=== PATIENT | male | born 1945 | race Hispanic/Latino ===

== ENCOUNTER 2017-08-21 05:48 | Inpatient (IN) | payer OTHER, MEDICARE ==
[2014-12-15 10:13] VITALS: PULSE 124
[2017-08-15 15:47] VITALS: BMI 30.6
[2017-08-21] MEDS ORDERED: Lactated Ringer's 1,000 ML IV ONE ×2 (06:35→11:00)
[2017-08-21] MEDS ORDERED: Sodium Chloride 0.9% 20 ML IV ONE (08:12)
[2017-08-21] MEDS ORDERED: Morphine 1 mg/ml preservative-free Inj(Duramorph) ONE (08:12)
[2017-08-21] MEDS ORDERED: EPINEPHrine 1 mg/ml (1:1000) Inj ONE (08:12)
[2017-08-21] MEDS ORDERED: Thrombin Topical 5,000 IU Spray Kit ONE (08:13)
[2017-08-21] MEDS ORDERED: Absorbable Gelatin Sponge Size 100 ONE (08:13)
[2017-08-21] MEDS ORDERED: Bupivacaine 0.5% Inj(30mL) ONE (08:13)
[2017-08-21] MEDS ORDERED: Neostigmine Methylsulfate 2 MG/2 ML ML IV ONE (08:20)
[2017-08-21] MEDS ORDERED: Succinylcholine 200 mg/10 ml Inj IV ONE (08:20)
[2017-08-21] MEDS ORDERED: Midazolam 2 MG/2 ML VIAL ONE (08:20)
[2017-08-21] MEDS ORDERED: Lidocaine 4% (Laryng-O-Jet) Kit MM ONE (08:20)
[2017-08-21] MEDS ORDERED: Propofol 10 mg/ml Inj (20 ML) ONE (08:20)
[2017-08-21] MEDS ORDERED: Rocuronium 10 mg/ml (5 ml) ONE ×2 (08:21→09:45)
[2017-08-21] MEDS ORDERED: ePHEDrine 50 mg/ml Inj ONE (09:26)
[2017-08-21] MEDS ORDERED: Sodium Chloride 0.9% Inj (10mL) IV ONE (10:49)
--- NOTE | 2017-08-21 11:36 | PCM.SURG1 ---
Surgeon's Initial Post Op Note - Surgeon's Notes Surgeon: Neema Adler MD Renderer: FIFI Monterroso Type of Anesthesia: General Endo Pre-Operative Diagnosis: Right Knee Severe osteoarthritis Operative Findings: see op report Post-Operative Diagnosis: same as pre-op dx Operation Performed: R TKR Specimen/Specimens Removed: right knee bone and soft tissue Estimated Blood Loss: EBL {In ML}: 200 Date of Surgery/Procedure: 08/21/17 Time of Surgery/Procedure: 09:30
[2017-08-21] MEDS: HYDROmorphone 0.5 mg/0.5 ml ISec IVP PRN ×4 (11:54→12:55)
--- NOTE | 2017-08-21 13:16 | RAD ---
PROCEDURE: Right Knee Radiographs. HISTORY: s/p RTKR COMPARISON: None. FINDINGS: BONES: Status post right total knee replacement. No acute osseous fracture. Prosthesis in gross alignment. Postoperative changes noted with anterior surgical rhonda and air in suprapatellar bursa. JOINTS: As above JOINT EFFUSION: None. OTHER FINDINGS: None. IMPRESSION: Status post right TKR.
--- NOTE | 2017-08-21 13:36 | RAD ---
PROCEDURE: Pelvis and right hip HISTORY: s/p RTKR (and previous RTHR) COMPARISON: 03/16/2015 TECHNIQUE: Standard protocol for this study/examination. FINDINGS: Satisfactory position alignment of bilateral VERONICA is as visualized without evidence of loosening or hardware failure. Otherwise unremarkable pelvic osseous structures and lower lumbar spine. IMPRESSION: No significant or acute findings to account for/ related to the clinical presentation. No significant interval change compared to the prior examination(s).
--- NOTE | 2017-08-21 14:10 | CP.PCM.HP ---
History of Present Illness - History of Present Illness History of Present Illness: 71 yo male with history of CAD, HLD, HTN and previous AFib had right TKR today after failing conservative management of osteoarthritis of the right knee. Present on Admission - Present on Admission Any Indicators Present on Admission: No History of DVT/PE: No History of Uncontrolled Diabetes: No Urinary Catheter: No Decubitus Ulcer Present: No Review of Systems - Review of Systems All systems: reviewed and no additional remarkable complaints except (aside from those mentioned above, 12 point system review were negative by me) Past Patient History - Infectious Disease Hx of Infectious Diseases: None - Tetanus Immunizations Tetanus Immunization: Unknown - Past Medical History & Family History Past Medical History?: Yes Past Family History: Reviewed and not pertinent - Past Social History Smoking Status: Former Smoker Alcohol: Occasional Drugs: Denies - CARDIAC Hx Cardiac Disorders: Yes Hx Atrial Fibrillation: Yes Hx Hypercholesterolemia: Yes Hx Hypertension: Yes Other/Comment: IRRAGULAR HEARTBEAT - PULMONARY Hx Respiratory Disorders: No - NEUROLOGICAL Hx Neurological Disorder: No - HEENT Hx HEENT Problems: Yes (RETINA) Hx Cataracts: Yes (O.U) Hx Glaucoma: Yes (both) Other/Comment: left DETACHED RETINA, bilateral cataract surgery - RENAL Hx Chronic Kidney Disease: Yes Hx Kidney Stones: Yes (LEFT) - ENDOCRINE/METABOLIC Hx Endocrine Disorders: No - HEMATOLOGICAL/ONCOLOGICAL Hx Blood Disorders: Yes Hx AIDS: No Hx Anemia: Yes Hx Blood Transfusions: Yes Hx Blood Transfusion Reaction: No Hx Human Immunodeficiency Virus (HIV): No - INTEGUMENTARY Hx Dermatological Problems: No Hx Basil Cell: Yes - MUSCULOSKELETAL/RHEUMATOLOGICAL Hx Musculoskeletal Disorders: Yes Hx Arthritis: Yes Hx Back Pain: Yes Hx Falls: No Hx Osteoarthritis: Yes Hx Rheumatoid Arthritis: No Hx Spinal Stenosis: Yes Other/Comment: 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; dissectomy of L4-L5 - GASTROINTESTINAL Hx Gastrointestinal Disorders: No Hx Gall Bladder Disease: Yes (gallstones) - GENITOURINARY/GYNECOLOGICAL Hx Genitourinary Disorders: No Other/Comment: BPH - PSYCHIATRIC Hx Psychophysiologic Disorder: No Hx Emotional Abuse: No Hx Physical Abuse: No Hx Substance Use: No - SURGICAL HISTORY Hx Surgeries: Yes Hx Cataract Extraction: Yes Hx Cardiac Catheterization: Yes Hx Eye Surgery: Yes (LT RETINA DETACHEMENT) Hx Joint Replacement: Yes (BILATERAL HIP REPLACEMENT) Hx Musculoskeletal Surgery: Yes (LUMBAR DISECTOMY 2003) Hx Orthopedic Surgery: Yes (LEFT TOTAL HIP) Other/Comment: SPINAL DISSECTOMY . RETINA DETTACHMENT O.S - ANESTHESIA Hx Anesthesia: Yes Hx Anesthesia Reactions: No Hx Malignant Hyperthermia: No Has any member of the family had a problem w/ anesthesia?: No Meds Allergies/Adverse Reactions: Allergies Allergy/AdvReac Type Severity Reaction Status Date / Time No Known Allergies Allergy Verified 03/11/15 17:21 Physical Exam - Constitutional Appears: No Acute Distress - Head Exam Head Exam: ATRAUMATIC - Eye Exam Eye Exam: absent: Scleral icterus - ENT Exam ENT Exam: Mucous Membranes Moist - Neck Exam Neck exam: Negative for: Meningismus - Respiratory Exam Respiratory Exam: absent: Rhonchi, Wheezes, Respiratory Distress - Cardiovascular Exam Cardiovascular Exam: REGULAR RHYTHM, +S1, +S2 - GI/Abdominal Exam GI & Abdominal Exam: Soft. absent: Tenderness - Rectal Exam Rectal Exam: Deferred - Neurological Exam Neurological exam: Alert, Oriented x3 - Psychiatric Exam Psychiatric exam: Normal Affect - Skin Skin Exam: Dry, Intact Results - Vital Signs Recent Vital Signs: Last Vital Signs Temp 97 F L 08/21/17 13:35 Pulse 79 08/21/17 13:50 Resp 17 08/21/17 13:50 BP 122/79 08/21/17 13:50 Pulse Ox 97 08/21/17 13:50 Assessment & Plan (1) Status post total knee replacement, right Status: Acute Comment: pain manageable with Dilaudid via SANDFILL OPERATOR SURFACE (2) Hypertension Status: Chronic Comment: BP stable. continue Lisinopril and HCTZ (3) HLD (hyperlipidemia) Status: Chronic Priority: Low Comment: continue Atorvastatin (4) Atrial fibrillation Status: Acute Comment: presently in sinus with normal rate. previously on Xarelto for months but was DC because rhythm remained in sinus; denied bleeding incident
[2017-08-21] MEDS ORDERED: ceFAZolin 1 GM in Sodium Chloride 0.9% 100 ML IVPB ONE (17:30)
[2017-08-21] MEDS ORDERED: Oxycodone/Acetaminophen 5/325 mg Tab PO PRN (17:33)
[2017-08-21] MEDS: Lactated Ringer's 1,000 ML IV SCH ×2 (17:35→21:51)
[2017-08-21] MEDS ORDERED: Pneumococcal 23-Valent Vaccine IM ONE (21:00)
[2017-08-21] MEDS: oxyCODONE 10 mg ER Tab (oxyCONTIN) PO SCH (21:01)
--- NOTE | 2017-08-21 21:09 | OP ---
PROCEDURE DATE: 08/21/2017 PREOPERATIVE DIAGNOSIS: Right knee osteoarthritis. POSTOPERATIVE DIAGNOSIS: Right knee osteoarthritis. PROCEDURE: Right total knee replacement. IMPLANTS SIZE: Size 5 femur, size 5 tibial baseplate, size 11 poly, and 35 mm patella button. ATTENDING SURGEON: Neema Adler MD LAYAWAY CLERK: Jose C Mai PA-C TYPE OF ANESTHESIA: General. ESTIMATED BLOOD LOSS: 50 mL COMPLICATIONS: None. HISTORY: The patient with prolonged history of right knee pain progressively getting worse despite extensive conservative management, which included activity modification, injections, anti-inflammatory modification and physical therapy. X-rays had revealed advanced arthritis. Patient was indicated for total knee replacement due to continued pain and limited mobility. I had a detailed discussion with the patient in the office explaining the nature of the surgery, alternatives of surgery, risks and benefits, rehabilitation protocol and surgical markings. Risks of surgery include but not limited to continued pain, lack of motion, infection, vascular injury, DVT/PE, nerve injury including peroneal nerve dysfunction, reflex sympathetic dystrophy, compartment syndrome, unforeseen medical and/or anesthesia complications, limb loss, and even . The patient expressed an understanding of the risks and possible benefits of the procedure, and is also aware of the alternatives to surgery. PROCEDURE: On the day of the surgery, the patient was admitted to pre-operative holding area. A laterality sheet was completed confirming the correct operative site. The correct surgical knee was marked in the holding area and informed consent was signed from the patient. Once again, I reviewed the risks and benefits of the surgery with the patient in detail. These risks include but are not limited to continued pain, lack of motion, infection, vascular injury, DVT / PE, nerve injury including peroneal nerve dysfunction, reflex sympathetic dystrophy, symptomatic hardware, need for further procedure and surgeries, instability, iatrogenic fractures, compartment syndrome, unforeseen medical and/or anesthesia complications, limb loss, and even . The patient expressed an understanding of the risks and possible benefits of the procedure, also aware of the alternatives to surgery and signed the informed consent. The patient was transported to the operating room and placed in the supine position, general anesthesia with spinal was obtained. A padded tourniquet was applied to patient's operative thigh and appropriate prophylactic antibiotics were given. The operative leg was draped and prepped in standard sterile manner. Timeout was completed, confirming patient's right knee to be the correct operative site. Using an Esmarch, the extremity was exsanguinated and tourniquet was inflated to 350 mmHg. The surgical incision markings were made using patella border, tibial tubercle, patella and quadriceps tendon. Using a 10 blade, a midline incision was made. Skin dissection was taken until the prepatellar fascia was identified and the corners of the patellar tendon were marked for proper closure at the end of the procedure. Using a fresh 10 blade, a medial parapatellar arthrotomy was performed. The knee was exposed in the standard manner. The deep MCL was elevated for exposure, medial and lateral menisci were removed, ACL and PCL were also transected. The tibia was subluxed anteriorly. Planned tibial cut was made with power saw, using extra-medullary guide, perpendicular to mechanical axis of the tibia. After the cut was made, the alignment was also checked and was found to be appropriate. Tibial cut surface was measured with trial base plate and it was noted that size 5 tibial baseplate was provide sufficient coverage without overhang. Tibial component was externally rotated and marked. Next, the knee was placed into 90 degrees of flexion. A drill hole was made within the femoral notch anterior to PCL insertion for placement of intramedullary femoral suma. Intramedullary femoral suma was inserted within the femoral canal and planned distal femoral cut was made. After the cut, knee was brought into full extension. Spacer blocks were used to check the extension balancing both in full extension and 30 degrees of flexion. It was found that a 11 mm trial spacer block allowed full extension with symmetric varus and valgus balancing. Next we proceed with Patella resurfacing. Patella width was found to 28 mm. Using the free-hand technique the arthritic patella surface was resected. Patella was sized using the guide and it was noted that 35 mm patella dome button would be appropriate for the patient. Next the size of femoral component was determined using the posterior referencing guide. It was noted that a size 5 femur would be appropriate for this patient without causing any significant notching. A 4 x 1 cutting block was placed and flexion gap balancing was checked. The flexion gap was found to be symmetric to the extension gap. Anterior and posterior condyle, anterior and posterior chamfer cuts were made. Next, appropriate size box cut for femoral component was prepared using the guide. The femoral trial component was impacted onto the distal femur. Appropriate size tibial trial component was also placed on the cut surface of the tibia. Using the drill and punch, keel for tibial implant was prepared. Trial tibial tray was secured onto the tibia using pins. Different size trial polyethylene inserts were secured on to the trial tibial tray to critically assess the following parameters: Full range of motion, extension and flexion gap balancing, mid-flexion stability, anterior and posterior drawer, and patellar tracking. All parameter were found to be satisfactory with 11 mm insert. All the trial components were removed. Implants were opened on the back table. Cement was mixed and we proceed with cement fixation of the implants. Tibial tray, femoral component and patellar dome button were secured with cement. Polyethylene insert was secured onto the tibial tray using locking mechanism. The knee was reduced and brought into full extension. Cement was allowed to harden until final component fixation. Knee was taken through the final range of motion for stability testing, and found to be satisfactory. 60 cc of custom cocktail mixture was injected into posterior capsule, MCL, LCL, quadriceps tendon, and patellar tendon. Wound was copiously irrigated with sterile antibiotic solution using pulse lavage. Arthrotomy was closed using heavy suture and wound was closed in standard manner. Patient was extubated, transferred to stretcher and taken to the recovery room. Post-operative instructions were provided, physical therapy consult was requested along with DVT prophylaxis and appropriate pain medications. During this procedure, I was assisted by Jose C Mai PA-C, who assisted in positioning the patient on the operating room table as well as transferring the patient from the operating room table to the recovery room stretcher. In addition, Jose C Mai PA-C assisted me during the actual operative procedure by positioning, protecting critical neurovascular structures, exposure of the joint, and proper positioning of the implants. The presence of Jose C Mai PA-C as my operative business development assistant was medically necessary to ensure the utmost safety of the patient in the pre, intra-, and post-operative periods. Neema Adler MD
[2017-08-21] MEDS ORDERED: Latanoprost 0.005% Opht SOUTION OU SCH (22:00)
[2017-08-22] MEDS ORDERED: ceFAZolin 1 GM in Sodium Chloride 0.9% 100 ML IVPB ONE (01:30)
[2017-08-22 06:33] LABS: BASO % 0.4 % (0.0-2.0); EOS # 0.2 K/uL (0.0-0.7); EOS % 2.7 % (0.0-4.0); HEMATOCRIT 31.1 % (35.0-51.0); LYMPH # 1.6 K/uL (1.0-4.3); LYMPH % 26.4 % (20.0-40.0); MEAN CELL VOLUME 97.5 fl (80.0-94.0); MEAN CORPUSCULAR HEMOGLOBIN 32.8 pg (27.0-31.0); MEAN CORPUSCULAR HGB CONC 33.6 g/dL (33.0-37.0); MEAN PLATELET VOLUME 7.9 fl (7.2-11.7); MONO # 0.8 K/uL (0.0-0.8); MONO % 12.9 % (0.0-10.0); NEUT # 3.5 K/uL (1.8-7.0); NEUT % 57.6 % (50.0-75.0); NRBC % 0.1 % (0.0-0.0); RED CELL DISTRIBUTION WIDTH 13.4 % (11.5-14.5); WHITE BLOOD COUNT 6.1 K/uL (4.8-10.8)
[2017-08-22 06:44] LABS: BLOOD UREA NITROGEN 21 mg/dl (9-20); CARBON DIOXIDE 28 mmol/L (22-30); CHLORIDE 101 mmol/L (98-107); GFR AFRICAN-AMERICAN > 60; GLUCOSE,RANDOM 123 mg/dL (75-110); POTASSIUM 3.9 MMOL/L (3.6-5.0); SODIUM 137 mmol/l (132-148)
[2017-08-22 07:25] LABS: PARTIAL THROMBOPLASTIN TIME 28.3 Seconds (25.6-37.1)
[2017-08-22 08:14] VITALS: BP 103/68; PULSE 74; RESP 20; TEMP 99.4; O2SAT 97
[2017-08-22] MEDS: oxyCODONE 10 mg ER Tab (oxyCONTIN) PO SCH (08:27)
--- NOTE | 2017-08-22 08:27 | CP.PCM.CON ---
History of Present Illness - History of Present Illness History of Present Illness: This 70-year-old man underwent knee replacement yesterday. He has had a history of atrial fibrillation following a hip replacement in March 2014. The patient had an extended and a stormy po op recovery at that time. The patient is a hypertensive with a history of dyslipidemia and takes a statin as well as an ALFREDO inhibitor. He has never been a smoker has never suffered a myocardial infarction of congestive cardiac failure. His physical activities with severely curtailed because of osteoarthritic pains in both knees. Physical examination shows a middle aged man alert, awake and coherent man and fairly symptom free at this point. Afebrile with a pulse rate of 68 bpm regular and a blood pressure of 114/70 mmHg. He is jugular venous pressure was not elevated and there was no edema on his lower extremities. The pedal pulses were well felt. The surgical site was dry and there was no evidence of induration or redness. The apex was in the fifth space. The first and second heart sounds were normal. There was no murmur or gallop. Abdomen was soft liver and spleen are not palpable. He is hemoglobin this morning was 10.4 g as compared to 14.4 at the beginning of August when preop labs were drawn. His WBC count and platelet counts were normal. His BUN was 21 mg. His electrolytes were normal. Impression: Post op day 1 following portly replacement. History of hypertension and dyslipidemia and chronic intertriginous obesity. The patient is stable from cardiovascular point of view. I have requested CBC for tomorrow to monitor his hemoglobin. I started him on iron replacement. The patient may proceed with post op physical therapy. Past Patient History - Infectious Disease Hx of Infectious Diseases: None - Tetanus Immunizations Tetanus Immunization: Unknown - Past Medical History & Family History Past Medical History?: Yes Past Family History: Reviewed and not pertinent - Past Social History Smoking Status: Former Smoker Alcohol: Occasional Drugs: Denies - CARDIAC Hx Cardiac Disorders: Yes Hx Atrial Fibrillation: Yes Hx Hypercholesterolemia: Yes Hx Hypertension: Yes Other/Comment: IRRAGULAR HEARTBEAT - PULMONARY Hx Respiratory Disorders: No - NEUROLOGICAL Hx Neurological Disorder: No - HEENT Hx HEENT Problems: Yes (RETINA) Hx Cataracts: Yes (O.U) Hx Glaucoma: Yes (both) Other/Comment: left DETACHED RETINA, bilateral cataract surgery - RENAL Hx Chronic Kidney Disease: Yes Hx Kidney Stones: Yes (LEFT) - ENDOCRINE/METABOLIC Hx Endocrine Disorders: No - HEMATOLOGICAL/ONCOLOGICAL Hx Blood Disorders: Yes Hx AIDS: No Hx Anemia: Yes Hx Blood Transfusions: Yes Hx Blood Transfusion Reaction: No Hx Human Immunodeficiency Virus (HIV): No - INTEGUMENTARY Hx Dermatological Problems: No Hx Basil Cell: Yes - MUSCULOSKELETAL/RHEUMATOLOGICAL Hx Musculoskeletal Disorders: Yes Hx Arthritis: Yes Hx Back Pain: Yes Hx Falls: No Hx Osteoarthritis: Yes Hx Rheumatoid Arthritis: No Hx Spinal Stenosis: Yes Other/Comment: 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; dissectomy of L4-L5 - GASTROINTESTINAL Hx Gastrointestinal Disorders: No Hx Gall Bladder Disease: Yes (gallstones) - GENITOURINARY/GYNECOLOGICAL Hx Genitourinary Disorders: No Other/Comment: BPH - PSYCHIATRIC Hx Psychophysiologic Disorder: No Hx Emotional Abuse: No Hx Physical Abuse: No Hx Substance Use: No - SURGICAL HISTORY Hx Surgeries: Yes Hx Cataract Extraction: Yes Hx Cardiac Catheterization: Yes Hx Eye Surgery: Yes (LT RETINA DETACHEMENT) Hx Joint Replacement: Yes (BILATERAL HIP REPLACEMENT) Hx Musculoskeletal Surgery: Yes (LUMBAR DISECTOMY 2003) Hx Orthopedic Surgery: Yes (LEFT TOTAL HIP) Other/Comment: SPINAL DISSECTOMY . RETINA DETTACHMENT O.S - ANESTHESIA Hx Anesthesia: Yes Hx Anesthesia Reactions: No Hx Malignant Hyperthermia: No Has any member of the family had a problem w/ anesthesia?: No Meds Allergies/Adverse Reactions: Allergies Allergy/AdvReac Type Severity Reaction Status Date / Time No Known Allergies Allergy Verified 03/11/15 17:21 - Medications Medications: Current Medications Acetaminophen (Tylenol 325mg Tab) 325 mg PO Q4 PRN PRN Reason: pain1-3 Aspirin (Aspirin) 325 mg PO BID [facility] Atorvastatin Calcium (Lipitor) 20 mg PO HS [facility] Last Admin: 08/21/17 21:02 Dose: 20 mg Celecoxib (Celebrex) 100 mg PO Q12 [facility] Last Admin: 08/21/17 21:02 Dose: 100 mg Docusate Sodium (Colace) 100 mg PO BID [facility] Last Admin: 08/21/17 17:34 Dose: 100 mg Hydromorphone HCl (Dilaudid 0.2 Mg/Ml [employer]) 6 mg IV Q6 [facility] PRN Reason: Protocol Last Admin: 08/22/17 03:54 Dose: Not Given Lactated Ringer's (Lactated Ringer's) 1,000 mls @ 100 mls/hr IV .Q10H [facility] Last Admin: 08/21/17 21:51 Dose: 100 mls/hr Ketorolac Tromethamine (Toradol) 15 mg IM Q8@0400,1200,2000 [facility] Last Admin: 08/22/17 04:14 Dose: 15 mg Latanoprost (Xalatan Opht) 1 drop OU HS [facility] Lisinopril (Zestril) 10 mg PO DAILY [facility] Oxycodone HCl (Oxycontin Extended Release Tab) 10 mg PO Q12 [facility] Stop: 09/04/17 21:01 Last Admin: 08/21/17 21:01 Dose: 10 mg Oxycodone/Acetaminophen (Percocet 5/325 Mg Tab) 1 tab PO Q4 PRN PRN Reason: pain4-6 Stop: 08/24/17 17:34 Results - Vital Signs Recent Vital Signs: Last Vital Signs Temp 99.4 F 08/22/17 08:14 Pulse 74 08/22/17 08:14 Resp 20 08/22/17 08:14 BP 103/68 08/22/17 08:14 Pulse Ox 97 08/22/17 08:14 - Labs Result Diagrams: 08/22/17 05:40 08/22/17 05:40 Labs: Laboratory Results - last 24 hr 08/22/17 08/22/17 08/22/17 05:40 05:40 05:40 WBC 6.1 RBC 3.19 L Hgb 10.4 L D Hct 31.1 L MCV 97.5 H MCH 32.8 H MCHC 33.6 RDW 13.4 Plt Count 152 MPV 7.9 Neut % (Auto) 57.6 Lymph % (Auto) 26.4 [place] % (Auto) 12.9 H Eos % (Auto) 2.7 Baso % (Auto) 0.4 Neut # 3.5 Lymph # 1.6 [place] # 0.8 Eos # 0.2 Baso # 0.0 PT 12.7 INR 1.1 APTT 28.3 Sodium 137 Potassium 3.9 Chloride 101 Carbon Dioxide 28 Anion Gap 12 BUN 21 H Creatinine 0.9 Est GFR ( Amer) > 60 Est GFR (Non-Af Amer) > 60 Random Glucose 123 H Calcium 8.0 L
[2017-08-22] MEDS ORDERED: Docusate Sodium/Ferrous Fumara 1 TAB PO SCH (09:00)
--- NOTE | 2017-08-22 09:11 | CP.PCM.PN ---
Subjective - Date & Time of Evaluation Date of Evaluation: 08/22/17 Time of Evaluation: 08:30 - Subjective Subjective: S/P RTKR POD#1 Pt seen and examined at bedside, comfortable in bed Pt c/o mild right knee and thigh pain Pt denies any SOB, chest pain, N/V/D, numbness/tingling RLE Objective - Vital Signs/Intake and Output Vital Signs (last 24 hours): Temp Pulse Resp BP Pulse Ox 99.4 F 74 20 103/68 97 08/22/17 08:14 08/22/17 08:14 08/22/17 08:14 08/22/17 08:14 08/22/17 08:14 - Medications Medications: Current Medications Acetaminophen (Tylenol 325mg Tab) 325 mg PO Q4 PRN PRN Reason: pain1-3 Aspirin (Aspirin) 325 mg PO BID [facility] Atorvastatin Calcium (Lipitor) 20 mg PO HS [facility] Last Admin: 08/21/17 21:02 Dose: 20 mg Celecoxib (Celebrex) 100 mg PO Q12 [facility] Last Admin: 08/22/17 08:27 Dose: 100 mg Docusate Sodium (Colace) 100 mg PO BID [facility] Last Admin: 08/22/17 08:28 Dose: 100 mg Docusate Sodium/Ferrous Fumarate (Kandi-Sequels 100 Mg -150 Mg) 1 tab PO BID [facility] Hydromorphone HCl (Dilaudid 0.2 Mg/Ml [employer]) 6 mg IV Q6 [facility] PRN Reason: Protocol Last Admin: 08/22/17 03:54 Dose: Not Given Lactated Ringer's (Lactated Ringer's) 1,000 mls @ 100 mls/hr IV .Q10H [facility] Last Admin: 08/21/17 21:51 Dose: 100 mls/hr Ketorolac Tromethamine (Toradol) 15 mg IM Q8@0400,1200,2000 [facility] Last Admin: 08/22/17 04:14 Dose: 15 mg Latanoprost (Xalatan Opht) 1 drop OU HS [facility] Lisinopril (Zestril) 10 mg PO DAILY [facility] Oxycodone HCl (Oxycontin Extended Release Tab) 10 mg PO Q12 [facility] Stop: 09/04/17 21:01 Last Admin: 08/22/17 08:27 Dose: 10 mg Oxycodone/Acetaminophen (Percocet 5/325 Mg Tab) 1 tab PO Q4 PRN PRN Reason: pain4-6 Stop: 08/24/17 17:34 - Labs Labs: 08/22/17 05:40 08/22/17 05:40 PT 12.7 Seconds (9.8-13.1) 08/22/17 05:40 INR 1.1 (0.9-1.2) 08/22/17 05:40 APTT 28.3 Seconds (25.6-37.1) 08/22/17 05:40 - Constitutional Appears: Well, No Acute Distress - Respiratory Exam Respiratory Exam: Clear to Ausculation Bilateral, NORMAL BREATHING PATTERN - Cardiovascular Exam Cardiovascular Exam: REGULAR RHYTHM, RRR - Extremities Exam Additional comments: RLE: Knee dressing C/D/I Calves soft and nontender b/l +right foot drop (present pre-operatively) N/V intact distally distal pulses wnl Assessment and Plan - Assessment and Plan (Free Text) Assessment: 71 yo M s/p RTKR POD#1 Plan: Pain Control DVT ppx PT/OT WBAT RLE Incentive Spirometer f/u labs discussed with Dr. Adler
--- NOTE | 2017-08-22 09:56 | CARD ---
APPROVED REPORT EKG Measurement Heart [id number] <Conclusion> Sinus rhythm with 1st degree AV block Incomplete right bundle branch block Borderline ECG
--- NOTE | 2017-08-22 13:22 | CP.PCM.DIS ---
Provider - Provider Date of Admission: 08/21/17 11:45 Attending physician: Joseph Duenas MD Primary care physician: Jeramie Beck MD Consults: Dr Nayely Lambert Time Spent in preparation of Discharge (in minutes): 25 Diagnosis - Discharge Diagnosis (1) Status post total knee replacement, right Status: Acute Comment: started PT without difficulty. almost pain free. dressing on right knee intact and dry (2) Hypertension Status: Chronic Comment: BP stable. continue Lisinopril. HCTZ held because of low BP earlier (3) HLD (hyperlipidemia) Status: Chronic Priority: Low Comment: continue Atorvastatin (4) Atrial fibrillation Status: Acute Comment: in sinus with normal rate. do not need anticoagulation since he has been in sinus since 2014 Hospital Course - Lab Results Lab Results: Most Recent Lab Values WBC 6.1 K/uL (4.8-10.8) 08/22/17 05:40 RBC 3.19 Mil/uL (4.40-5.90) L 08/22/17 05:40 Hgb 10.4 g/dL (12.0-18.0) L D 08/22/17 05:40 Hct 31.1 % (35.0-51.0) L 08/22/17 05:40 MCV 97.5 fl (80.0-94.0) H 08/22/17 05:40 MCH 32.8 pg (27.0-31.0) H 08/22/17 05:40 MCHC 33.6 g/dL (33.0-37.0) 08/22/17 05:40 RDW 13.4 % (11.5-14.5) 08/22/17 05:40 Plt Count 152 K/uL (130-400) 08/22/17 05:40 MPV 7.9 fl (7.2-11.7) 08/22/17 05:40 Neut % (Auto) 57.6 % (50.0-75.0) 08/22/17 05:40 Lymph % (Auto) 26.4 % (20.0-40.0) 08/22/17 05:40 [place] % (Auto) 12.9 % (0.0-10.0) H 08/22/17 05:40 Eos % (Auto) 2.7 % (0.0-4.0) 08/22/17 05:40 Baso % (Auto) 0.4 % (0.0-2.0) 08/22/17 05:40 Neut # 3.5 K/uL (1.8-7.0) 08/22/17 05:40 Lymph # 1.6 K/uL (1.0-4.3) 08/22/17 05:40 [place] # 0.8 K/uL (0.0-0.8) 08/22/17 05:40 Eos # 0.2 K/uL (0.0-0.7) 08/22/17 05:40 Baso # 0.0 K/uL (0.0-0.2) 08/22/17 05:40 PT 12.7 Seconds (9.8-13.1) 08/22/17 05:40 INR 1.1 (0.9-1.2) 08/22/17 05:40 APTT 28.3 Seconds (25.6-37.1) 08/22/17 05:40 Sodium 137 mmol/l (132-148) 08/22/17 05:40 Potassium 3.9 MMOL/L (3.6-5.0) 08/22/17 05:40 Chloride 101 mmol/L (98-107) 08/22/17 05:40 Carbon Dioxide 28 mmol/L (22-30) 08/22/17 05:40 Anion Gap 12 (10-20) 08/22/17 05:40 BUN 21 mg/dl (9-20) H 08/22/17 05:40 Creatinine 0.9 mg/dL (0.8-1.5) 08/22/17 05:40 Est GFR ( Amer) > 60 08/22/17 05:40 Est GFR (Non-Af Amer) > 60 08/22/17 05:40 Random Glucose 123 mg/dL (75-110) H 08/22/17 05:40 Calcium 8.0 mg/dL (8.4-10.2) L 08/22/17 05:40 - Hospital Course Hospital Course: 71 yo male with history of CAD, HLD, HTN and previous AFib had right TKR after failing conservative management of osteoarthritis of the right knee. Patient did well with surgery and had started PT on post op day 1 with out a problem. He is discharged to acute rehab so he could have registered phlebotomist part time PT in the unit. Discharge Exam - Head Exam Head Exam: ATRAUMATIC - Eye Exam Eye Exam: absent: Scleral icterus - ENT Exam ENT Exam: Mucous Membranes Moist - Respiratory Exam Respiratory Exam: absent: Rhonchi, Wheezes, Respiratory Distress - Cardiovascular Exam Cardiovascular Exam: REGULAR RHYTHM, +S1, +S2 - GI/Abdominal Exam GI & Abdominal Exam: Soft. absent: Tenderness - Rectal Exam Rectal Exam: Deferred - Neurological Exam Neurological exam: Alert, Oriented x3 - Psychiatric Exam Psychiatric exam: Normal Affect - Skin Skin Exam: Dry, Intact Discharge Plan - Follow Up Plan Condition: GOOD Disposition: HOME/ ROUTINE Instructions: Knee Replacement (DC) Referrals: Jeramie Beck MD [Primary Care Provider] -
== END 2017-08-22 14:40 | DRG 470 ==
LOC: H.OPSURG 05:48 → H.MEDSURG1 11:45
PROC: 3E0234Z Introduction of Serum, Toxoid and Vaccine into Muscle, Percutaneous Approach (ICD-10-PCS; 2017-08-21)
PROC: 0SRC0J9 Replacement of Right Knee Joint with Synthetic Substitute, Cemented, Open Approach (ICD-10-PCS; principal; 2017-08-21 09:00)
DX: M17.11 Unilateral primary osteoarthritis, right knee (principal); I48.91 Unspecified atrial fibrillation; I10 Essential (primary) hypertension; E78.5 Hyperlipidemia, unspecified; I25.10 Atherosclerotic heart disease of native coronary artery without angina pectoris; N40.0 Benign prostatic hyperplasia without lower urinary tract symptoms; H40.9 Unspecified glaucoma; Z96.643 Presence of artificial hip joint, bilateral; Z23 Encounter for immunization; Z87.891 Personal history of nicotine dependence; Z87.442 Personal history of urinary calculi

== ENCOUNTER 2017-08-22 12:01 | Inpatient (IN) | payer OTHER, MEDICARE ==
[2014-12-15 10:13] VITALS: PULSE 124
[2017-08-22 12:06] VITALS: BMI 30.6
--- NOTE | 2017-08-22 17:05 | PCM.OPOC ---
Physiatry Overall Plan of Care - Overall Plan of Care Estimated Length of Stay in Weeks: 2 Rehab Impairment: Mobility, Gait, Balance Etiologic Diagnosis: Hip/Knee Surgery Rehab/Medical Prognosis: Fair - Anticipated Interventions Physical Therapy:: Yes Occupational Therapy:: Yes Speech Therapy:: No Recreational Therapy:: Yes - Therapy Goals Bed Mobility: Supervision Ambulation: Supervision Functional Positional Changes:: Supervision - Discharge Plan Discharge Destination: Home
--- NOTE | 2017-08-22 17:07 | CP.PCM.CON ---
History of Present Illness - History of Present Illness History of Present Illness: Dr Giron PMR consultation on Geovanny Palomares, born 1945, who has been admitted to [facility] for acute inpatient rehabilitation following a right TKR by Dr Adler. Had failed conservative care. Also noted DJD left knee and is s/p bilateral THR in the past. + constipation Review of Systems - Constitutional Constitutional: absent: Anorexia, Chills - EENT Eyes: absent: Blurred Vision Ears: absent: Decreased Hearing, Disequilibrium Nose/Mouth/Throat: absent: Nasal Congestion - Cardiovascular Cardiovascular: absent: Chest Pain - Respiratory Respiratory: absent: Cough, Dyspnea - Gastrointestinal Gastrointestinal: Constipation. absent: Abdominal Pain, Belching - Integumentary Integumentary: absent: Bleeding Lesions (right knee incision) - Neurological Neurological: absent: Abnormal Movements, Loss of Vision, Paresthesias Past Patient History - Infectious Disease Hx of Infectious Diseases: None - Tetanus Immunizations Tetanus Immunization: Unknown - Past Medical History & Family History Past Medical History?: Yes - Past Social History Smoking Status: Never Smoked - CARDIAC Hx Cardiac Disorders: Yes Hx Atrial Fibrillation: Yes Hx Hypercholesterolemia: Yes Hx Hypertension: Yes Other/Comment: IRRAGULAR HEARTBEAT - PULMONARY Hx Respiratory Disorders: No - NEUROLOGICAL Hx Neurological Disorder: No - HEENT Hx HEENT Problems: Yes Hx Cataracts: Yes (both) - RENAL Hx Kidney Stones: Yes (LEFT) - ENDOCRINE/METABOLIC Hx Endocrine Disorders: No - HEMATOLOGICAL/ONCOLOGICAL Hx AIDS: No Hx Anemia: Yes Hx Blood Transfusions: Yes (2014) Hx Blood Transfusion Reaction: No Hx Human Immunodeficiency Virus (HIV): No - INTEGUMENTARY Hx Dermatological Problems: Yes - MUSCULOSKELETAL/RHEUMATOLOGICAL Hx Arthritis: Yes (both knees) Hx Back Pain: Yes (spinal discectomy) Hx Degenerative Joint Disease: Yes Hx Falls: No - GASTROINTESTINAL Hx Gastrointestinal Disorders: Yes - GENITOURINARY/GYNECOLOGICAL Hx Genitourinary Disorders: No Other/Comment: BPH - PSYCHIATRIC Hx Substance Use: No - SURGICAL HISTORY Hx Cataract Extraction: Yes (BILATERAL) Hx Eye Surgery: Yes (left eye retina detachment) Hx Joint Replacement: Yes (BILATERAL HIP) Hx Orthopedic Surgery: Yes (s/p right TKR) Other/Comment: EPIDURALS X3, RIGHT THR 03/08/15 - ANESTHESIA Hx Anesthesia: Yes Hx Anesthesia Reactions: No Hx Malignant Hyperthermia: No Has any member of the family had a problem w/ anesthesia?: No Meds Allergies/Adverse Reactions: Allergies Allergy/AdvReac Type Severity Reaction Status Date / Time No Known Allergies Allergy Verified 03/11/15 17:21 - Medications Medications: Current Medications Acetaminophen (Tylenol 325mg Tab) 325 mg PO Q4 PRN PRN Reason: Pain, Mild (1-3) Aspirin (Ecotrin) 325 mg PO Q12 [facility] Atorvastatin Calcium (Lipitor) 20 mg PO HS [facility] Celecoxib (Celebrex) 100 mg PO Q12 [facility] Docusate Sodium (Colace) 100 mg PO BID [facility] Docusate Sodium/Ferrous Fumarate (Kandi-Sequels 100 Mg -150 Mg) 1 tab PO BID [facility] Latanoprost (Xalatan Opht) 1 drop OU HS [facility] Lisinopril (Zestril) 10 mg PO DAILY [facility] Oxycodone HCl (Oxycontin Extended Release Tab) 10 mg PO Q12 [facility] Stop: 08/25/17 21:01 Oxycodone/Acetaminophen (Percocet 5/325 Mg Tab) 1 tab PO Q4 PRN PRN Reason: Pain, Moderate (4-10) Stop: 08/25/17 15:47 Tamsulosin HCl (Flomax) 0.4 mg PO HS [facility] Physical Exam - Constitutional Appears: Well, Non-toxic, No Acute Distress - Head Exam Head Exam: ATRAUMATIC, NORMAL INSPECTION, NORMOCEPHALIC - Eye Exam Eye Exam: EOMI - ENT Exam ENT Exam: Mucous Membranes Moist - Respiratory Exam Respiratory Exam: NORMAL BREATHING PATTERN - Cardiovascular Exam Cardiovascular Exam: REGULAR RHYTHM - GI/Abdominal Exam GI & Abdominal Exam: absent: Distended - Extremities Exam Extremities exam: Positive for: pedal edema. Negative for: calf tenderness - Neurological Exam Neurological exam: Alert, CN II-XII Intact, Oriented x3 - Psychiatric Exam Psychiatric exam: Normal Affect, Normal Mood - Skin Skin Exam: Warm Results - Vital Signs Recent Vital Signs: Last Vital Signs Temp 97.3 F L 08/22/17 16:30 Pulse 86 08/22/17 16:30 Resp 18 08/22/17 16:30 BP 113/62 08/22/17 16:30 Pulse Ox 95 08/22/17 16:30 Assessment & Plan - Assessment and Plan (Free Text) Assessment: Patient s/p right TKR PT/OT to continue to help increase functional independence Team conference for d/c planning Pain: controlled Vascular: no evidence of DVT GI: + constipation will increase bowel regimen Patient is an excellent acute rehabilitation candidate and will have focused pain management, wound care, PT, OT and recreational therapy to help facilitate a safe and appropriate d/c plan impairment code 08.61
[2017-08-22] MEDS: Docusate Sodium/Ferrous Fumara 1 TAB PO SCH (17:36)
[2017-08-22] MEDS: oxyCODONE 10 mg ER Tab (oxyCONTIN) PO SCH (21:15)
[2017-08-22] MEDS: Aspirin 325 mg EC Tablets PO SCH (21:41)
[2017-08-22] MEDS: Latanoprost 0.005% Opht SOUTION OU SCH (21:43)
[2017-08-23] MEDS: Oxycodone/Acetaminophen 5/325 mg Tab PO PRN ×2 (07:00→13:35)
[2017-08-23 07:08] LABS: BASO % 0.6 % (0.0-2.0); EOS # 0.3 K/uL (0.0-0.7); EOS % 4.5 % (0.0-4.0); HEMATOCRIT 31.4 % (35.0-51.0); LYMPH % 30.9 % (20.0-40.0); MEAN CELL VOLUME 97.6 fl (80.0-94.0); MEAN CORPUSCULAR HEMOGLOBIN 32.5 pg (27.0-31.0); MEAN CORPUSCULAR HGB CONC 33.3 g/dL (33.0-37.0); MEAN PLATELET VOLUME 7.9 fl (7.2-11.7); MONO # 0.8 K/uL (0.0-0.8); NEUT # 3.2 K/uL (1.8-7.0); RED CELL DISTRIBUTION WIDTH 12.8 % (11.5-14.5); WHITE BLOOD COUNT 6.4 K/uL (4.8-10.8)
[2017-08-23 07:36] LABS: BLOOD UREA NITROGEN 17 mg/dl (9-20); CALCIUM 8.1 mg/dL (8.4-10.2); CARBON DIOXIDE 28 mmol/L (22-30); CHLORIDE 104 mmol/L (98-107); GFR AFRICAN-AMERICAN > 60; GLUCOSE,RANDOM 122 mg/dL (75-110); POTASSIUM 3.8 MMOL/L (3.6-5.0); SODIUM 142 mmol/l (132-148)
[2017-08-23] MEDS: oxyCODONE 10 mg ER Tab (oxyCONTIN) PO SCH ×2 (08:18→20:50)
[2017-08-23] MEDS: Aspirin 325 mg EC Tablets PO SCH ×2 (08:20→21:05)
[2017-08-23] MEDS: Docusate Sodium/Ferrous Fumara 1 TAB PO SCH ×2 (08:21→17:48)
--- NOTE | 2017-08-23 09:32 | CP.PCM.CON ---
History of Present Illness - History of Present Illness History of Present Illness: This 71-year- old man who has undergone total right knee replacement 2 days back is now hospitalized in the acute care section of the hospital. He has a long history of hypertension and chronic exogenous obesity. He is never a diabetic and has never suffered a myocardial infarction and does not have congestive cardiac failure. The patient had a brief period of atrial fibrillation following hip replacement in 2013. Subsequently he has remained in regular sinus rhythm. On physical examination this is a middle aged man who is lying comfortably in bed fairly free of pain at this point alert awake and:. Afebrile with a pulse rate of 64 bpm regular and a blood pressure of 118/70 mmHg. His jugular venous pressure was not elevated and there was no edema over his lower extremity. His extremities were warm and his nailbeds are pink. There was no central or peripheral cyanosis. His pedal pulses were well felt. [place] was in the fifth space and first and second heart sounds were normal. There was no murmur or no gallop. There were no rales. His abdomen was soft liver and spleen are not palpable. Recent electrocardiogram and labs were noted. Impression: Recent total right knee replacement. History of hypertension and history of transient atrial fibrillation. Status post right hip replacement 3 years back. Patient's lisinopril dose was recently increased to get him ready for surgery. Now that the patient has not been taking any non-steroidal anti-inflammatory drugs I will give him a trial of low-dose of lisinopril which he used to take all along. If he begins to show elevated blood pressure readings he might need to go back to 20 mg of lisinopril daily. Past Patient History - Infectious Disease Hx of Infectious Diseases: None - Tetanus Immunizations Tetanus Immunization: Unknown - Past Medical History & Family History Past Medical History?: Yes - Past Social History Smoking Status: Never Smoked - CARDIAC Hx Cardiac Disorders: Yes Hx Atrial Fibrillation: Yes Hx Hypercholesterolemia: Yes Hx Hypertension: Yes Other/Comment: IRRAGULAR HEARTBEAT - PULMONARY Hx Respiratory Disorders: No - NEUROLOGICAL Hx Neurological Disorder: No - HEENT Hx HEENT Problems: Yes Hx Cataracts: Yes (both) - RENAL Hx Kidney Stones: Yes (LEFT) - ENDOCRINE/METABOLIC Hx Endocrine Disorders: No - HEMATOLOGICAL/ONCOLOGICAL Hx AIDS: No Hx Anemia: Yes Hx Blood Transfusions: Yes (2014) Hx Blood Transfusion Reaction: No Hx Human Immunodeficiency Virus (HIV): No - INTEGUMENTARY Hx Dermatological Problems: Yes - MUSCULOSKELETAL/RHEUMATOLOGICAL Hx Arthritis: Yes (both knees) Hx Back Pain: Yes (spinal discectomy) Hx Degenerative Joint Disease: Yes Hx Falls: No - GASTROINTESTINAL Hx Gastrointestinal Disorders: Yes - GENITOURINARY/GYNECOLOGICAL Hx Genitourinary Disorders: No Other/Comment: BPH - PSYCHIATRIC Hx Substance Use: No - SURGICAL HISTORY Hx Cataract Extraction: Yes (BILATERAL) Hx Eye Surgery: Yes (left eye retina detachment) Hx Joint Replacement: Yes (BILATERAL HIP) Hx Orthopedic Surgery: Yes (s/p right TKR) Other/Comment: EPIDURALS X3, RIGHT THR 03/08/15 - ANESTHESIA Hx Anesthesia: Yes Hx Anesthesia Reactions: No Hx Malignant Hyperthermia: No Has any member of the family had a problem w/ anesthesia?: No Meds Allergies/Adverse Reactions: Allergies Allergy/AdvReac Type Severity Reaction Status Date / Time No Known Allergies Allergy Verified 03/11/15 17:21 - Medications Medications: Current Medications Acetaminophen (Tylenol 325mg Tab) 325 mg PO Q4 PRN PRN Reason: Pain, Mild (1-3) Aspirin (Ecotrin) 325 mg PO Q12 [facility] Last Admin: 08/23/17 08:20 Dose: 325 mg Atorvastatin Calcium (Lipitor) 20 mg PO HS [facility] Last Admin: 08/22/17 21:42 Dose: 20 mg Celecoxib (Celebrex) 100 mg PO Q12 [facility] Last Admin: 08/23/17 08:20 Dose: 100 mg Docusate Sodium (Colace) 100 mg PO BID [facility] Last Admin: 08/23/17 08:21 Dose: 100 mg Docusate Sodium/Ferrous Fumarate (Kandi-Sequels 100 Mg -150 Mg) 1 tab PO BID [facility] Last Admin: 08/23/17 08:21 Dose: 1 tab Lactulose (Enulose) 20 gm PO DAILY PRN PRN Reason: Constipation Latanoprost (Xalatan Opht) 1 drop OU HS [facility] Last Admin: 08/22/17 21:43 Dose: 1 drop Lisinopril (Zestril) 10 mg PO DAILY [facility] Last Admin: 08/23/17 08:20 Dose: 10 mg Oxycodone HCl (Oxycontin Extended Release Tab) 10 mg PO Q12 [facility] Stop: 08/25/17 21:01 Last Admin: 08/23/17 08:18 Dose: 10 mg Oxycodone/Acetaminophen (Percocet 5/325 Mg Tab) 1 tab PO Q4 PRN PRN Reason: Pain, Moderate (4-10) Stop: 08/25/17 15:47 Last Admin: 08/23/17 07:00 Dose: 1 tab Tamsulosin HCl (Flomax) 0.4 mg PO HS [facility] Last Admin: 08/22/17 21:42 Dose: 0.4 mg Results - Vital Signs Recent Vital Signs: Last Vital Signs Temp 97.9 F 08/22/17 20:00 Pulse 98 H 08/23/17 08:20 Resp 20 08/22/17 20:00 BP 121/68 08/23/17 08:20 Pulse Ox 96 08/22/17 20:00 - Labs Result Diagrams: 08/23/17 06:30 08/23/17 06:30 Labs: Laboratory Results - last 24 hr 08/23/17 08/23/17 06:30 06:30 WBC 6.4 RBC 3.22 L Hgb 10.4 L Hct 31.4 L MCV 97.6 H MCH 32.5 H MCHC 33.3 RDW 12.8 Plt Count 153 MPV 7.9 Neut % (Auto) 51.0 Lymph % (Auto) 30.9 [place] % (Auto) 13.0 H Eos % (Auto) 4.5 H Baso % (Auto) 0.6 Neut # 3.2 Lymph # 2.0 [place] # 0.8 Eos # 0.3 Baso # 0.0 Sodium 142 Potassium 3.8 Chloride 104 Carbon Dioxide 28 Anion Gap 13 BUN 17 Creatinine 0.9 Est GFR ( Amer) > 60 Est GFR (Non-Af Amer) > 60 Random Glucose 122 H Calcium 8.1 L
--- NOTE | 2017-08-23 13:45 | CP.PCM.HP ---
History of Present Illness - History of Present Illness History of Present Illness: 71 yo male with history of CAD, HLD, HTN and previous AFib had right TKR after failing conservative management of osteoarthritis of the right knee. Patient did well with surgery and had started PT on post op day 1 without a problem. He was discharged from the medical floor and admitted to acute rehab so he could have multimedia educational specialist PT in the unit. Present on Admission - Present on Admission Any Indicators Present on Admission: No History of DVT/PE: No History of Uncontrolled Diabetes: No Urinary Catheter: No Decubitus Ulcer Present: No Review of Systems - Review of Systems All systems: reviewed and no additional remarkable complaints except (aside from those mentioned above, 12 point system review were negative by me) Past Patient History - Infectious Disease Hx of Infectious Diseases: None - Tetanus Immunizations Tetanus Immunization: Unknown - Past Medical History & Family History Past Medical History?: Yes - Past Social History Smoking Status: Former Smoker Alcohol: Occasional Drugs: Denies Home Situation {Lives}: With Family - CARDIAC Hx Cardiac Disorders: Yes Hx Atrial Fibrillation: Yes Hx Cardia Arrhythmia: Yes Hx Hypercholesterolemia: Yes Hx Hypertension: Yes - PULMONARY Hx Respiratory Disorders: No - NEUROLOGICAL Hx Neurological Disorder: No - HEENT Hx HEENT Problems: Yes Hx Cataracts: Yes (both) Hx Glaucoma: Yes (both) Other/Comment: detached retina - RENAL Hx Kidney Stones: Yes (LEFT) - ENDOCRINE/METABOLIC Hx Endocrine Disorders: No - HEMATOLOGICAL/ONCOLOGICAL Hx AIDS: No Hx Anemia: Yes Hx Blood Transfusions: Yes (2015) Hx Blood Transfusion Reaction: No Hx Human Immunodeficiency Virus (HIV): No - INTEGUMENTARY Hx Dermatological Problems: Yes Hx Basil Cell: Yes - MUSCULOSKELETAL/RHEUMATOLOGICAL Hx Arthritis: Yes (both knees) Hx Back Pain: Yes (spinal discectomy) Hx Degenerative Joint Disease: Yes Hx Falls: No Hx Osteoarthritis: Yes Hx Spinal Stenosis: Yes - GASTROINTESTINAL Hx Gastrointestinal Disorders: Yes - GENITOURINARY/GYNECOLOGICAL Other/Comment: BPH - PSYCHIATRIC Hx Substance Use: No - SURGICAL HISTORY Hx Cataract Extraction: Yes (BILATERAL) Hx Cardiac Catheterization: Yes Hx Eye Surgery: Yes (left eye retina detachment) Hx Joint Replacement: Yes (BILATERAL HIP) Hx Orthopedic Surgery: Yes (s/p right TKR) Other/Comment: EPIDURALS X3, BILATERAL THR, 2015 - ANESTHESIA Hx Anesthesia: Yes Hx Anesthesia Reactions: No Hx Malignant Hyperthermia: No Has any member of the family had a problem w/ anesthesia?: No Meds Allergies/Adverse Reactions: Allergies Allergy/AdvReac Type Severity Reaction Status Date / Time No Known Allergies Allergy Verified 03/11/15 17:21 Physical Exam - Constitutional Appears: No Acute Distress - Head Exam Head Exam: ATRAUMATIC - Eye Exam Eye Exam: absent: Scleral icterus - ENT Exam ENT Exam: Mucous Membranes Moist - Neck Exam Neck exam: Negative for: Meningismus - Respiratory Exam Respiratory Exam: absent: Rhonchi, Wheezes, Respiratory Distress - Cardiovascular Exam Cardiovascular Exam: REGULAR RHYTHM, +S1, +S2 - GI/Abdominal Exam GI & Abdominal Exam: Soft. absent: Tenderness - Rectal Exam Rectal Exam: Deferred - Extremities Exam Extremities exam: Negative for: full ROM (RIGHT KNEE) - Neurological Exam Neurological exam: Alert, Oriented x3 - Psychiatric Exam Psychiatric exam: Normal Affect - Skin Skin Exam: Dry, Intact Results - Vital Signs Recent Vital Signs: Last Vital Signs Temp 98.1 F 08/23/17 09:00 Pulse 86 08/23/17 10:03 Resp 97 H 08/23/17 10:03 BP 121/68 08/23/17 09:00 Pulse Ox 94 L 08/23/17 09:00 - Labs Result Diagrams: 08/23/17 06:30 08/23/17 06:30 Labs: Laboratory Results - last 24 hr 08/23/17 08/23/17 06:30 06:30 WBC 6.4 RBC 3.22 L Hgb 10.4 L Hct 31.4 L MCV 97.6 H MCH 32.5 H MCHC 33.3 RDW 12.8 Plt Count 153 MPV 7.9 Neut % (Auto) 51.0 Lymph % (Auto) 30.9 [place] % (Auto) 13.0 H Eos % (Auto) 4.5 H Baso % (Auto) 0.6 Neut # 3.2 Lymph # 2.0 [place] # 0.8 Eos # 0.3 Baso # 0.0 Sodium 142 Potassium 3.8 Chloride 104 Carbon Dioxide 28 Anion Gap 13 BUN 17 Creatinine 0.9 Est GFR ( Amer) > 60 Est GFR (Non-Af Amer) > 60 Random Glucose 122 H Calcium 8.1 L Assessment & Plan - Assessment and Plan (Free Text) Assessment: 71 yo male with history of CAD, HLD, HTN and previous AFib had right TKR on 08/28 after failing conservative management of osteoarthritis of the right knee. Patient did well with surgery and had started PT on post op day 1 without any problem. He was discharged and admitted to acute rehab so he could have multimedia educational specialist PT in the unit. (1) Status post total knee replacement, right denied any pain continue PT/OT (2) Hypertension BP stable. continue Lisinopril 10mg PO daily (3) HLD (hyperlipidemia) continue Atorvastatin (4) Atrial fibrillation presently in sinus with normal rate. no recurrence since 2014
--- NOTE | 2017-08-23 17:53 | CP.PCM.PN ---
Subjective - Date & Time of Evaluation Date of Evaluation: 08/23/17 Time of Evaluation: 17:52 - Subjective Subjective: Patient seen in room with present, doing well pain is well controlled has >90 degrees ROM still constipated and I instructed him to ask for a fleets if no BM by tomorrow Objective - Vital Signs/Intake and Output Vital Signs (last 24 hours): Temp Pulse Resp BP Pulse Ox 98.1 F 86 97 H 121/68 94 L 08/23/17 09:00 08/23/17 10:03 08/23/17 10:03 08/23/17 09:00 08/23/17 09:00 - Medications Medications: Current Medications Acetaminophen (Tylenol 325mg Tab) 325 mg PO Q4 PRN PRN Reason: Pain, Mild (1-3) Aspirin (Ecotrin) 325 mg PO Q12 [facility] Last Admin: 08/23/17 08:20 Dose: 325 mg Atorvastatin Calcium (Lipitor) 20 mg PO HS [facility] Last Admin: 08/22/17 21:42 Dose: 20 mg Celecoxib (Celebrex) 100 mg PO Q12 [facility] Last Admin: 08/23/17 08:20 Dose: 100 mg Docusate Sodium (Colace) 100 mg PO BID [facility] Last Admin: 08/23/17 17:48 Dose: 100 mg Docusate Sodium/Ferrous Fumarate (Kandi-Sequels 100 Mg -150 Mg) 1 tab PO BID [facility] Last Admin: 08/23/17 17:48 Dose: 1 tab Hydrochlorothiazide (Microzide) 12.5 mg PO DAILY [facility] Last Admin: 08/23/17 11:00 Dose: 12.5 mg Lactulose (Enulose) 20 gm PO DAILY PRN PRN Reason: Constipation Last Admin: 08/23/17 15:52 Dose: 20 gm Latanoprost (Xalatan Opht) 1 drop OU HS [facility] Last Admin: 08/22/17 21:43 Dose: 1 drop Lisinopril (Zestril) 10 mg PO DAILY [facility] Last Admin: 08/23/17 08:20 Dose: 10 mg Oxycodone HCl (Oxycontin Extended Release Tab) 10 mg PO Q12 [facility] Stop: 08/25/17 21:01 Last Admin: 08/23/17 08:18 Dose: 10 mg Oxycodone/Acetaminophen (Percocet 5/325 Mg Tab) 1 tab PO Q4 PRN PRN Reason: Pain, Moderate (4-10) Stop: 08/25/17 15:47 Last Admin: 08/23/17 13:35 Dose: 1 tab Tamsulosin HCl (Flomax) 0.4 mg PO HS [facility] Last Admin: 08/22/17 21:42 Dose: 0.4 mg - Labs Labs: 08/23/17 06:30 08/23/17 06:30
[2017-08-23] MEDS: Latanoprost 0.005% Opht SOUTION OU SCH (21:07)
--- NOTE | 2017-08-24 08:32 | CP.PCM.PN ---
Subjective - Date & Time of Evaluation Date of Evaluation: 08/24/17 Time of Evaluation: 08:30 - Subjective Subjective: Had a good restful night, in good spirits Color good Pulse 68 BPM , BP 130/70 mm Hg No signs of CHF No DVT Yesterday's Hb 14.3 Gms (Unchanged from post op day 1) On Lisinopril 10 mg/HCTZ 12.5 mg daily Objective - Vital Signs/Intake and Output Vital Signs (last 24 hours): Temp Pulse Resp BP Pulse Ox 97.7 F 79 19 103/64 99 08/23/17 17:00 08/23/17 17:00 08/23/17 17:00 08/23/17 17:00 08/23/17 17:00 - Medications Medications: Current Medications Acetaminophen (Tylenol 325mg Tab) 325 mg PO Q4 PRN PRN Reason: Pain, Mild (1-3) Aspirin (Ecotrin) 325 mg PO Q12 [facility] Last Admin: 08/23/17 21:05 Dose: 325 mg Atorvastatin Calcium (Lipitor) 20 mg PO [facility] Last Admin: 08/23/17 21:05 Dose: 20 mg Celecoxib (Celebrex) 100 mg PO Q12 [facility] Last Admin: 08/23/17 21:05 Dose: 100 mg Docusate Sodium (Colace) 100 mg PO BID [facility] Last Admin: 08/23/17 17:48 Dose: 100 mg Docusate Sodium/Ferrous Fumarate (Kandi-Sequels 100 Mg -150 Mg) 1 tab PO BID [facility] Last Admin: 08/23/17 17:48 Dose: 1 tab Hydrochlorothiazide (Microzide) 12.5 mg PO DAILY [facility] Last Admin: 08/23/17 11:00 Dose: 12.5 mg Lactulose (Enulose) 20 gm PO DAILY PRN PRN Reason: Constipation Last Admin: 08/23/17 15:52 Dose: 20 gm Latanoprost (Xalatan Opht) 1 drop OU HS [facility] Last Admin: 08/23/17 21:07 Dose: 1 drop Lisinopril (Zestril) 10 mg PO DAILY [facility] Last Admin: 08/23/17 08:20 Dose: 10 mg Oxycodone HCl (Oxycontin Extended Release Tab) 10 mg PO Q12 [facility] Stop: 08/25/17 21:01 Last Admin: 08/23/17 20:50 Dose: 10 mg Oxycodone/Acetaminophen (Percocet 5/325 Mg Tab) 1 tab PO Q4 PRN PRN Reason: Pain, Moderate (4-10) Stop: 08/25/17 15:47 Last Admin: 08/23/17 13:35 Dose: 1 tab Tamsulosin HCl (Flomax) 0.4 mg PO HS [facility] Last Admin: 08/23/17 21:05 Dose: 0.4 mg - Labs Labs: 08/23/17 06:30 08/23/17 06:30
[2017-08-24] MEDS: Docusate Sodium/Ferrous Fumara 1 TAB PO SCH ×2 (08:51→17:49)
[2017-08-24] MEDS: Aspirin 325 mg EC Tablets PO SCH (08:52)
[2017-08-24] MEDS: oxyCODONE 10 mg ER Tab (oxyCONTIN) PO SCH ×2 (08:59→21:35)
--- NOTE | 2017-08-24 10:46 | CP.PCM.PN ---
Subjective - Date & Time of Evaluation Date of Evaluation: 08/24/17 Time of Evaluation: 10:44 - Subjective Subjective: PT SEEN EXAMINED FOR S/P R TKR DOING WELL NO OVERNIGHT EVENTS NO CHEST PAIN NO SOB Objective - Vital Signs/Intake and Output Vital Signs (last 24 hours): Temp Pulse Resp BP Pulse Ox 98.5 F 76 22 118/72 98 08/24/17 08:29 08/24/17 08:53 08/24/17 08:29 08/24/17 08:53 08/24/17 08:29 - Medications Medications: Current Medications Acetaminophen (Tylenol 325mg Tab) 325 mg PO Q4 PRN PRN Reason: Pain, Mild (1-3) Aspirin (Ecotrin) 325 mg PO Q12 [facility] Last Admin: 08/24/17 08:52 Dose: 325 mg Atorvastatin Calcium (Lipitor) 20 mg PO HS [facility] Last Admin: 08/23/17 21:05 Dose: 20 mg Celecoxib (Celebrex) 100 mg PO Q12 [facility] Last Admin: 08/24/17 08:52 Dose: 100 mg Docusate Sodium (Colace) 100 mg PO BID [facility] Last Admin: 08/24/17 08:51 Dose: 100 mg Docusate Sodium/Ferrous Fumarate (Kandi-Sequels 100 Mg -150 Mg) 1 tab PO BID [facility] Last Admin: 08/24/17 08:51 Dose: 1 tab Hydrochlorothiazide (Microzide) 12.5 mg PO DAILY [facility] Last Admin: 08/24/17 08:52 Dose: 12.5 mg Lactulose (Enulose) 20 gm PO DAILY PRN PRN Reason: Constipation Last Admin: 08/23/17 15:52 Dose: 20 gm Latanoprost (Xalatan Opht) 1 drop OU HS [facility] Last Admin: 08/23/17 21:07 Dose: 1 drop Lisinopril (Zestril) 10 mg PO DAILY [facility] Last Admin: 08/24/17 08:53 Dose: 10 mg Oxycodone HCl (Oxycontin Extended Release Tab) 10 mg PO Q12 [facility] Stop: 08/25/17 21:01 Last Admin: 08/24/17 08:59 Dose: 10 mg Oxycodone/Acetaminophen (Percocet 5/325 Mg Tab) 1 tab PO Q4 PRN PRN Reason: Pain, Moderate (4-10) Stop: 08/25/17 15:47 Last Admin: 08/23/17 13:35 Dose: 1 tab Tamsulosin HCl (Flomax) 0.4 mg PO HS [facility] Last Admin: 08/23/17 21:05 Dose: 0.4 mg - Labs Labs: 08/23/17 06:30 08/23/17 06:30 - Constitutional Appears: Non-toxic, No Acute Distress - Head Exam Head Exam: ATRAUMATIC, NORMOCEPHALIC - Eye Exam Eye Exam: EOMI, Normal appearance, PERRL - ENT Exam ENT Exam: Mucous Membranes Moist, Normal Oropharynx - Neck Exam Neck Exam: Full ROM, Normal Inspection - Respiratory Exam Respiratory Exam: Clear to Ausculation Bilateral, NORMAL BREATHING PATTERN - Cardiovascular Exam Cardiovascular Exam: RRR, +S1, +S2 - GI/Abdominal Exam GI & Abdominal Exam: Soft, Normal Bowel Sounds - Extremities Exam Extremities Exam: Normal Capillary Refill, Normal Inspection - Back Exam Back Exam: NORMAL INSPECTION. absent: rash noted - Psychiatric Exam Psychiatric exam: Normal Mood - Skin Skin Exam: Dry, Normal Color, Warm Assessment and Plan - Assessment and Plan (Free Text) Plan: 71 yo male with history of CAD, HLD, HTN and previous AFib had right TKR on 08/28 after failing conservative management of osteoarthritis of the right knee. Patient did well with surgery and had started PT on post op day 1 without any problem. He was discharged and admitted to acute rehab so he could have night time nanny PT in the unit. (1) Status post total knee replacement, right denied any pain continue PT/OT (2) Hypertension BP stable. continue Lisinopril 10mg PO daily (3) HLD (hyperlipidemia) continue Atorvastatin (4) Atrial fibrillation presently in sinus with normal rate. no recurrence since 2014
--- NOTE | 2017-08-24 11:05 | CP.PCM.PN ---
Subjective - Date & Time of Evaluation Date of Evaluation: 08/24/17 Time of Evaluation: 08:45 - Subjective Subjective: S/P RTKR POD#3 Pt seen and examined at bedside, comfortable in bed Pt c/o mild right knee pain, well controlled with pain meds Pt denies any current SOB, chest pain, N/V/D Objective - Vital Signs/Intake and Output Vital Signs (last 24 hours): Temp Pulse Resp BP Pulse Ox 98.5 F 76 22 118/72 98 08/24/17 08:29 08/24/17 08:53 08/24/17 08:29 08/24/17 08:53 08/24/17 08:29 - Medications Medications: Current Medications Acetaminophen (Tylenol 325mg Tab) 325 mg PO Q4 PRN PRN Reason: Pain, Mild (1-3) Aspirin (Aspirin) 325 mg PO ONCE ONE Stop: 08/24/17 21:01 Atorvastatin Calcium (Lipitor) 20 mg PO HS [facility] Last Admin: 08/23/17 21:05 Dose: 20 mg Celecoxib (Celebrex) 100 mg PO Q12 [facility] Last Admin: 08/24/17 08:52 Dose: 100 mg Docusate Sodium (Colace) 100 mg PO BID [facility] Last Admin: 08/24/17 08:51 Dose: 100 mg Docusate Sodium/Ferrous Fumarate (Kandi-Sequels 100 Mg -150 Mg) 1 tab PO BID [facility] Last Admin: 08/24/17 08:51 Dose: 1 tab Enoxaparin Sodium (Lovenox) 40 mg SC DAILY [facility] PRN Reason: Protocol Hydrochlorothiazide (Microzide) 12.5 mg PO DAILY [facility] Last Admin: 08/24/17 08:52 Dose: 12.5 mg Lactulose (Enulose) 20 gm PO DAILY PRN PRN Reason: Constipation Last Admin: 08/23/17 15:52 Dose: 20 gm Latanoprost (Xalatan Opht) 1 drop OU HS [facility] Last Admin: 08/23/17 21:07 Dose: 1 drop Lisinopril (Zestril) 10 mg PO DAILY [facility] Last Admin: 08/24/17 08:53 Dose: 10 mg Oxycodone HCl (Oxycontin Extended Release Tab) 10 mg PO Q12 [facility] Stop: 08/25/17 21:01 Last Admin: 08/24/17 08:59 Dose: 10 mg Oxycodone/Acetaminophen (Percocet 5/325 Mg Tab) 1 tab PO Q4 PRN PRN Reason: Pain, Moderate (4-10) Stop: 08/25/17 15:47 Last Admin: 08/23/17 13:35 Dose: 1 tab Tamsulosin HCl (Flomax) 0.4 mg PO HS [facility] Last Admin: 08/23/17 21:05 Dose: 0.4 mg - Labs Labs: 08/23/17 06:30 08/23/17 06:30 - Constitutional Appears: Well, No Acute Distress - Respiratory Exam Respiratory Exam: Clear to Ausculation Bilateral, NORMAL BREATHING PATTERN - Cardiovascular Exam Cardiovascular Exam: REGULAR RHYTHM, RRR - Extremities Exam Additional comments: RLE: Knee dressing C/D/I Calves soft and nontender b/l N/V intact distally +foot drop - present pre-operatively distal pulses wnl Assessment and Plan - Assessment and Plan (Free Text) Assessment: 71 yo M s/p RTKR POD#3 Plan: Pain control DVT ppx- start lovenox tmrw am PT/OT Continue current management Discussed with Dr. Adler
[2017-08-24] MEDS: Oxycodone/Acetaminophen 5/325 mg Tab PO PRN (15:55)
[2017-08-24] MEDS: Latanoprost 0.005% Opht SOUTION OU SCH (22:00)
[2017-08-25] MEDS: Docusate Sodium/Ferrous Fumara 1 TAB PO SCH ×2 (08:18→16:32)
[2017-08-25] MEDS: Enoxaparin 40 mg Syringe SC SCH (08:19)
[2017-08-25] MEDS: oxyCODONE 10 mg ER Tab (oxyCONTIN) PO SCH ×2 (08:22→21:06)
--- NOTE | 2017-08-25 10:30 | CP.PCM.PN ---
Subjective - Date & Time of Evaluation Date of Evaluation: 08/25/17 Time of Evaluation: 10:10 - Subjective Subjective: Has done morning excercises Had a restful night BP 120/70 mm Hg JVP flat, no rales, no gallop No calf tenderness On Lovenox for DVT prophylaxis Objective - Vital Signs/Intake and Output Vital Signs (last 24 hours): Temp Pulse Resp BP Pulse Ox 98.1 F 76 20 125/67 96 08/25/17 07:47 08/25/17 08:19 08/25/17 07:47 08/25/17 08:19 08/25/17 07:47 - Medications Medications: Current Medications Acetaminophen (Tylenol 325mg Tab) 325 mg PO Q4 PRN PRN Reason: Pain, Mild (1-3) Atorvastatin Calcium (Lipitor) 20 mg PO HS [facility] Last Admin: 08/24/17 21:34 Dose: 20 mg Celecoxib (Celebrex) 100 mg PO Q12 [facility] Last Admin: 08/25/17 08:18 Dose: 100 mg Docusate Sodium (Colace) 100 mg PO BID [facility] Last Admin: 08/25/17 08:18 Dose: 100 mg Docusate Sodium/Ferrous Fumarate (Kandi-Sequels 100 Mg -150 Mg) 1 tab PO BID [facility] Last Admin: 08/25/17 08:18 Dose: 1 tab Enoxaparin Sodium (Lovenox) 40 mg SC DAILY [facility] PRN Reason: Protocol Last Admin: 08/25/17 08:19 Dose: 40 mg Hydrochlorothiazide (Microzide) 12.5 mg PO DAILY [facility] Last Admin: 08/25/17 08:19 Dose: 12.5 mg Lactulose (Enulose) 20 gm PO DAILY PRN PRN Reason: Constipation Last Admin: 08/23/17 15:52 Dose: 20 gm Latanoprost (Xalatan Opht) 1 drop OU HS [facility] Last Admin: 08/24/17 22:00 Dose: 1 drop Lisinopril (Zestril) 10 mg PO DAILY [facility] Last Admin: 08/25/17 08:19 Dose: 10 mg Oxycodone HCl (Oxycontin Extended Release Tab) 10 mg PO Q12 [facility] Stop: 08/25/17 21:01 Last Admin: 08/25/17 08:22 Dose: 10 mg Oxycodone/Acetaminophen (Percocet 5/325 Mg Tab) 1 tab PO Q4 PRN PRN Reason: Pain, Moderate (4-10) Stop: 08/25/17 15:47 Last Admin: 08/24/17 15:55 Dose: 1 tab Tamsulosin HCl (Flomax) 0.4 mg PO HS [facility] Last Admin: 08/24/17 21:35 Dose: 0.4 mg - Labs Labs: 08/23/17 06:30 08/23/17 06:30
[2017-08-25] MEDS: Latanoprost 0.005% Opht SOUTION OU SCH (21:10)
[2017-08-26] MEDS: Docusate Sodium/Ferrous Fumara 1 TAB PO SCH ×2 (08:29→16:47)
[2017-08-26] MEDS: Enoxaparin 40 mg Syringe SC SCH (08:29)
[2017-08-26] MEDS: Oxycodone/Acetaminophen 5/325 mg Tab PO PRN ×2 (08:35→12:50)
[2017-08-26 09:30] LABS: HEMATOCRIT 28.1 % (35.0-51.0); MEAN CELL VOLUME 96.7 fl (80.0-94.0); MEAN CORPUSCULAR HEMOGLOBIN 33.2 pg (27.0-31.0); MEAN CORPUSCULAR HGB CONC 34.3 g/dL (33.0-37.0); RED CELL DISTRIBUTION WIDTH 12.9 % (11.5-14.5)
[2017-08-26 09:59] LABS: BLOOD UREA NITROGEN 15 mg/dl (9-20); CALCIUM 8.5 mg/dL (8.4-10.2); CARBON DIOXIDE 30 mmol/L (22-30); CHLORIDE 103 mmol/L (98-107); GFR AFRICAN-AMERICAN > 60; GLUCOSE,RANDOM 139 mg/dL (75-110); POTASSIUM 3.9 MMOL/L (3.6-5.0); SODIUM 143 mmol/l (132-148)
[2017-08-26] MEDS: Pantoprazole 40 mg EC Tab PO SCH (16:48)
[2017-08-26] MEDS: oxyCODONE 10 mg ER Tab (oxyCONTIN) PO SCH (21:05)
[2017-08-26] MEDS: Latanoprost 0.005% Opht SOUTION OU SCH (21:07)
[2017-08-27] MEDS: oxyCODONE 10 mg ER Tab (oxyCONTIN) PO SCH ×2 (09:21→22:05)
[2017-08-27] MEDS: Enoxaparin 40 mg Syringe SC SCH (09:23)
[2017-08-27] MEDS: Docusate Sodium/Ferrous Fumara 1 TAB PO SCH ×2 (09:25→17:13)
[2017-08-27] MEDS: Pantoprazole 40 mg EC Tab PO SCH (09:25)
--- NOTE | 2017-08-27 15:05 | CP.PCM.PN ---
Subjective - Date & Time of Evaluation Date of Evaluation: 08/27/17 Time of Evaluation: 11:00 - Subjective Subjective: Pt seen and examined. Claimed he was feeling better and do not need the pain medication most of the time Objective - Vital Signs/Intake and Output Vital Signs (last 24 hours): Temp Pulse Resp BP Pulse Ox 98.2 F 75 20 139/78 98 08/27/17 08:19 08/27/17 09:23 08/27/17 08:19 08/27/17 09:23 08/27/17 08:19 - Medications Medications: Current Medications Acetaminophen (Tylenol 325mg Tab) 325 mg PO Q4 PRN PRN Reason: Pain, Mild (1-3) Atorvastatin Calcium (Lipitor) 20 mg PO HS [facility] Last Admin: 08/26/17 21:06 Dose: 20 mg Celecoxib (Celebrex) 100 mg PO Q12 [facility] Last Admin: 08/27/17 09:25 Dose: 100 mg Docusate Sodium (Colace) 100 mg PO BID [facility] Last Admin: 08/27/17 09:25 Dose: 100 mg Docusate Sodium/Ferrous Fumarate (Kandi-Sequels 100 Mg -150 Mg) 1 tab PO BID [facility] Last Admin: 08/27/17 09:25 Dose: 1 tab Enoxaparin Sodium (Lovenox) 40 mg SC DAILY [facility] PRN Reason: Protocol Last Admin: 08/27/17 09:23 Dose: 40 mg Hydrochlorothiazide (Microzide) 12.5 mg PO DAILY [facility] Last Admin: 08/27/17 09:26 Dose: 12.5 mg Hydromorphone HCl (Dilaudid) 2 mg PO Q4 PRN PRN Reason: Pain, severe (8-10) Lactulose (Enulose) 20 gm PO DAILY PRN PRN Reason: Constipation Last Admin: 08/23/17 15:52 Dose: 20 gm Latanoprost (Xalatan Opht) 1 drop OU HS [facility] Last Admin: 08/26/17 21:07 Dose: 1 drop Lisinopril (Zestril) 10 mg PO DAILY [facility] Last Admin: 08/27/17 09:23 Dose: 10 mg Oxycodone HCl (Oxycontin Extended Release Tab) 10 mg PO Q12 [facility] Stop: 08/29/17 21:01 Last Admin: 08/27/17 09:21 Dose: 10 mg Oxycodone/Acetaminophen (Percocet 5/325 Mg Tab) 1 tab PO Q4 PRN PRN Reason: Pain, moderate (4-7) Stop: 08/28/17 19:45 Last Admin: 08/26/17 12:50 Dose: 1 tab Pantoprazole Sodium (Protonix Ec Tab) 40 mg PO DAILY [facility] Last Admin: 08/27/17 09:25 Dose: 40 mg Tamsulosin HCl (Flomax) 0.4 mg PO HS [facility] Last Admin: 08/26/17 21:06 Dose: 0.4 mg - Labs Labs: 08/26/17 09:00 08/26/17 09:00 - Constitutional Appears: No Acute Distress - Head Exam Head Exam: ATRAUMATIC - Eye Exam Eye Exam: absent: Scleral icterus - ENT Exam ENT Exam: Mucous Membranes Moist - Neck Exam Neck Exam: absent: Meningismus - Respiratory Exam Respiratory Exam: absent: Rhonchi, Wheezes, Respiratory Distress - Cardiovascular Exam Cardiovascular Exam: REGULAR RHYTHM, +S1, +S2 - GI/Abdominal Exam GI & Abdominal Exam: Soft. absent: Tenderness - Rectal Exam Rectal Exam: Deferred - Neurological Exam Neurological Exam: Alert, Oriented x3 - Psychiatric Exam Psychiatric exam: Normal Affect - Skin Skin Exam: Dry, Intact Assessment and Plan - Assessment and Plan (Free Text) Assessment: 71 yo male with history of CAD, HLD, HTN and previous AFib had right TKR on 08/28 after failing conservative management of osteoarthritis of the right knee. Patient did well with surgery and had started PT on post op day 1 without any problem. 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 (1) Status post total knee replacement, right pain well controlled continue PT/OT (2) Hypertension BP stable. continue Lisinopril 10mg PO daily (3) HLD (hyperlipidemia) continue Atorvastatin (4) Atrial fibrillation presently in sinus with normal rate. no recurrence since 2014 (5) DVT Prophylaxis Lovenox 40mg SC daily
[2017-08-27] MEDS: Latanoprost 0.005% Opht SOUTION OU SCH (22:07)
[2017-08-28] MEDS: oxyCODONE 10 mg ER Tab (oxyCONTIN) PO SCH ×2 (09:10→21:01)
[2017-08-28] MEDS: Pantoprazole 40 mg EC Tab PO SCH (09:13)
[2017-08-28] MEDS: Docusate Sodium/Ferrous Fumara 1 TAB PO SCH ×2 (09:14→17:26)
[2017-08-28] MEDS: Enoxaparin 40 mg Syringe SC SCH (09:15)
[2017-08-28] MEDS: Oxycodone/Acetaminophen 5/325 mg Tab PO PRN (12:46)
--- NOTE | 2017-08-28 13:11 | PSY.TMCNF ---
Nursing - Vital Signs Vital Signs (Last 8 hours): Vital Signs 08/28/17 08/28/17 08/28/17 08:03 09:10 09:13 Temperature 97.9 F 97.9 F Pulse Rate 61 61 61 Respiratory 20 20 Rate Blood Pressure 147/75 147/75 147/75 O2 Sat by Pulse 98 Oximetry Pain: 5 - Precautions: Precautions: Fall Prevention - Medications/Other Issues Comment: - CPM discontinued due to c/o sciatica pain with CPM use. - May use immobilizer if pt will sleep on his side per ortho MD - Consults Comment: Dr. Giron, Dr. Cee Beck - Skin Incision Site: right knee i/l Dressing Status: Clean, Dry, Intact Incision: Healing Well, Danyelle Intact, Edematous, No Drainage Noted Incision Line Treatment: ELIEZER - Toileting Toileting: Modified Independent - Bladder Management Bladder Pattern: Normal Voiding Method: Toilet, Urinal Bladder Management: Modified Independent Frequency of Accidents: 0 - Bowel Management Bowel Pattern: Normal Bowel Management: Modified Independent Frequency of Accidents: 0 - Transfers Transfers: Supervision - ADL's ADL's: Supervision - Pain Management Comments: On Oxycontin q12h / Percocet PRN breakthrough pain - Patient/Family Teaching Comments: Care post TKR and safety precautions - Goals/Time Frame Comments: Per multidisciplinary care plans and goals - Provider Provider: Sanjana HARDINN RN CRRN Physical Therapy - Bed Mobility Bed Mobility: Verbal Cues, Contact Guard Comment: incr'd assisted needed for bed mob secondary to pain and ms soreness. (Previous notes pt required CS for bed mob) - Transfers Sit to Stand: Supervision, Verbal Cues - Ambulation Level of Assistance: Supervision, Verbal Cues, Contact Guard Distance (ft.): 175 Assistive Devices: Rolling Walker - Stair Negotiation Stairs: Level of Assistance: Verbal Cues, Contact Guard Number of Stairs: 11 Stairs: Assistive Devices: Left Handrail, Right Handrail - Standing Balance Static Stand: Supervision Dynamic Stand: Contact Guard Assist - Pain Management Techniques: Medication, Ice, Position Change, Distraction, Inactivity - Insight/Carryover Insight/Carryover: Good - Patient/Family Education Comment: compensatory strategies, AE/DME, fall prevention, role of OT/rehab - Assessment/Plan Assessment: PT is a 71 year old male with recent R TKR, pt is cognitively intact and motivated to return home at highest level of independence. Pt currently requiring S with transfers and MIN A with ADLs, recommend continued OT services to maximize independence with ADLs and functional mobility. - Goals Timeframe: 10 days Goals: MOD I UE dressing. MOD I LE dressing. MOD I toileting. MOD I toilet txfer. MOD I bathing. S tub txfer - Provider Therapist: Carri Pinto PT License Number: [id number] Occupational Therapy - Arousal/Attention/Orientation Patient Orientation: Person, Place, Time, Appropriate to Age, Appropriate to Situation - ADL/IADL Self Feeding: Independent Grooming: Independent Dressing-Upper Extremity: Set-up Help Dressing-Lower Extremity: Verbal Cues, Set-up Help, Minimal Assistance Comment: Pt uses adaptive devices for lower body dressing - Sitting Balance Static Sitting: Independent without upper extremity support Dynamic Sitting: Reaches across midline, Reaches out of base of support, Reaches within base of support Comment: unsupported at edge of bed - Transfers Wheelchair to Bed Transfers: Supervision, Verbal Cues, Set-up Help Toilet Transfers: Supervision, Verbal Cues, Set-up Help Comment: commode adjusted and placed over toilet with splash guard - Upper Extremity Status Right Upper Extremity Comment: ROM WFL MMT 5/5 Left Upper Extremity Comment: ROM WFL MMT 5/5 - Pain Alleviating Techniques: Medication, Ice, Position Change, Distraction, Inactivity - Insight/Carryover Insight/Carryover: Good - Patient/Family Education Comment: compensatory strategies, AE/DME, fall prevention, role of OT/rehab - Assessment/Plan Assessment: PT is a 71 year old male with recent R TKR, pt is cognitively intact and motivated to return home at highest level of independence. Pt currently requiring S with transfers and MIN A with ADLs, recommend continued OT services to maximize independence with ADLs and functional mobility. - Goals Timeframe: 10 days Goals: MOD I UE dressing. MOD I LE dressing. MOD I toileting. MOD I toilet txfer. MOD I bathing. S tub txfer - Provider Therapist: Amina Neal License Number: [id number] Speech Therapy - Plan Assessment: PT is a 71 year old male with recent R TKR, pt is cognitively intact and motivated to return home at highest level of independence. Pt currently requiring S with transfers and MIN A with ADLs, recommend continued OT services to maximize independence with ADLs and functional mobility. Recreational Therapy - Participation Participation: Participates in Individual and/or Group Sessions, Monitors His/ Her Own Leisure Time - Attendance Attendance: 3-5 times per week - Activities Leisure Activities: Cards and Games - Socialization Level of Socialization: Initiates/interacts freely with care givers and peer - Diversional Time Diversional Time: has tablet in room, socializing - Assessment Assessment/Plan: PT is a 71 year old male with recent R TKR, pt is cognitively intact and motivated to return home at highest level of independence. Pt currently requiring S with transfers and MIN A with ADLs, recommend continued OT services to maximize independence with ADLs and functional mobility. - Provider Therapist: Monae Blancas, INHALATION THERAPIST #[id number] Nutrition - Current Diet Current Diet/ Supplement/ Feedings: Diet order: Heart healthy: 2 gram Na diet - Appetite Percent Meal Consumed: 75-100% - Comments Comments: Care post TKR and safety precautions - Assessment/Goals/Time Frame Assessment/Goals/Time Frame: - CPM discontinued due to c/o sciatica pain with CPM use. - May use immobilizer if pt will sleep on his side per ortho MD - Provider Provider: Brianna Kathleen RD Case Management - Discharge Plan Discharge Plan: Home with significant other/family Rehabilitation Plan - Treatment Plan Treatment Plan: Physical Therapy, Occupational Therapy, Dietary, Pain Management , Wound Care, Patient/Family Education - Discharge Plan Estimated Date of Discharge: 08/31/17 Discharge to: Home
--- NOTE | 2017-08-28 13:35 | CP.PCM.PN ---
Subjective - Date & Time of Evaluation Date of Evaluation: 08/28/17 Time of Evaluation: 13:34 - Subjective Subjective: Patient seen in room doing well notes some heaviness in the right thigh rhonda cdi continue current care set for d/c home 08/31/17 continue current care Objective - Vital Signs/Intake and Output Vital Signs (last 24 hours): Temp Pulse Resp BP Pulse Ox 97.9 F 61 20 147/75 98 08/28/17 09:10 08/28/17 09:13 08/28/17 09:10 08/28/17 09:13 08/28/17 08:03 - Medications Medications: Current Medications Acetaminophen (Tylenol 325mg Tab) 325 mg PO Q4 PRN PRN Reason: Pain, Mild (1-3) Atorvastatin Calcium (Lipitor) 20 mg PO HS [facility] Last Admin: 08/27/17 22:07 Dose: 20 mg Celecoxib (Celebrex) 100 mg PO Q12 [facility] Last Admin: 08/28/17 09:15 Dose: 100 mg Docusate Sodium (Colace) 100 mg PO BID [facility] Last Admin: 08/28/17 09:14 Dose: 100 mg Docusate Sodium/Ferrous Fumarate (Kandi-Sequels 100 Mg -150 Mg) 1 tab PO BID [facility] Last Admin: 08/28/17 09:14 Dose: 1 tab Hydrochlorothiazide (Microzide) 12.5 mg PO DAILY [facility] Last Admin: 08/28/17 09:14 Dose: 12.5 mg Hydromorphone HCl (Dilaudid) 2 mg PO Q4 PRN PRN Reason: Pain, severe (8-10) Lactulose (Enulose) 20 gm PO DAILY PRN PRN Reason: Constipation Last Admin: 08/23/17 15:52 Dose: 20 gm Latanoprost (Xalatan Opht) 1 drop OU HS [facility] Last Admin: 08/27/17 22:07 Dose: 1 drop Lisinopril (Zestril) 10 mg PO DAILY [facility] Last Admin: 08/28/17 09:13 Dose: 10 mg Oxycodone HCl (Oxycontin Extended Release Tab) 10 mg PO Q12 [facility] Stop: 08/29/17 21:01 Last Admin: 08/28/17 09:10 Dose: 10 mg Oxycodone/Acetaminophen (Percocet 5/325 Mg Tab) 1 tab PO Q4 PRN PRN Reason: Pain, moderate (4-7) Stop: 08/28/17 19:45 Last Admin: 08/28/17 12:46 Dose: 1 tab Pantoprazole Sodium (Protonix Ec Tab) 40 mg PO DAILY [facility] Last Admin: 08/28/17 09:13 Dose: 40 mg Tamsulosin HCl (Flomax) 0.4 mg PO HS [facility] Last Admin: 08/27/17 22:07 Dose: 0.4 mg - Labs Labs: 08/26/17 09:00 08/26/17 09:00
[2017-08-28] MEDS: Latanoprost 0.005% Opht SOUTION OU SCH (21:11)
[2017-08-29 05:59] LABS: HEMATOCRIT 28.2 % (35.0-51.0); MEAN CELL VOLUME 97.9 fl (80.0-94.0); MEAN CORPUSCULAR HEMOGLOBIN 32.8 pg (27.0-31.0); MEAN CORPUSCULAR HGB CONC 33.5 g/dL (33.0-37.0); RED CELL DISTRIBUTION WIDTH 13.2 % (11.5-14.5); WHITE BLOOD COUNT 5.2 K/uL (4.8-10.8)
[2017-08-29 06:31] LABS: BLOOD UREA NITROGEN 21 mg/dl (9-20); CALCIUM 8.8 mg/dL (8.4-10.2); CARBON DIOXIDE 33 mmol/L (22-30); CHLORIDE 104 mmol/L (98-107); GFR AFRICAN-AMERICAN > 60; GLUCOSE,RANDOM 115 mg/dL (75-110); POTASSIUM 4.3 MMOL/L (3.6-5.0); SODIUM 143 mmol/l (132-148)
[2017-08-29] MEDS: Oxycodone/Acetaminophen 5/325 mg Tab PO PRN ×2 (07:34→12:56)
[2017-08-29] MEDS: oxyCODONE 10 mg ER Tab (oxyCONTIN) PO SCH ×2 (08:43→21:24)
[2017-08-29] MEDS: Docusate Sodium/Ferrous Fumara 1 TAB PO SCH ×2 (08:47→17:24)
[2017-08-29] MEDS: Enoxaparin 40 mg Syringe SC SCH (08:47)
[2017-08-29] MEDS: Pantoprazole 40 mg EC Tab PO SCH (08:48)
--- NOTE | 2017-08-29 17:04 | CP.PCM.PN ---
Subjective - Date & Time of Evaluation Date of Evaluation: 08/29/17 Time of Evaluation: 14:00 - Subjective Subjective: Pt seen and examined. Pain bearable except during therapy. Objective - Vital Signs/Intake and Output Vital Signs (last 24 hours): Temp Pulse Resp BP Pulse Ox 98.4 F 99 H 20 148/73 100 08/29/17 08:27 08/29/17 08:46 08/29/17 08:27 08/29/17 08:46 08/29/17 08:27 - Medications Medications: Current Medications Acetaminophen (Tylenol 325mg Tab) 325 mg PO Q4 PRN PRN Reason: Pain, Mild (1-3) Atorvastatin Calcium (Lipitor) 20 mg PO HS [facility] Last Admin: 08/28/17 21:07 Dose: 20 mg Celecoxib (Celebrex) 100 mg PO Q12 [facility] Last Admin: 08/29/17 08:45 Dose: 100 mg Docusate Sodium (Colace) 100 mg PO BID [facility] Last Admin: 08/29/17 08:47 Dose: 100 mg Docusate Sodium/Ferrous Fumarate (Kandi-Sequels 100 Mg -150 Mg) 1 tab PO BID [facility] Last Admin: 08/29/17 08:47 Dose: 1 tab Enoxaparin Sodium (Lovenox) 40 mg SC DAILY [facility] PRN Reason: Protocol Last Admin: 08/29/17 08:47 Dose: 40 mg Hydrochlorothiazide (Microzide) 12.5 mg PO DAILY [facility] Last Admin: 08/29/17 08:48 Dose: 12.5 mg Hydromorphone HCl (Dilaudid) 2 mg PO Q4 PRN PRN Reason: Pain, severe (8-10) Lactulose (Enulose) 20 gm PO DAILY PRN PRN Reason: Constipation Last Admin: 08/23/17 15:52 Dose: 20 gm Latanoprost (Xalatan Opht) 1 drop OU HS [facility] Last Admin: 08/28/17 21:11 Dose: 1 drop Lisinopril (Zestril) 10 mg PO DAILY [facility] Last Admin: 08/29/17 08:46 Dose: 10 mg Oxycodone HCl (Oxycontin Extended Release Tab) 10 mg PO Q12 [facility] Stop: 09/01/17 21:01 Last Admin: 08/29/17 08:43 Dose: 10 mg Oxycodone/Acetaminophen (Percocet 5/325 Mg Tab) 1 tab PO Q4 PRN PRN Reason: Pain, moderate (4-7) Stop: 08/31/17 19:45 Last Admin: 08/29/17 12:56 Dose: 1 tab Pantoprazole Sodium (Protonix Ec Tab) 40 mg PO DAILY [facility] Last Admin: 08/29/17 08:48 Dose: 40 mg Tamsulosin HCl (Flomax) 0.4 mg PO HS [facility] Last Admin: 08/28/17 21:07 Dose: 0.4 mg - Labs Labs: 08/29/17 05:45 08/29/17 05:45 - Constitutional Appears: No Acute Distress - Head Exam Head Exam: ATRAUMATIC - Eye Exam Eye Exam: absent: Scleral icterus - ENT Exam ENT Exam: Mucous Membranes Moist - Neck Exam Neck Exam: absent: Meningismus - Respiratory Exam Respiratory Exam: absent: Rhonchi, Wheezes, Respiratory Distress - Cardiovascular Exam Cardiovascular Exam: REGULAR RHYTHM, +S1, +S2 - GI/Abdominal Exam GI & Abdominal Exam: Soft. absent: Tenderness - Rectal Exam Rectal Exam: Deferred - Extremities Exam Extremities Exam: Joint Swelling (right knee slight swollen but no sign of infection, rhonda intact). absent: Full ROM (right knee) - Neurological Exam Neurological Exam: Alert, Oriented x3 - Psychiatric Exam Psychiatric exam: Normal Affect - Skin Skin Exam: Dry, Intact Assessment and Plan - Assessment and Plan (Free Text) Assessment: 71 yo male with history of CAD, HLD, HTN and previous AFib had right TKR on 08/28 after failing conservative management of osteoarthritis of the right knee. Patient did well with surgery and had started PT on post op day 1 without any problem. 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 (1) Status post total knee replacement, right pain well controlled doing well with PT/OT (2) Hypertension BP stable. continue Lisinopril 10mg PO daily (3) HLD (hyperlipidemia) continue Atorvastatin (4) Atrial fibrillation presently in sinus with normal rate. no recurrence since 2014 (5) DVT Prophylaxis Lovenox 40mg SC daily
--- NOTE | 2017-08-29 17:11 | CP.PCM.PN ---
Subjective - Date & Time of Evaluation Date of Evaluation: 08/29/17 Time of Evaluation: 17:10 - Subjective Subjective: Patient seen in room with present rhonda CDI discussed with Dr Adler and wants to leave rhonda in the standard 14 days so he will need to follow up as an outpatient pain is controlled he is 105 degrees ROM continue current care Objective - Vital Signs/Intake and Output Vital Signs (last 24 hours): Temp Pulse Resp BP Pulse Ox 98.4 F 99 H 20 148/73 100 08/29/17 08:27 08/29/17 08:46 08/29/17 08:27 08/29/17 08:46 08/29/17 08:27 - Medications Medications: Current Medications Acetaminophen (Tylenol 325mg Tab) 325 mg PO Q4 PRN PRN Reason: Pain, Mild (1-3) Atorvastatin Calcium (Lipitor) 20 mg PO HS [facility] Last Admin: 08/28/17 21:07 Dose: 20 mg Celecoxib (Celebrex) 100 mg PO Q12 [facility] Last Admin: 08/29/17 08:45 Dose: 100 mg Docusate Sodium (Colace) 100 mg PO BID [facility] Last Admin: 08/29/17 08:47 Dose: 100 mg Docusate Sodium/Ferrous Fumarate (Kandi-Sequels 100 Mg -150 Mg) 1 tab PO BID [facility] Last Admin: 08/29/17 08:47 Dose: 1 tab Enoxaparin Sodium (Lovenox) 40 mg SC DAILY [facility] PRN Reason: Protocol Last Admin: 08/29/17 08:47 Dose: 40 mg Hydrochlorothiazide (Microzide) 12.5 mg PO DAILY [facility] Last Admin: 08/29/17 08:48 Dose: 12.5 mg Hydromorphone HCl (Dilaudid) 2 mg PO Q4 PRN PRN Reason: Pain, severe (8-10) Lactulose (Enulose) 20 gm PO DAILY PRN PRN Reason: Constipation Last Admin: 08/23/17 15:52 Dose: 20 gm Latanoprost (Xalatan Opht) 1 drop OU HS [facility] Last Admin: 08/28/17 21:11 Dose: 1 drop Lisinopril (Zestril) 10 mg PO DAILY [facility] Last Admin: 08/29/17 08:46 Dose: 10 mg Oxycodone HCl (Oxycontin Extended Release Tab) 10 mg PO Q12 [facility] Stop: 09/01/17 21:01 Last Admin: 08/29/17 08:43 Dose: 10 mg Oxycodone/Acetaminophen (Percocet 5/325 Mg Tab) 1 tab PO Q4 PRN PRN Reason: Pain, moderate (4-7) Stop: 08/31/17 19:45 Last Admin: 08/29/17 12:56 Dose: 1 tab Pantoprazole Sodium (Protonix Ec Tab) 40 mg PO DAILY [facility] Last Admin: 08/29/17 08:48 Dose: 40 mg Tamsulosin HCl (Flomax) 0.4 mg PO HS [facility] Last Admin: 08/28/17 21:07 Dose: 0.4 mg - Labs Labs: 08/29/17 05:45 08/29/17 05:45
[2017-08-29] MEDS: Latanoprost 0.005% Opht SOUTION OU SCH (21:27)
[2017-08-30] MEDS: Oxycodone/Acetaminophen 5/325 mg Tab PO PRN (07:31)
[2017-08-30] MEDS: Pantoprazole 40 mg EC Tab PO SCH (08:28)
[2017-08-30] MEDS: oxyCODONE 10 mg ER Tab (oxyCONTIN) PO SCH ×2 (08:28→20:44)
[2017-08-30] MEDS: Docusate Sodium/Ferrous Fumara 1 TAB PO SCH ×2 (08:31→16:41)
[2017-08-30] MEDS: Enoxaparin 40 mg Syringe SC SCH (08:32)
--- NOTE | 2017-08-30 18:18 | CP.PCM.PN ---
Subjective - Date & Time of Evaluation Date of Evaluation: 08/30/17 Time of Evaluation: 18:17 - Subjective Subjective: patient seen in room continues to do well and benefit from acute inpatient rehab ROM around 105 I have written for scripts pending d/c tomorrow he is very grateful for his time here incision cdi Objective - Vital Signs/Intake and Output Vital Signs (last 24 hours): Temp Pulse Resp BP Pulse Ox 98.1 F 91 H 18 132/74 97 08/30/17 08:43 08/30/17 17:00 08/30/17 17:00 08/30/17 17:00 08/30/17 17:00 - Medications Medications: Current Medications Acetaminophen (Tylenol 325mg Tab) 325 mg PO Q4 PRN PRN Reason: Pain, Mild (1-3) Atorvastatin Calcium (Lipitor) 20 mg PO HS [facility] Last Admin: 08/29/17 21:26 Dose: 20 mg Celecoxib (Celebrex) 100 mg PO Q12 [facility] Last Admin: 08/30/17 08:32 Dose: 100 mg Docusate Sodium (Colace) 100 mg PO BID [facility] Last Admin: 08/30/17 16:41 Dose: 100 mg Docusate Sodium/Ferrous Fumarate (Kandi-Sequels 100 Mg -150 Mg) 1 tab PO BID [facility] Last Admin: 08/30/17 16:41 Dose: 1 tab Enoxaparin Sodium (Lovenox) 40 mg SC DAILY [facility] PRN Reason: Protocol Last Admin: 08/30/17 08:32 Dose: 40 mg Hydrochlorothiazide (Microzide) 12.5 mg PO DAILY [facility] Last Admin: 08/30/17 08:31 Dose: 12.5 mg Hydromorphone HCl (Dilaudid) 2 mg PO Q4 PRN PRN Reason: Pain, severe (8-10) Lactulose (Enulose) 20 gm PO DAILY PRN PRN Reason: Constipation Last Admin: 08/23/17 15:52 Dose: 20 gm Latanoprost (Xalatan Opht) 1 drop OU HS [facility] Last Admin: 08/29/17 21:27 Dose: 1 drop Lisinopril (Zestril) 10 mg PO DAILY [facility] Last Admin: 08/30/17 08:33 Dose: 10 mg Oxycodone HCl (Oxycontin Extended Release Tab) 10 mg PO Q12 [facility] Stop: 09/01/17 21:01 Last Admin: 08/30/17 08:28 Dose: 10 mg Oxycodone/Acetaminophen (Percocet 5/325 Mg Tab) 1 tab PO Q4 PRN PRN Reason: Pain, moderate (4-7) Stop: 08/31/17 19:45 Last Admin: 08/30/17 07:31 Dose: 1 tab Pantoprazole Sodium (Protonix Ec Tab) 40 mg PO DAILY [facility] Last Admin: 08/30/17 08:28 Dose: 40 mg Tamsulosin HCl (Flomax) 0.4 mg PO HS [facility] Last Admin: 08/29/17 21:26 Dose: 0.4 mg - Labs Labs: 08/29/17 05:45 08/29/17 05:45
[2017-08-30] MEDS: Latanoprost 0.005% Opht SOUTION OU SCH (21:18)
[2017-08-31] MEDS: Enoxaparin 40 mg Syringe SC SCH (08:40)
[2017-08-31] MEDS: oxyCODONE 10 mg ER Tab (oxyCONTIN) PO SCH (08:40)
[2017-08-31] MEDS: Pantoprazole 40 mg EC Tab PO SCH (08:43)
[2017-08-31 08:52] VITALS: BP 116/55; PULSE 77
--- NOTE | 2017-08-31 10:13 | CP.PCM.DIS ---
Provider - Provider Date of Admission: 08/22/17 15:17 Attending physician: Joseph Duenas MD Primary care physician: Jeramie Beck MD Time Spent in preparation of Discharge (in minutes): 30 Hospital Course - Lab Results Lab Results: Most Recent Lab Values WBC 5.2 K/uL (4.8-10.8) 08/29/17 05:45 RBC 2.88 Mil/uL (4.40-5.90) L 08/29/17 05:45 Hgb 9.4 g/dL (12.0-18.0) L 08/29/17 05:45 Hct 28.2 % (35.0-51.0) L 08/29/17 05:45 MCV 97.9 fl (80.0-94.0) H 08/29/17 05:45 MCH 32.8 pg (27.0-31.0) H 08/29/17 05:45 MCHC 33.5 g/dL (33.0-37.0) 08/29/17 05:45 RDW 13.2 % (11.5-14.5) 08/29/17 05:45 Plt Count 279 K/uL (130-400) 08/29/17 05:45 MPV 7.9 fl (7.2-11.7) 08/23/17 06:30 Neut % (Auto) 51.0 % (50.0-75.0) 08/23/17 06:30 Lymph % (Auto) 30.9 % (20.0-40.0) 08/23/17 06:30 Wells % (Auto) 13.0 % (0.0-10.0) H 08/23/17 06:30 Eos % (Auto) 4.5 % (0.0-4.0) H 08/23/17 06:30 Baso % (Auto) 0.6 % (0.0-2.0) 08/23/17 06:30 Neut # 3.2 K/uL (1.8-7.0) 08/23/17 06:30 Lymph # 2.0 K/uL (1.0-4.3) 08/23/17 06:30 Wells # 0.8 K/uL (0.0-0.8) 08/23/17 06:30 Eos # 0.3 K/uL (0.0-0.7) 08/23/17 06:30 Baso # 0.0 K/uL (0.0-0.2) 08/23/17 06:30 Sodium 143 mmol/l (132-148) 08/29/17 05:45 Potassium 4.3 MMOL/L (3.6-5.0) 08/29/17 05:45 Chloride 104 mmol/L (98-107) 08/29/17 05:45 Carbon Dioxide 33 mmol/L (22-30) H 08/29/17 05:45 Anion Gap 10 (10-20) 08/29/17 05:45 BUN 21 mg/dl (9-20) H 08/29/17 05:45 Creatinine 0.9 mg/dL (0.8-1.5) 08/29/17 05:45 Est GFR ( Amer) > 60 08/29/17 05:45 Est GFR (Non-Af Amer) > 60 08/29/17 05:45 Random Glucose 115 mg/dL (75-110) H 08/29/17 05:45 Calcium 8.8 mg/dL (8.4-10.2) 08/29/17 05:45 - Hospital Course Hospital Course: 71 yo male with history of CAD, HLD, HTN and previous AFib had right TKR on 08/28 after failing conservative management of osteoarthritis of the right knee. Patient did well with surgery and had started PT on post op day 1 without any problem. 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 stable to be discharged home [facility] follow up with pcp and dr. camilo. (1) Status post total knee replacement, right pain well controlled doing well with PT/OT (2) Hypertension BP stable. continue Lisinopril 10mg PO daily (3) HLD (hyperlipidemia) continue Atorvastatin (4) Atrial fibrillation presently in sinus with normal rate. no recurrence since 2015 (5) DVT Prophylaxis Lovenox 40mg SC daily Discharge Exam - Head Exam Head Exam: ATRAUMATIC, NORMOCEPHALIC - Eye Exam Eye Exam: EOMI, Normal appearance, PERRL - ENT Exam ENT Exam: Mucous Membranes Moist, Normal Oropharynx - Neck Exam Neck exam: Full Rom, Normal Inspection - Respiratory Exam Respiratory Exam: Clear to PA & Lateral, NORMAL BREATHING PATTERN - Cardiovascular Exam Cardiovascular Exam: RRR, +S1, +S2 - GI/Abdominal Exam GI & Abdominal Exam: Normal Bowel Sounds, Soft. absent: Organomegaly, Pulsatile Mass, Tenderness - Extremities Exam Extremities exam: normal capillary refill, pedal pulses present - Back Exam Back exam: absent: CVA tenderness (L), CVA tenderness (R) - Neurological Exam Neurological exam: Alert, Oriented x3 - Psychiatric Exam Psychiatric exam: Normal Affect, Normal Mood - Skin Skin Exam: Dry, Warm Discharge Plan - Discharge Medications Prescriptions: Aspirin [Aspirin EC] 325 mg PO Q12 #60 tablet. Atorvastatin [Lipitor] 20 mg PO HS #30 tab Bimatoprost [Lumigan] 5 ml BOTHEYES HS #60 drops Celecoxib [celeBREX] 100 mg PO Q12 #60 cap Ferrous Fumarate [Kandi-Sequel] 150 mg PO BID #60 tab hydroCHLOROthiazide [Microzide] 12.5 mg PO DAILY #30 cap Latanoprost 0.005% Opht [Xalatan Opht] 1 drop OU HS #1 bottle Lisinopril [Zestril] 10 mg PO DAILY #30 tab Tamsulosin [Flomax] 0.4 mg PO HS #30 cap - Follow Up Plan Condition: GOOD Disposition: HOME/ ROUTINE Referrals: Jeramie Beck MD [Primary Care Provider] -
[2017-08-31 12:41] VITALS: RESP 18; TEMP 97.9; O2SAT 97
[2017-08-31] MEDS: Docusate Sodium/Ferrous Fumara 1 TAB PO SCH (14:13)
--- NOTE | 2017-08-31 14:57 | CP.PCM.PN ---
Subjective - Date & Time of Evaluation Date of Evaluation: 08/31/17 Time of Evaluation: 14:56 - Subjective Subjective: Patient seen in room doing well right leg a little more swollen otherwise set and ready for d/c home today will follow up in my office Objective - Vital Signs/Intake and Output Vital Signs (last 24 hours): Temp Pulse Resp BP Pulse Ox 97.9 F 77 18 116/55 L 97 08/31/17 09:00 08/31/17 09:00 08/31/17 09:00 08/31/17 09:00 08/31/17 09:00 - Medications Medications: Current Medications Acetaminophen (Tylenol 325mg Tab) 325 mg PO Q4 PRN PRN Reason: Pain, Mild (1-3) Atorvastatin Calcium (Lipitor) 20 mg PO HS [facility] Last Admin: 08/30/17 21:17 Dose: 20 mg Celecoxib (Celebrex) 100 mg PO Q12 [facility] Last Admin: 08/31/17 08:41 Dose: 100 mg Docusate Sodium (Colace) 100 mg PO BID [facility] Last Admin: 08/31/17 08:41 Dose: 100 mg Docusate Sodium/Ferrous Fumarate (Kandi-Sequels 100 Mg -150 Mg) 1 tab PO BID [facility] Last Admin: 08/31/17 14:13 Dose: 1 tab Enoxaparin Sodium (Lovenox) 40 mg SC DAILY [facility] PRN Reason: Protocol Last Admin: 08/31/17 08:40 Dose: 40 mg Hydrochlorothiazide (Microzide) 12.5 mg PO DAILY [facility] Last Admin: 08/31/17 08:51 Dose: 12.5 mg Hydromorphone HCl (Dilaudid) 2 mg PO Q4 PRN PRN Reason: Pain, severe (8-10) Lactulose (Enulose) 20 gm PO DAILY PRN PRN Reason: Constipation Last Admin: 08/23/17 15:52 Dose: 20 gm Latanoprost (Xalatan Opht) 1 drop OU HS [facility] Last Admin: 08/30/17 21:18 Dose: 1 drop Lisinopril (Zestril) 10 mg PO DAILY [facility] Last Admin: 08/31/17 08:51 Dose: 10 mg Oxycodone HCl (Oxycontin Extended Release Tab) 10 mg PO Q12 [facility] Stop: 09/01/17 21:01 Last Admin: 08/31/17 08:40 Dose: 10 mg Oxycodone/Acetaminophen (Percocet 5/325 Mg Tab) 1 tab PO Q4 PRN PRN Reason: Pain, moderate (4-7) Stop: 08/31/17 19:45 Last Admin: 08/30/17 07:31 Dose: 1 tab Pantoprazole Sodium (Protonix Ec Tab) 40 mg PO DAILY [facility] Last Admin: 08/31/17 08:43 Dose: 40 mg Tamsulosin HCl (Flomax) 0.4 mg PO HS [facility] Last Admin: 08/30/17 21:17 Dose: 0.4 mg - Labs Labs: 08/29/17 05:45 08/29/17 05:45
== END 2017-08-31 16:05 | disposition home or self-care (01) | DRG 561 ==
PROC: F08Z1FZ Dressing Techniques Treatment using Assistive, Adaptive, Supportive or Protective Equipment (ICD-10-PCS; principal; 2017-08-22)
PROC: F07Z9FZ Gait Training/Functional Ambulation Treatment using Assistive, Adaptive, Supportive or Protective Equipment (ICD-10-PCS; 2017-08-22)
PROC: F07L6ZZ Therapeutic Exercise Treatment of Musculoskeletal System - Lower Back / Lower Extremity (ICD-10-PCS; 2017-08-22)
DX: Z47.1 Aftercare following joint replacement surgery (principal); I10 Essential (primary) hypertension; I25.10 Atherosclerotic heart disease of native coronary artery without angina pectoris; Z96.643 Presence of artificial hip joint, bilateral; Z96.651 Presence of right artificial knee joint; E78.5 Hyperlipidemia, unspecified; K59.00 Constipation, unspecified; E66.9 Obesity, unspecified; Z68.30 Body mass index [BMI] 30.0-30.9, adult

== ENCOUNTER 2018-08-27 06:02 | Inpatient (IN) | payer OTHER, MEDICARE ==
[2014-12-15 10:13] VITALS: PULSE 124
[2018-08-21 13:32] VITALS: BMI 29.8
[2018-08-27] MEDS ORDERED: Lactated Ringer's 1,000 ML IV ONE (07:00)
[2018-08-27 07:10] LABS: BASO % 0.8 % (0.0-2.0); EOS # 0.1 K/uL (0.0-0.7); HEMOGLOBIN 13.6 g/dL (12.0-18.0); LYMPH # 1.5 K/uL (1.0-4.3); LYMPH % 34.4 % (20.0-40.0); MEAN CELL VOLUME 96.6 fl (80.0-94.0); MEAN CORPUSCULAR HEMOGLOBIN 32.6 pg (27.0-31.0); MEAN CORPUSCULAR HGB CONC 33.7 g/dL (33.0-37.0); MEAN PLATELET VOLUME 8.2 fl (7.2-11.7); MONO # 0.5 K/uL (0.0-0.8); NEUT # 2.3 K/uL (1.8-7.0); NEUT % 51.8 % (50.0-75.0); NRBC % 0.1 % (0.0-0.0); RBC 4.17 Mil/uL (4.40-5.90); RED CELL DISTRIBUTION WIDTH 13.4 % (11.5-14.5); WHITE BLOOD COUNT 4.5 K/uL (4.8-10.8)
[2018-08-27] MEDS ORDERED: Lidocaine 4% (Laryng-O-Jet) Kit MM ONE (07:15)
[2018-08-27] MEDS ORDERED: Propofol 10 mg/ml Inj (20 ML) ONE (07:15)
[2018-08-27] MEDS ORDERED: Rocuronium 10 mg/ml (5 ml) ONE ×2 (07:15→08:28)
[2018-08-27] MEDS ORDERED: Midazolam 2 MG/2 ML VIAL ONE (07:15)
[2018-08-27] MEDS ORDERED: Succinylcholine 200 mg/10 ml Inj IV ONE (07:15)
[2018-08-27] MEDS ORDERED: Neostigmine 1:1000 (1 mg/ml) Inj ONE (07:16)
[2018-08-27] MEDS ORDERED: Lidocaine 1% 5ml Abboject ONE (07:16)
[2018-08-27] MEDS ORDERED: Phenylephrine 10 mg/ml Inj ONE (07:18)
[2018-08-27] MEDS ORDERED: Absorbable Gelatin Sponge Size 12-7 ONE (07:23)
[2018-08-27] MEDS ORDERED: Sodium Chloride 0.9% 20 ML IV ONE (07:23)
[2018-08-27] MEDS ORDERED: Thrombin Topical 5,000 Int Units Spray Kit ONE (07:23)
[2018-08-27] MEDS ORDERED: ePHEDrine 50 mg/ml Inj ONE (08:19)
[2018-08-27] MEDS: Bupivacaine HCl 0.5% PF (30 ml) Inj ONE ×2 (09:00→09:20)
[2018-08-27] MEDS: EPINEPHrine 1 mg/ml (1:1000) Inj ONE ×2 (09:00→09:20)
[2018-08-27] MEDS: Morphine 1 mg/ml preservative-free Inj(Duramorph) ONE ×2 (09:00→09:20)
[2018-08-27] MEDS ORDERED: Sodium Chloride 0.9% 1,000 ML IV ONE (09:08)
[2018-08-27] MEDS ORDERED: Bupivacaine HCl 0.5% PF (30 ml) Inj ONE (09:22)
[2018-08-27] MEDS ORDERED: Lactated Ringer's 1,000 ML IV SCH (10:30)
--- NOTE | 2018-08-27 11:50 | PCM.SURG1 ---
Surgeon's Initial Post Op Note - Surgeon's Notes Surgeon: Neema Adler MD Hydrogen Treater: Jose C Mai PA-C; Caitlin Choe Type of Anesthesia: General Endo Pre-Operative Diagnosis: Left knee osteoarthritis Operative Findings: see op report Post-Operative Diagnosis: same as pre-op dx Operation Performed: L TKR Specimen/Specimens Removed: left knee bone and soft tissue Estimated Blood Loss: EBL {In ML}: 50 Date of Surgery/Procedure: 08/27/18 Time of Surgery/Procedure: 08:00
[2018-08-27] MEDS ORDERED: Oxycodone/Acetaminophen 5/325 mg Tab PO PRN (12:28)
--- NOTE | 2018-08-27 12:36 | CP.PCM.HP ---
History of Present Illness - History of Present Illness History of Present Illness: 72 yo male with pmhx of chronic Afib, HTN, BPH and HDL seen and evaluated in the PACU POD 0 s/p left total knee replacement. He has a hx of osteoarthritis of the left knee and had tried conservative therapy in the past which failed. Patient is mildly awake and alert, he tolerated well the procedure, states minimal pain. Due to anesthesia effects it is difficult to assess patient status and history. Chart and history reviewed. Patient denies N/V/F/C/SOB/CP. PMHx: Afib, HLD, HTN, BPH PSHx: Hip replacement x2, cataract, glaucoma and back surgery FH: Father due to pancreas and liver ca. Meds: see jacek SH: never smoker, denies drinking and illicit drug use All: NKDA Present on Admission - Present on Admission Any Indicators Present on Admission: No Review of Systems - Review of Systems All systems: reviewed and no additional remarkable complaints except (HPI) Past Patient History - Infectious Disease Hx of Infectious Diseases: None - Tetanus Immunizations Tetanus Immunization: Unknown - Past Medical History & Family History Past Medical History?: Yes - Past Social History Smoking Status: Former Smoker - CARDIAC Hx Cardiac Disorders: Yes (afib, htn) Hx Cardia Arrhythmia: Yes Hx Hypercholesterolemia: Yes Hx Hypertension: Yes Other/Comment: IRRAGULAR HEARTBEAT - PULMONARY Hx Respiratory Disorders: No - NEUROLOGICAL Hx Neurological Disorder: No - HEENT Hx HEENT Problems: Yes Hx Cataracts: Yes (both) Hx Glaucoma: Yes (both) Other/Comment: detached retina - RENAL Hx Chronic Kidney Disease: Yes Hx Kidney Stones: Yes (LEFT) - ENDOCRINE/METABOLIC Hx Endocrine Disorders: No - HEMATOLOGICAL/ONCOLOGICAL Hx Blood Disorders: Yes Hx AIDS: No Hx Anemia: Yes Hx Blood Transfusions: Yes (2014) Hx Blood Transfusion Reaction: No Hx Human Immunodeficiency Virus (HIV): No - INTEGUMENTARY Hx Dermatological Problems: Yes Hx Basil Cell: Yes - MUSCULOSKELETAL/RHEUMATOLOGICAL Hx Musculoskeletal Disorders: Yes Hx Arthritis: Yes (both knees) Hx Back Pain: Yes (spinal discectomy) Hx Degenerative Joint Disease: Yes Hx Falls: No Hx Osteoarthritis: Yes Hx Rheumatoid Arthritis: No Hx Spinal Stenosis: Yes Other/Comment: 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; dissectomy of L4-L5 - GASTROINTESTINAL Hx Gastrointestinal Disorders: Yes Hx Gall Bladder Disease: Yes (gallstones) - GENITOURINARY/GYNECOLOGICAL Hx Genitourinary Disorders: No Other/Comment: BPH - PSYCHIATRIC Hx Psychophysiologic Disorder: No Hx Emotional Abuse: No Hx Physical Abuse: No Hx Substance Use: No - SURGICAL HISTORY Hx Surgeries: Yes Hx Cataract Extraction: Yes (BILATERAL) Hx Cardiac Catheterization: Yes Hx Eye Surgery: Yes (left eye retina detachment) Hx Joint Replacement: Yes (BILATERAL HIP) Hx Musculoskeletal Surgery: Yes (LUMBAR DISECTOMY 2003) Hx Orthopedic Surgery: Yes (s/p right TKR) Other/Comment: EPIDURALS X3, BILATERAL THR, 2015 - ANESTHESIA Hx Anesthesia: Yes Hx Anesthesia Reactions: No Hx Malignant Hyperthermia: No Has any member of the family had a problem w/ anesthesia?: No Meds Allergies/Adverse Reactions: Allergies Allergy/AdvReac Type Severity Reaction Status Date / Time No Known Allergies Allergy Verified 08/27/18 06:33 Physical Exam - Constitutional Appears: No Acute Distress - Head Exam Head Exam: NORMAL INSPECTION - Eye Exam Eye Exam: EOMI, PERRL - Respiratory Exam Respiratory Exam: Clear to Auscultation Bilateral - Cardiovascular Exam Cardiovascular Exam: Irregular Rhythm. absent: Tachycardia - GI/Abdominal Exam GI & Abdominal Exam: Soft. absent: Distended, Tenderness - Extremities Exam Extremities exam: Negative for: calf tenderness, pedal edema Additional comments: L knee immovilizer in place - Neurological Exam Neurological exam: Oriented x3 - Skin Skin Exam: Dry, Warm Results - Vital Signs Recent Vital Signs: Last Vital Signs Temp 97.1 F L 08/27/18 10:30 Pulse 68 08/27/18 11:30 Resp 18 08/27/18 11:30 BP 115/70 08/27/18 11:30 Pulse Ox 99 08/27/18 11:30 - Labs Result Diagrams: 08/27/18 07:00 Labs: Laboratory Results - last 24 hr 08/27/18 08/27/18 07:00 08:28 WBC 4.5 L RBC 4.17 L Hgb 13.6 Hct 40.3 MCV 96.6 H MCH 32.6 H MCHC 33.7 RDW 13.4 Plt Count 208 MPV 8.2 Neut % (Auto) 51.8 Lymph % (Auto) 34.4 Blanco % (Auto) 10.0 Eos % (Auto) 3.0 Baso % (Auto) 0.8 Neut # (Auto) 2.3 Lymph # (Auto) 1.5 [place] # (Auto) 0.5 Eos # (Auto) 0.1 Baso # (Auto) 0.0 Blood Type A NEGATIVE Antibody Screen Negative BBK History Checked Patient has bt Assessment & Plan - Assessment and Plan (Free Text) Assessment: 72 yo male patient with pmhx of osteoarthritis, Afib, BPH, HLD, and HTN admitted POD 0 s/p left total knee replacement Plan: - Ortho on board, surgical management - pain management - continue with home meds - f/u labs in am - CBC w/ diff f/u - DVT prophylaxis with lovenox start tomorrow - PT/OT consult, f/u recommendations Case discussed with Dr Gambino.
--- NOTE | 2018-08-27 13:47 | RAD ---
Date of service: 08/27/2018 PROCEDURE: Postop left knee HISTORY: s/p right total knee replacement COMPARISON: None. TECHNIQUE: AP and lateral portable views. FINDINGS: Expected postoperative findings related to left TKA. Postoperative air in the soft tissues detected. IMPRESSION: Satisfactory postoperative status.
[2018-08-27] MEDS ORDERED: ceFAZolin 1 GM in Sodium Chloride 0.9% 100 ML IVPB ONE (14:00)
[2018-08-27] MEDS ORDERED: ceFAZolin IV 1 gm in Dextrose 1 GM/50 ML BAG IVPB ONE (20:00)
--- NOTE | 2018-08-27 20:11 | OP ---
PROCEDURE DATE: 08/27/2018 PREOPERATIVE DIAGNOSIS: Left knee osteoarthritis. POSTOPERATIVE DIAGNOSIS: Left knee osteoarthritis. PROCEDURES: Left total knee replacement. ATTENDING PHYSICIAN: Neema Adler MD. COLLEGE SPECIALIST: Jose C Mai PA-C. IMPLANTS SIZE: [employer] size 5 tibia, size 5 femur, 11 mm polyethylene insert, 32 mm patella button. ANESTHESIA TYPE: General. ESTIMATED BLOOD LOSS: 100 mL. COMPLICATIONS: None. HISTORY: The patient with prolonged history of left knee pain progressively getting worse despite extensive conservative management, which included activity modification, injections, anti-inflammatory modification and physical therapy. X-rays had revealed advanced arthritis. Patient was indicated for total knee replacement due to continued pain and limited mobility. I had a detailed discussion with the patient in the office explaining the nature of the surgery, alternatives of surgery, risks and benefits, rehabilitation protocol and surgical markings. Risks of surgery include but not limited to continued pain, lack of motion, infection, vascular injury, DVT / PE, nerve injury including peroneal nerve dysfunction, reflex sympathetic dystrophy, compartment syndrome, unforeseen medical and/or anesthesia complications, limb loss, and even . The patient expressed an understanding of the risks and possible benefits of the procedure, and is also aware of the alternatives to surgery. Paragraph 1: On the day of the surgery, the patient was admitted to pre-operative holding area. A laterality sheet was completed confirming the correct operative site. The correct surgical knee was marked in the holding area and informed consent was signed from the patient. Once again, I reviewed the risks and benefits of the surgery with the patient in detail. These risks include but are not limited to continued pain, lack of motion, infection, vascular injury, DVT / PE, nerve injury including peroneal nerve dysfunction, reflex sympathetic dystrophy, symptomatic hardware, need for further procedure and surgeries, instability, iatrogenic fractures, compartment syndrome, unforeseen medical and/or anesthesia complications, limb loss, and even . The patient expressed an understanding of the risks and possible benefits of the procedure, also aware of the alternatives to surgery and signed the informed consent. Paragraph 2: The patient was transported to the operating room and placed in the supine position, general anesthesia was obtained. Exam under anesthesia revealed left knee osteoarthritis. Paragraph 3: A padded tourniquet was applied to patient's operative thigh and appropriate prophylactic antibiotics were given. The operative leg was draped and prepped in standard sterile manner. Timeout was completed, confirming patient's left knee to be the correct operative site. Using an Esmarch, the extremity was exsanguinated and tourniquet was inflated to 350 mmHg. The surgical incision markings were made using patella border, tibial tubercle, patella and quadriceps tendon. Using a 10 blade, a midline incision was made. Skin dissection was taken until the prepatellar fascia was identified and the corners of the patellar tendon were marked for proper closure at the end of the procedure. Using a fresh 10 blade, a medial parapatellar arthrotomy was performed. The knee was exposed in the standard manner. The deep MCL was elevated for exposure, medial and lateral menisci were removed, ACL and PCL were also transected. The tibia was subluxed anteriorly. Paragraph 4: Planned tibial cut was made with power saw, using extra-medullary guide, perpendicular to mechanical axis of the tibia. After the cut was made, the alignment was also checked and was found to be appropriate. Tibial cut surface was measured with trial base plate and it was noted that size 5 tibial baseplate was provide sufficient coverage without overhang. Tibial component was externally rotated and marked. Paragraph 5: Next, the knee was placed into 90 degrees of flexion. A drill hole was made within the femoral notch anterior to PCL insertion for placement of intramedullary femoral suma. Intramedullary femoral suma was inserted within the femoral canal and planned distal femoral cut was made. After the cut, knee was brought into full extension. Spacer blocks were used to check the extension balancing both in full extension and 30 degrees of flexion. It was found that 11 mm trial spacer block allowed full extension with symmetric varus and valgus balancing. Paragraph 6: Next we proceed with Patella resurfacing. Patella width was found to 28 mm moapa patellar width. Using the free-hand technique the arthritic patella surface was resected. Patella was sized using the guide and it was noted that 32 mm patella button size. Patella dome button would be appropriate for the patient. Paragraph 7: Next the size of femoral component was determined using the posterior referencing guide. It was noted that a size 5 femoral implant femur would be appropriate for this patient without causing any significant notching. A 4 x 1 cutting block was placed and flexion gap balancing was checked. The flexion gap was found to be symmetric to the extension gap. Anterior and posterior condyle, anterior and posterior chamfer cuts were made. Next, appropriate size box cut for femoral component was prepared using the guide. Paragraph 8: The femoral trial component was impacted onto the distal femur. Appropriate size tibial trial component was also placed on the cut surface of the tibia. Using the drill and punch, keel for tibial implant was prepared. Trial tibial tray was secured onto the tibia using pins. Different size trial polyethylene inserts were secured on to the trial tibial tray to critically assess the following parametes: Full range of motion, extension and flexion gap balancing, mid-flexion stability, anterior and posterior drawer, and patellar tracking. All parameter were found to be satisfactory with 11 mm polyethylene insert. Paragraph 9: All the trial components were removed. Implants were opened on the back table. Cement was mixed and we proceed with cement fixation of the implants. Tibial tray, femoral component and patellar dome button were secured with cement. Polyethylene insert was secured onto the tibial tray using locking mechanism. The knee was reduced and brought into full extension. Cement was allowed to harden until final component fixation. Knee was taken through the final range of motion for stability testing, and found to be satisfactory. Paragraph 10: 60 mL of custom cocktail mixture was injected into posterior capsule, MCL, LCL, quadriceps tendon, and patellar tendon. Wound was copiously irrigated with sterile antibiotic solution using pulse lavage. Arthrotomy was closed using heavy suture and wound was closed in standard manner. Patient was extubated, transferred to stretcher and taken to the recovery room. Post-operative instructions were provided, physical therapy consult was requested along with DVT prophylaxis and appropriate pain medications. During this procedure, I was assisted by Jose C Mai PA-C, who assisted in positioning the patient on the operating room table as well as transferring the patient from the operating room table to the recovery room stretcher. In addition, Jose C Mai PA-C assisted me during the actual operative procedure by positioning, protecting critical neurovascular structures, exposure of the joint, and proper positioning of the implants. The presence of Terrance Monterroso my operative news assistant was medically necessary to ensure the utmost safety of the patient in the pre, intra-, and post-operative periods. Neema Adler MD
[2018-08-27] MEDS ORDERED: oxyCODONE 10 mg ER Tab (oxyCONTIN) PO SCH (21:00)
[2018-08-27] MEDS: oxyCODONE 10 mg ER Tab (oxyCONTIN) PO SCH (21:13)
[2018-08-27] MEDS: Latanoprost 0.005% Opht SOUTION OU SCH (21:17)
[2018-08-28 06:51] LABS: BASO % 0.5 % (0.0-2.0); EOS # 0.2 K/uL (0.0-0.7); EOS % 3.1 % (0.0-4.0); HEMOGLOBIN 10.3 g/dL (12.0-18.0); LYMPH # 1.6 K/uL (1.0-4.3); LYMPH % 25.7 % (20.0-40.0); MEAN CELL VOLUME 95.7 fl (80.0-94.0); MEAN CORPUSCULAR HEMOGLOBIN 33.4 pg (27.0-31.0); MEAN CORPUSCULAR HGB CONC 34.9 g/dL (33.0-37.0); MEAN PLATELET VOLUME 7.8 fl (7.2-11.7); MONO # 0.8 K/uL (0.0-0.8); MONO % 12.9 % (0.0-10.0); NEUT # 3.5 K/uL (1.8-7.0); NEUT % 57.8 % (50.0-75.0); RBC 3.09 Mil/uL (4.40-5.90); RED CELL DISTRIBUTION WIDTH 13.3 % (11.5-14.5)
[2018-08-28 07:34] LABS: BLOOD UREA NITROGEN 16 mg/dl (9-20); CALCIUM 7.8 mg/dL (8.4-10.2); GFR NON-AFRICAN AMERICAN > 60
[2018-08-28] MEDS: oxyCODONE 10 mg ER Tab (oxyCONTIN) PO SCH ×2 (08:39→21:46)
--- NOTE | 2018-08-28 08:46 | CP.PCM.PN ---
Subjective - Date & Time of Evaluation Date of Evaluation: 08/28/18 Time of Evaluation: 08:15 - Subjective Subjective: 72 yo M s/p LTKR POD#1 Pt seen and examined at bedside, comfortable Pt c/o mild left knee pain, well controlled w/pain meds Pt denies SOB, chest pain, N/V/D/, numbness/tingling LLE Objective - Vital Signs/Intake and Output Vital Signs (last 24 hours): Temp Pulse Resp BP Pulse Ox 99.1 F 67 20 109/69 97 08/28/18 08:27 08/28/18 08:27 08/28/18 08:27 08/28/18 08:27 08/28/18 08:27 - Medications Medications: Current Medications Acetaminophen (Tylenol 325mg Tab) 325 mg PO Q4 PRN PRN Reason: pain1-3 Aspirin (Ecotrin) 325 mg PO Q12 [facility] Atorvastatin Calcium (Lipitor) 20 mg PO HS [facility] Last Admin: 08/27/18 21:14 Dose: 20 mg Celecoxib (Celebrex) 100 mg PO Q12 [facility] Last Admin: 08/27/18 21:14 Dose: 100 mg Docusate Sodium (Colace) 100 mg PO TID [facility] Last Admin: 08/27/18 16:41 Dose: 100 mg Enoxaparin Sodium (Lovenox) 40 mg SC DAILY [facility]; Protocol Hydrochlorothiazide (Microzide) 12.5 mg PO DAILY [facility] Hydromorphone HCl (Dilaudid 0.2 Mg/Ml Corporate Human Resources Manager) 6 mg IV PRN PRN; Protocol PRN Reason: Pain, moderate (4-7) Last Admin: 08/27/18 12:45 Dose: 6 mg Lactated Ringer's (Lactated Ringer's) 1,000 mls @ 100 mls/hr IV .Q10H [facility] Last Admin: 08/27/18 18:20 Dose: 100 mls/hr Latanoprost (Xalatan Opht) 1 drop OU HS [facility] Last Admin: 08/27/18 21:17 Dose: 1 drop Lidocaine (Lidoderm) 1 ea TD DAILY [facility] Lisinopril (Zestril) 10 mg PO DAILY [facility] Oxycodone HCl (Oxycontin Extended Release Tab) 10 mg PO Q12 [facility] Stop: 09/10/18 21:01 Last Admin: 08/28/18 08:39 Dose: 10 mg Oxycodone HCl (Oxycodone Immediate Release Tab) 5 mg PO Q4 PRN PRN Reason: pain4-6 Tamsulosin HCl (Flomax) 0.4 mg PO HS [facility] Last Admin: 08/27/18 21:16 Dose: 0.4 mg Tramadol HCl (Ultram) 50 mg PO Q4 PRN PRN Reason: pain7-10 Last Admin: 08/28/18 08:39 Dose: 50 mg - Labs Labs: 08/28/18 06:30 08/28/18 06:30 - Constitutional Appears: Well, Non-toxic, No Acute Distress - Respiratory Exam Respiratory Exam: Clear to Ausculation Bilateral, NORMAL BREATHING PATTERN - Cardiovascular Exam Cardiovascular Exam: REGULAR RHYTHM, RRR - Extremities Exam Additional comments: LLE: Knee dressing C/D/I Calves soft and nontender b/l N/V intact distally Normal ROM left ankle Distal pulses wnl No foot drop Assessment and Plan - Assessment and Plan (Free Text) Assessment: 72 yo M s/p LTKR POD#1 Plan: Pain Control DVT ppx PT/OT- WBAT LLE SCD b/l LE Incentive Spirometer F/U daily labs Discussed with Dr. Adler
[2018-08-28] MEDS ORDERED: Enoxaparin 40 mg Syringe SC SCH (09:00)
[2018-08-28] MEDS: Aspirin 325 mg EC Tablets PO SCH ×2 (09:03→23:19)
[2018-08-28] MEDS: Lidocaine 5% Patch TD SCH (09:07)
--- NOTE | 2018-08-28 09:35 | CP.PCM.CON ---
History of Present Illness - History of Present Illness History of Present Illness: This 72-year-old man has been under my care for more than 4 years for hypertension and dyslipidemia. He has had a history of DVT following hip surgery and briefly developed atrial fibrillation and had taken oral anticoagulation. Subsequently he has undergone replacement of right knee and yesterday underwent replacement of left knee. He denies any palpitations or chest pains or symptoms of congestive cardiac failure. Physical examination shows an elderly gentleman who is alert awake colon weren't afebrile and breathes comfortably at 14 breaths per minute and can carry on a conversation while lying slightly propped up in bed. He reports a mild degree of postsurgical pain but reported that he was able to sleep well last night. His heart rate was 70 bpm regular and his blood pressure was 112/70 mmHg. His jugular venous pressure was not elevated there was no pedal edema. Pedal pulses were well felt. Surgical wound was clean. The apex was not palpable. The first and second heart sounds were normal. There was no murmur or gallop. There were no rales. Abdomen was soft liver and spleen are not palpable. His labs were noted. His hemoglobin has dropped from 13.62 10.3 g. Her CBC count and platelet counts were normal. BUN/creatinine and electrolytes are normal. Impression: Status post left total knee replacement postoperative day one. History of hypertension and dyslipidemia. History of DVT following a right hip surgery. History of atrial fibrillation. The patient appears stable from cardiovascular point of view. I have recommended a follow-up electrocardiogram. Past Patient History - Infectious Disease Hx of Infectious Diseases: None - Tetanus Immunizations Tetanus Immunization: Unknown - Past Medical History & Family History Past Medical History?: Yes - Past Social History Smoking Status: Former Smoker - CARDIAC Hx Cardiac Disorders: Yes (afib, htn) Hx Cardia Arrhythmia: Yes Hx Hypercholesterolemia: Yes Hx Hypertension: Yes Other/Comment: IRRAGULAR HEARTBEAT - PULMONARY Hx Respiratory Disorders: No - NEUROLOGICAL Hx Neurological Disorder: No - HEENT Hx HEENT Problems: Yes Hx Cataracts: Yes (both) Hx Glaucoma: Yes (both) Other/Comment: detached retina - RENAL Hx Chronic Kidney Disease: Yes Hx Kidney Stones: Yes (LEFT) - ENDOCRINE/METABOLIC Hx Endocrine Disorders: No - HEMATOLOGICAL/ONCOLOGICAL Hx Blood Disorders: Yes Hx AIDS: No Hx Anemia: Yes Hx Blood Transfusions: Yes (2015) Hx Blood Transfusion Reaction: No Hx Human Immunodeficiency Virus (HIV): No - INTEGUMENTARY Hx Dermatological Problems: Yes Hx Basil Cell: Yes - MUSCULOSKELETAL/RHEUMATOLOGICAL Hx Musculoskeletal Disorders: Yes Hx Arthritis: Yes (both knees) Hx Back Pain: Yes (spinal discectomy) Hx Degenerative Joint Disease: Yes Hx Falls: No Hx Osteoarthritis: Yes Hx Rheumatoid Arthritis: No Hx Spinal Stenosis: Yes Other/Comment: 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; dissectomy of L4-L5 - GASTROINTESTINAL Hx Gastrointestinal Disorders: Yes Hx Gall Bladder Disease: Yes (gallstones) - GENITOURINARY/GYNECOLOGICAL Hx Genitourinary Disorders: No Other/Comment: BPH - PSYCHIATRIC Hx Psychophysiologic Disorder: No Hx Emotional Abuse: No Hx Physical Abuse: No Hx Substance Use: No - SURGICAL HISTORY Hx Surgeries: Yes Hx Cataract Extraction: Yes (BILATERAL) Hx Cardiac Catheterization: Yes Hx Eye Surgery: Yes (left eye retina detachment) Hx Joint Replacement: Yes (BILATERAL HIP) Hx Musculoskeletal Surgery: Yes (LUMBAR DISECTOMY 2003) Hx Orthopedic Surgery: Yes (s/p right TKR) Other/Comment: EPIDURALS X3, BILATERAL THR, 2014 - ANESTHESIA Hx Anesthesia: Yes Hx Anesthesia Reactions: No Hx Malignant Hyperthermia: No Has any member of the family had a problem w/ anesthesia?: No Meds Allergies/Adverse Reactions: Allergies Allergy/AdvReac Type Severity Reaction Status Date / Time No Known Allergies Allergy Verified 08/27/18 06:33 - Medications Medications: Current Medications Acetaminophen (Tylenol 325mg Tab) 325 mg PO Q4 PRN PRN Reason: pain1-3 Aspirin (Ecotrin) 325 mg PO Q12 [facility] Last Admin: 08/28/18 09:03 Dose: 325 mg Atorvastatin Calcium (Lipitor) 20 mg PO HS [facility] Last Admin: 08/27/18 21:14 Dose: 20 mg Celecoxib (Celebrex) 100 mg PO Q12 [facility] Last Admin: 08/28/18 09:03 Dose: 100 mg Docusate Sodium (Colace) 100 mg PO TID [facility] Last Admin: 08/28/18 09:02 Dose: 100 mg Enoxaparin Sodium (Lovenox) 40 mg SC DAILY [facility]; Protocol Hydrochlorothiazide (Microzide) 12.5 mg PO DAILY [facility] Last Admin: 08/28/18 09:03 Dose: 12.5 mg Hydromorphone HCl (Dilaudid 0.2 Mg/Ml Form Tamping Machine Operator) 6 mg IV PRN PRN; Protocol PRN Reason: Pain, moderate (4-7) Last Admin: 08/27/18 12:45 Dose: 6 mg Lactated Ringer's (Lactated Ringer's) 1,000 mls @ 100 mls/hr IV .Q10H [facility] Last Admin: 08/27/18 18:20 Dose: 100 mls/hr Latanoprost (Xalatan Opht) 1 drop OU HS [facility] Last Admin: 08/27/18 21:17 Dose: 1 drop Lidocaine (Lidoderm) 1 ea TD DAILY [facility] Last Admin: 08/28/18 09:07 Dose: 1 ea Lisinopril (Zestril) 10 mg PO DAILY [facility] Last Admin: 08/28/18 09:02 Dose: 10 mg Oxycodone HCl (Oxycontin Extended Release Tab) 10 mg PO Q12 [facility] Stop: 09/10/18 21:01 Last Admin: 08/28/18 08:39 Dose: 10 mg Oxycodone HCl (Oxycodone Immediate Release Tab) 5 mg PO Q4 PRN PRN Reason: pain4-6 Tamsulosin HCl (Flomax) 0.4 mg PO HS [facility] Last Admin: 08/27/18 21:16 Dose: 0.4 mg Tramadol HCl (Ultram) 50 mg PO Q4 PRN PRN Reason: pain7-10 Last Admin: 08/28/18 08:39 Dose: 50 mg Results - Vital Signs Recent Vital Signs: Last Vital Signs Temp 99.1 F 08/28/18 08:27 Pulse 70 08/28/18 09:02 Resp 20 08/28/18 08:27 BP 124/64 08/28/18 09:02 Pulse Ox 97 08/28/18 08:27 - Labs Result Diagrams: 08/28/18 06:30 08/28/18 06:30 Labs: Laboratory Results - last 24 hr 08/27/18 08/28/18 08/28/18 08:28 06:30 06:30 WBC 6.0 RBC 3.09 L Hgb 10.3 L D Hct 29.6 L MCV 95.7 H MCH 33.4 H MCHC 34.9 RDW 13.3 Plt Count 153 MPV 7.8 Neut % (Auto) 57.8 Lymph % (Auto) 25.7 [place] % (Auto) 12.9 H Eos % (Auto) 3.1 Baso % (Auto) 0.5 Neut # (Auto) 3.5 Lymph # (Auto) 1.6 [place] # (Auto) 0.8 Eos # (Auto) 0.2 Baso # (Auto) 0.0 Sodium 137 Potassium 4.0 Chloride 103 Carbon Dioxide 32 H Anion Gap 6 L BUN 16 Creatinine 0.8 Est GFR ( Amer) > 60 Est GFR (Non-Af Amer) > 60 Random Glucose 129 H Calcium 7.8 L Blood Type A NEGATIVE Antibody Screen Negative
--- NOTE | 2018-08-28 11:30 | CARD ---
APPROVED REPORT Date of service: 08/28/2018 EKG Measurement Heart [id number] NM [id number] <Conclusion> Sinus rhythm with 1st degree AV block Incomplete right bundle branch block Borderline ECG
--- NOTE | 2018-08-28 16:07 | CP.PCM.PN ---
Subjective - Date & Time of Evaluation Date of Evaluation: 08/28/18 Time of Evaluation: 11:00 - Subjective Subjective: patient seen and examined at bedside. patient states feeling well. postoperative pain is well controlled. tolerating po well. no acute events overnight. Objective - Vital Signs/Intake and Output Vital Signs (last 24 hours): Temp Pulse Resp BP Pulse Ox 99.1 F 87 20 124/64 97 08/28/18 08:27 08/28/18 14:24 08/28/18 08:27 08/28/18 09:02 08/28/18 08:27 - Medications Medications: Current Medications Acetaminophen (Tylenol 325mg Tab) 325 mg PO Q4 PRN PRN Reason: pain1-3 Aspirin (Ecotrin) 325 mg PO Q12 [facility] Last Admin: 08/28/18 09:03 Dose: 325 mg Atorvastatin Calcium (Lipitor) 20 mg PO HS [facility] Last Admin: 08/27/18 21:14 Dose: 20 mg Celecoxib (Celebrex) 100 mg PO Q12 [facility] Last Admin: 08/28/18 09:03 Dose: 100 mg Docusate Sodium (Colace) 100 mg PO TID [facility] Last Admin: 08/28/18 09:02 Dose: 100 mg Hydrochlorothiazide (Microzide) 12.5 mg PO DAILY [facility] Last Admin: 08/28/18 09:03 Dose: 12.5 mg Hydromorphone HCl (Dilaudid 0.2 Mg/Ml Spanish Speaking Babysitter) 6 mg IV PRN PRN; Protocol PRN Reason: Pain, moderate (4-7) Last Admin: 08/27/18 12:45 Dose: 6 mg Lactated Ringer's (Lactated Ringer's) 1,000 mls @ 100 mls/hr IV .Q10H [facility] Last Admin: 08/27/18 18:20 Dose: 100 mls/hr Latanoprost (Xalatan Opht) 1 drop OU HS [facility] Last Admin: 08/27/18 21:17 Dose: 1 drop Lidocaine (Lidoderm) 1 ea TD DAILY [facility] Last Admin: 08/28/18 09:07 Dose: 1 ea Lisinopril (Zestril) 10 mg PO DAILY [facility] Last Admin: 08/28/18 09:02 Dose: 10 mg Oxycodone HCl (Oxycontin Extended Release Tab) 10 mg PO Q12 [facility] Stop: 09/10/18 21:01 Last Admin: 08/28/18 08:39 Dose: 10 mg Oxycodone HCl (Oxycodone Immediate Release Tab) 5 mg PO Q4 PRN PRN Reason: pain4-6 Tamsulosin HCl (Flomax) 0.4 mg PO HS [facility] Last Admin: 08/27/18 21:16 Dose: 0.4 mg Tramadol HCl (Ultram) 50 mg PO Q4 PRN PRN Reason: pain7-10 Last Admin: 08/28/18 08:39 Dose: 50 mg - Labs Labs: 08/28/18 06:30 08/28/18 06:30 - Constitutional Appears: Well, Non-toxic, No Acute Distress - Head Exam Head Exam: NORMAL INSPECTION - Eye Exam Eye Exam: Normal appearance - Respiratory Exam Respiratory Exam: NORMAL BREATHING PATTERN - Cardiovascular Exam Cardiovascular Exam: +S1, +S2 - Extremities Exam Additional comments: left knee in dressing - Neurological Exam Neurological Exam: Alert, Awake - Psychiatric Exam Psychiatric exam: Normal Affect, Normal Mood - Skin Skin Exam: Normal Color, Warm Assessment and Plan - Assessment and Plan (Free Text) Assessment: 72 yo male patient with pmhx of osteoarthritis, Afib, BPH, HLD, and HTN admitted POD 1 s/p left total knee replacement Plan: - Ortho on board, surgical management - pain management - continue with home meds - f/u labs in am - DVT prophylaxis with ASA 325mg BID - PT/OT consult, f/u recommendations
[2018-08-28 16:27] VITALS: RESP 18
[2018-08-28] MEDS: oxyCODONE 5 mg Immediate Release Tab PO PRN (16:31)
[2018-08-28] MEDS: Latanoprost 0.005% Opht SOUTION OU SCH (21:54)
[2018-08-29 06:31] LABS: BASO % 0.6 % (0.0-2.0); EOS # 0.3 K/uL (0.0-0.7); EOS % 4.8 % (0.0-4.0); HEMOGLOBIN 9.5 g/dL (12.0-18.0); LYMPH # 1.6 K/uL (1.0-4.3); LYMPH % 27.8 % (20.0-40.0); MEAN CELL VOLUME 97.3 fl (80.0-94.0); MEAN CORPUSCULAR HEMOGLOBIN 33.1 pg (27.0-31.0); MEAN PLATELET VOLUME 7.3 fl (7.2-11.7); MONO # 0.8 K/uL (0.0-0.8); NEUT # 2.9 K/uL (1.8-7.0); NEUT % 52.8 % (50.0-75.0); RBC 2.88 Mil/uL (4.40-5.90); RED CELL DISTRIBUTION WIDTH 13.2 % (11.5-14.5); WHITE BLOOD COUNT 5.6 K/uL (4.8-10.8)
[2018-08-29 06:41] LABS: BLOOD UREA NITROGEN 14 mg/dl (9-20); GFR NON-AFRICAN AMERICAN > 60
[2018-08-29] MEDS: oxyCODONE 10 mg ER Tab (oxyCONTIN) PO SCH (09:11)
[2018-08-29] MEDS: Aspirin 325 mg EC Tablets PO SCH (09:14)
[2018-08-29] MEDS: Lidocaine 5% Patch TD SCH (09:16)
[2018-08-29] MEDS ORDERED: Pantoprazole 40 mg EC Tab PO SCH (10:15)
--- NOTE | 2018-08-29 13:05 | CP.PCM.PN ---
Subjective - Date & Time of Evaluation Date of Evaluation: 08/29/18 Time of Evaluation: 10:00 - Subjective Subjective: Patient seen and examined OOB to chair comfortable. Pain is well controlled. No acute events overnight. Barbara PT well. Denies CP/SOB/REYNOLDS/fever. Objective - Vital Signs/Intake and Output Vital Signs (last 24 hours): Temp Pulse Resp BP Pulse Ox 99.7 F H 106 H 18 123/75 94 L 08/29/18 08:13 08/29/18 09:44 08/29/18 08:13 08/29/18 09:44 08/29/18 08:13 - Medications Medications: Current Medications Acetaminophen (Tylenol 325mg Tab) 325 mg PO Q4 PRN PRN Reason: pain1-3 Aspirin (Ecotrin) 325 mg PO Q12 [facility] Last Admin: 08/29/18 09:14 Dose: 325 mg Atorvastatin Calcium (Lipitor) 20 mg PO HS [facility] Last Admin: 08/28/18 21:47 Dose: 20 mg Celecoxib (Celebrex) 100 mg PO Q12 [facility] Last Admin: 08/29/18 09:15 Dose: 100 mg Docusate Sodium (Colace) 100 mg PO TID [facility] Last Admin: 08/29/18 09:14 Dose: 100 mg Hydrochlorothiazide (Microzide) 12.5 mg PO DAILY [facility] Last Admin: 08/29/18 09:15 Dose: 12.5 mg Lactated Ringer's (Lactated Ringer's) 1,000 mls @ 100 mls/hr IV .Q10H [facility] Last Admin: 08/27/18 18:20 Dose: 100 mls/hr Latanoprost (Xalatan Opht) 1 drop OU HS [facility] Last Admin: 08/28/18 21:54 Dose: 1 drop Lidocaine (Lidoderm) 1 ea TD DAILY [facility] Last Admin: 08/29/18 09:16 Dose: 1 ea Lisinopril (Zestril) 10 mg PO DAILY [facility] Last Admin: 08/29/18 09:44 Dose: 10 mg Oxycodone HCl (Oxycontin Extended Release Tab) 10 mg PO Q12 [facility] Stop: 09/10/18 21:01 Last Admin: 08/29/18 09:11 Dose: 10 mg Oxycodone HCl (Oxycodone Immediate Release Tab) 5 mg PO Q4 PRN PRN Reason: pain4-6 Last Admin: 08/28/18 16:31 Dose: 5 mg Pantoprazole Sodium (Protonix Ec Tab) 40 mg PO DAILY [facility] Tamsulosin HCl (Flomax) 0.4 mg PO HS [facility] Last Admin: 08/28/18 21:47 Dose: 0.4 mg Tramadol HCl (Ultram) 50 mg PO Q4 PRN PRN Reason: pain7-10 Last Admin: 08/29/18 09:12 Dose: 50 mg - Labs Labs: 08/29/18 06:20 08/29/18 06:20 - Extremities Exam Additional comments: L knee: Dressings CDI, Dressings removed revealing wound CDI with rhonda, no drainage mild swelling and tenderness 2nd to surgery sensation intact SP/DP/TN motor intact EHL/FHL/TA/G pedal pulses intact comps soft NT b/l Assessment and Plan (1) Osteoarthritis of left knee Assessment & Plan: POD #2 s/p L TKA doing well -PT/OT WBAT -DVT ppx -Dressings changed -orthopedically stable for discharge -f/u in office within 7-10 days -above d/w Dr. Adler in agreement Status: Acute
--- NOTE | 2018-08-29 16:08 | CP.PCM.PN ---
Subjective - Date & Time of Evaluation Date of Evaluation: 08/29/18 Time of Evaluation: 11:00 - Subjective Subjective: patient seen and examined at bedside. patient states feeling well. postoperative pain is well controlled. tolerating po well. no acute events overnight. Objective - Vital Signs/Intake and Output Vital Signs (last 24 hours): Temp Pulse Resp BP Pulse Ox 99.7 F H 106 H 18 123/75 94 L 08/29/18 08:13 08/29/18 09:44 08/29/18 08:13 08/29/18 09:44 08/29/18 08:13 - Medications Medications: Current Medications Acetaminophen (Tylenol 325mg Tab) 325 mg PO Q4 PRN PRN Reason: pain1-3 Aspirin (Ecotrin) 325 mg PO Q12 [facility] Last Admin: 08/29/18 09:14 Dose: 325 mg Atorvastatin Calcium (Lipitor) 20 mg PO HS [facility] Last Admin: 08/28/18 21:47 Dose: 20 mg Celecoxib (Celebrex) 100 mg PO Q12 [facility] Last Admin: 08/29/18 09:15 Dose: 100 mg Docusate Sodium (Colace) 100 mg PO TID [facility] Last Admin: 08/29/18 14:17 Dose: 100 mg Hydrochlorothiazide (Microzide) 12.5 mg PO DAILY [facility] Last Admin: 08/29/18 09:15 Dose: 12.5 mg Lactated Ringer's (Lactated Ringer's) 1,000 mls @ 100 mls/hr IV .Q10H [facility] Last Admin: 08/27/18 18:20 Dose: 100 mls/hr Latanoprost (Xalatan Opht) 1 drop OU HS [facility] Last Admin: 08/28/18 21:54 Dose: 1 drop Lidocaine (Lidoderm) 1 ea TD DAILY [facility] Last Admin: 08/29/18 09:16 Dose: 1 ea Lisinopril (Zestril) 10 mg PO DAILY [facility] Last Admin: 08/29/18 09:44 Dose: 10 mg Oxycodone HCl (Oxycontin Extended Release Tab) 10 mg PO Q12 [facility] Stop: 09/10/18 21:01 Last Admin: 08/29/18 09:11 Dose: 10 mg Oxycodone HCl (Oxycodone Immediate Release Tab) 5 mg PO Q4 PRN PRN Reason: pain4-6 Last Admin: 08/28/18 16:31 Dose: 5 mg Pantoprazole Sodium (Protonix Ec Tab) 40 mg PO DAILY [facility] Last Admin: 08/29/18 14:22 Dose: 40 mg Tamsulosin HCl (Flomax) 0.4 mg PO HS [facility] Last Admin: 08/28/18 21:47 Dose: 0.4 mg Tramadol HCl (Ultram) 50 mg PO Q4 PRN PRN Reason: pain7-10 Last Admin: 08/29/18 14:17 Dose: 50 mg - Labs Labs: 08/29/18 06:20 08/29/18 06:20 - Additional Findings Additional findings: - Constitutional Appears: Well, Non-toxic, No Acute Distress - Head Exam Head Exam: NORMAL INSPECTION - Eye Exam Eye Exam: Normal appearance - Respiratory Exam Respiratory Exam: NORMAL BREATHING PATTERN - Cardiovascular Exam Cardiovascular Exam: +S1, +S2 - Extremities Exam Additional comments: left knee in dressing - Neurological Exam Neurological Exam: Alert, Awake - Psychiatric Exam Psychiatric exam: Normal Affect, Normal Mood - Skin Skin Exam: Normal Color, Warm Assessment and Plan - Assessment and Plan (Free Text) Assessment: 72 yo male patient with pmhx of osteoarthritis, Afib, BPH, HLD, and HTN admitted POD 2 s/p left total knee replacement Plan: - Ortho on board, surgical management - pain management - continue with home meds - f/u labs in am - DVT prophylaxis with ASA 325mg BID - PT/OT consult, f/u recommendations
[2018-08-29 16:09] VITALS: BP 107/69; PULSE 76; TEMP 97.9; O2SAT 97
[2018-08-29] MEDS: oxyCODONE 5 mg Immediate Release Tab PO PRN (18:34)
== END 2018-08-29 18:45 | DRG 470 ==
LOC: H.OPSURG 06:02 → H.MEDSURG1 11:50
PROVIDERS: ADMIT Family Medicine; ATTEND Family Medicine
PROC: 0SRD0J9 Replacement of Left Knee Joint with Synthetic Substitute, Cemented, Open Approach (ICD-10-PCS; principal; 2018-08-27 12:25)
DX: M17.12 Unilateral primary osteoarthritis, left knee (principal); I48.2 Chronic atrial fibrillation; I10 Essential (primary) hypertension; E78.5 Hyperlipidemia, unspecified; E78.00 Pure hypercholesterolemia, unspecified; N40.0 Benign prostatic hyperplasia without lower urinary tract symptoms; Z96.651 Presence of right artificial knee joint; Z86.718 Personal history of other venous thrombosis and embolism; Z87.442 Personal history of urinary calculi; Z87.891 Personal history of nicotine dependence

== ENCOUNTER 2018-08-29 18:42 | Inpatient (IN) | payer OTHER ==
[2014-12-15 10:13] VITALS: PULSE 124
[2018-08-29 19:25] VITALS: BMI 31.8
[2018-08-29 21:22] VITALS: RESP 20
[2018-08-29] MEDS: oxyCODONE 10 mg ER Tab (oxyCONTIN) PO SCH (21:42)
[2018-08-29] MEDS: Aspirin 325 mg EC Tablets PO SCH (21:44)
[2018-08-29] MEDS ORDERED: Latanoprost 0.005% Opht SOUTION OU SCH (22:00)
[2018-08-29] MEDS ORDERED: BIMATOPROST BOTHEYES SCH (22:00)
[2018-08-29] MEDS: Oxycodone/Acetaminophen 5/325 mg Tab PO PRN (23:58)
[2018-08-30] MEDS: Oxycodone/Acetaminophen 5/325 mg Tab PO PRN (06:25)
[2018-08-30 08:24] VITALS: BP 118/66; TEMP 97.6; O2SAT 99
[2018-08-30] MEDS: Aspirin 325 mg EC Tablets PO SCH (08:26)
[2018-08-30] MEDS: oxyCODONE 10 mg ER Tab (oxyCONTIN) PO SCH (08:27)
[2018-08-30] MEDS ORDERED: Lidocaine 5% Patch TD SCH (09:00)
[2018-08-30] MEDS ORDERED: Ferrous fumarate/Vit C 65-25 MG TABLET.ER PO SCH (09:00)
[2018-08-30] MEDS ORDERED: Pantoprazole 40 mg EC Tab PO SCH (09:00)
[2018-08-30 09:24] VITALS: PULSE 79
--- NOTE | 2018-08-30 10:45 | CP.PCM.CON ---
History of Present Illness - History of Present Illness History of Present Illness: The patient has just returned from his morning session of physical therapy and appears quite comfortable. An electrocardiogram done now shows atrial fibrillation at a heart rate of 134 bpm. His blood pressure was 110/70 mmHg with no evidence off volume overload. I have discussed his case with Dr. Reno as well as patient's and patient. I have recommended that he be treated on a telemetry floor to manage his heart rate and to start him on oral anticoagulation. Past Patient History - Infectious Disease Hx of Infectious Diseases: None - Tetanus Immunizations Tetanus Immunization: Unknown - Past Medical History & Family History Past Medical History?: Yes - Past Social History Smoking Status: Never Smoked - CARDIAC Hx Cardiac Disorders: Yes (afib, htn) Hx Cardia Arrhythmia: Yes Hx Hypercholesterolemia: Yes Hx Hypertension: Yes Other/Comment: IRRAGULAR HEARTBEAT - PULMONARY Hx Respiratory Disorders: No - NEUROLOGICAL Hx Neurological Disorder: No - HEENT Hx HEENT Problems: Yes Hx Cataracts: Yes (both) Hx Glaucoma: Yes (both) Other/Comment: detached retina - RENAL Hx Chronic Kidney Disease: Yes Hx Kidney Stones: Yes (LEFT) - ENDOCRINE/METABOLIC Hx Endocrine Disorders: No - HEMATOLOGICAL/ONCOLOGICAL Hx Blood Disorders: Yes Hx AIDS: No Hx Anemia: Yes Hx Blood Transfusions: Yes (2014) Hx Blood Transfusion Reaction: No Hx Human Immunodeficiency Virus (HIV): No - INTEGUMENTARY Hx Dermatological Problems: Yes Hx Basil Cell: Yes - MUSCULOSKELETAL/RHEUMATOLOGICAL Hx Musculoskeletal Disorders: Yes Hx Arthritis: Yes (both knees) Hx Back Pain: Yes (spinal discectomy) Hx Degenerative Joint Disease: Yes Hx Falls: No Hx Osteoarthritis: Yes Hx Rheumatoid Arthritis: No Hx Spinal Stenosis: Yes Other/Comment: 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; dissectomy of L4-L5 - GASTROINTESTINAL Hx Gastrointestinal Disorders: Yes Hx Gall Bladder Disease: Yes (gallstones) - GENITOURINARY/GYNECOLOGICAL Hx Genitourinary Disorders: No Other/Comment: BPH - PSYCHIATRIC Hx Psychophysiologic Disorder: No Hx Emotional Abuse: No Hx Physical Abuse: No Hx Substance Use: No - SURGICAL HISTORY Hx Surgeries: Yes Hx Cataract Extraction: Yes (BILATERAL) Hx Cardiac Catheterization: Yes Hx Eye Surgery: Yes (left eye retina detachment) Hx Joint Replacement: Yes (BILATERAL HIP) Hx Musculoskeletal Surgery: Yes (LUMBAR DISECTOMY 2003) Hx Orthopedic Surgery: Yes (s/p right TKR) Other/Comment: EPIDURALS X3, BILATERAL THR, 2015 - ANESTHESIA Hx Anesthesia: Yes Hx Anesthesia Reactions: No Hx Malignant Hyperthermia: No Meds Allergies/Adverse Reactions: Allergies Allergy/AdvReac Type Severity Reaction Status Date / Time No Known Allergies Allergy Verified 08/29/18 19:16 - Medications Medications: Current Medications Aspirin (Ecotrin) 325 mg PO Q12 [facility] Last Admin: 08/30/18 08:26 Dose: 325 mg Atorvastatin Calcium (Lipitor) 20 mg PO HS [facility] Last Admin: 08/29/18 21:43 Dose: 20 mg Celecoxib (Celebrex) 100 mg PO Q12 [facility] Last Admin: 08/30/18 08:26 Dose: 100 mg Docusate Sodium (Colace) 100 mg PO TID [facility] Last Admin: 08/30/18 08:26 Dose: 100 mg Hydrochlorothiazide (Microzide) 12.5 mg PO DAILY [facility] Last Admin: 08/30/18 08:27 Dose: 12.5 mg Latanoprost (Xalatan Opht) 1 drop OU HS [facility] Last Admin: 08/29/18 21:43 Dose: 1 drop Lidocaine (Lidoderm) 1 ea TD DAILY [facility] Last Admin: 08/30/18 08:26 Dose: 1 ea Lisinopril (Zestril) 10 mg PO DAILY [facility] Last Admin: 08/30/18 08:27 Dose: 10 mg Oxycodone HCl (Oxycontin Extended Release Tab) 10 mg PO Q12 [facility] Stop: 09/01/18 21:01 Last Admin: 08/30/18 08:27 Dose: 10 mg Oxycodone/Acetaminophen (Percocet 5/325 Mg Tab) 1 tab PO Q4 PRN PRN Reason: Pain, Moderate (4-10) Stop: 09/01/18 19:28 Last Admin: 08/30/18 06:25 Dose: 1 tab Pantoprazole Sodium (Protonix Ec Tab) 40 mg PO DAILY [facility] Last Admin: 08/30/18 08:27 Dose: 40 mg Tamsulosin HCl (Flomax) 0.4 mg PO HS [facility] Last Admin: 08/29/18 21:44 Dose: 0.4 mg Results - Vital Signs Recent Vital Signs: Last Vital Signs Temp 97.6 F 08/30/18 08:23 Pulse 79 08/30/18 08:56 Resp 20 08/30/18 08:23 BP 118/66 08/30/18 08:27 Pulse Ox 99 08/30/18 08:23
--- NOTE | 2018-08-30 11:45 | CP.PCM.HP ---
History of Present Illness - History of Present Illness History of Present Illness: 72 yo male patient with pmhx of osteoarthritis, Afib, BPH, HLD, and HTN admitted POD 3 s/p left total knee replacement was found to be in atrial fibrillation this morning immediately following his physical therapy session. The patient reports a previous episode of atrial fibrillation 3 years back following surgery for hip replacement. Currently no on anticoagulation. He denies current or recent chest pain, SOB, dizziness or weakness. The patient has spontaneously converted to sinus rhythm and is hemodynamically stable. Will admit to Tele. Dr Beck on board. PMHx: Afib, HLD, HTN, BPH PSHx: Hip replacement x2, cataract, glaucoma and back surgery FH: Father due to pancreas and liver ca. Meds: see jacek SH: never smoker, denies drinking and illicit drug use All: NKDA Present on Admission - Present on Admission Any Indicators Present on Admission: No Past Patient History - Infectious Disease Hx of Infectious Diseases: None - Tetanus Immunizations Tetanus Immunization: Unknown - Past Medical History & Family History Past Medical History?: Yes - Past Social History Smoking Status: Never Smoked - CARDIAC Hx Cardiac Disorders: Yes (afib, htn) Hx Cardia Arrhythmia: Yes Hx Hypercholesterolemia: Yes Hx Hypertension: Yes Other/Comment: IRRAGULAR HEARTBEAT - PULMONARY Hx Respiratory Disorders: No - NEUROLOGICAL Hx Neurological Disorder: No - HEENT Hx HEENT Problems: Yes Hx Cataracts: Yes (both) Hx Glaucoma: Yes (both) Other/Comment: detached retina - RENAL Hx Chronic Kidney Disease: Yes Hx Kidney Stones: Yes (LEFT) - ENDOCRINE/METABOLIC Hx Endocrine Disorders: No - HEMATOLOGICAL/ONCOLOGICAL Hx Blood Disorders: Yes Hx AIDS: No Hx Anemia: Yes Hx Blood Transfusions: Yes (2014) Hx Blood Transfusion Reaction: No Hx Human Immunodeficiency Virus (HIV): No - INTEGUMENTARY Hx Dermatological Problems: Yes Hx Basil Cell: Yes - MUSCULOSKELETAL/RHEUMATOLOGICAL Hx Musculoskeletal Disorders: Yes Hx Arthritis: Yes (both knees) Hx Back Pain: Yes (spinal discectomy) Hx Degenerative Joint Disease: Yes Hx Falls: No Hx Osteoarthritis: Yes Hx Rheumatoid Arthritis: No Hx Spinal Stenosis: Yes Other/Comment: 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; dissectomy of L4-L5 - GASTROINTESTINAL Hx Gastrointestinal Disorders: Yes Hx Gall Bladder Disease: Yes (gallstones) - GENITOURINARY/GYNECOLOGICAL Hx Genitourinary Disorders: No Other/Comment: BPH - PSYCHIATRIC Hx Psychophysiologic Disorder: No Hx Emotional Abuse: No Hx Physical Abuse: No Hx Substance Use: No - SURGICAL HISTORY Hx Surgeries: Yes Hx Cataract Extraction: Yes (BILATERAL) Hx Cardiac Catheterization: Yes Hx Eye Surgery: Yes (left eye retina detachment) Hx Joint Replacement: Yes (BILATERAL HIP) Hx Musculoskeletal Surgery: Yes (LUMBAR DISECTOMY 2003) Hx Orthopedic Surgery: Yes (s/p right TKR) Other/Comment: EPIDURALS X3, BILATERAL THR, 2015 - ANESTHESIA Hx Anesthesia: Yes Hx Anesthesia Reactions: No Hx Malignant Hyperthermia: No Meds Allergies/Adverse Reactions: Allergies Allergy/AdvReac Type Severity Reaction Status Date / Time No Known Allergies Allergy Verified 08/29/18 19:16 Physical Exam - Constitutional Appears: No Acute Distress - Head Exam Head Exam: NORMAL INSPECTION - Respiratory Exam Respiratory Exam: Clear to Auscultation Bilateral - Cardiovascular Exam Cardiovascular Exam: Irregular Rhythm. absent: Tachycardia - GI/Abdominal Exam GI & Abdominal Exam: Normal Bowel Sounds, Soft. absent: Distended, Tenderness - Extremities Exam Extremities exam: Negative for: calf tenderness, pedal edema - Neurological Exam Neurological exam: Alert, CN II-XII Intact, Oriented x3 - Skin Skin Exam: Dry, Warm Results - Vital Signs Recent Vital Signs: Last Vital Signs Temp 97.6 F 08/30/18 08:23 Pulse 79 08/30/18 08:56 Resp 20 08/30/18 08:23 BP 118/66 08/30/18 08:27 Pulse Ox 99 08/30/18 08:23 Assessment & Plan - Assessment and Plan (Free Text) Assessment: 72 yo male patient with pmhx of osteoarthritis, Afib, BPH, HLD, and HTN POD 3 s/p left total knee replacement with Afib with RVR Plan: - denies CP or SOB - spontaneous conversion to normal rhythm, VSS - Cardiology Dr Beck on board, input appreciated - started on xarelto - surgical management per Ortho - pain management - continue with home meds - f/u labs in am - DVT prophylaxis with ASA 325mg BID - PT/OT consult, f/u recommendations - rest of plan as ordered Case seen and examined with Dr Reno
--- NOTE | 2018-08-30 17:01 | CARD ---
APPROVED REPORT Date of service: 08/30/2018 EKG Measurement Heart [id number] <Conclusion> Atrial fibrillation with rapid ventricular response with premature ventricular complexes Incomplete right bundle branch block ST & T wave abnormality, consider anterior ischemia Abnormal ECG
== END 2018-08-30 10:30 | disposition short-term general hospital (02) | DRG 561 ==
LOC: H.TCU 19:25
PROVIDERS: ADMIT Family Medicine; ATTEND Family Medicine
PROC: F08Z1FZ Dressing Techniques Treatment using Assistive, Adaptive, Supportive or Protective Equipment (ICD-10-PCS; principal; 2018-08-29)
DX: Z47.1 Aftercare following joint replacement surgery (principal); Z96.652 Presence of left artificial knee joint; Z96.642 Presence of left artificial hip joint; I48.91 Unspecified atrial fibrillation; N40.0 Benign prostatic hyperplasia without lower urinary tract symptoms; E78.5 Hyperlipidemia, unspecified; E78.00 Pure hypercholesterolemia, unspecified; I12.9 Hypertensive chronic kidney disease with stage 1 through stage 4 chronic kidney disease, or unspecified chronic kidney disease; N18.9 Chronic kidney disease, unspecified; H40.9 Unspecified glaucoma; H26.9 Unspecified cataract

== ENCOUNTER 2018-08-30 10:34 | Inpatient (IN) | payer OTHER, MEDICARE ==
[2018-08-30 10:35] VITALS: PULSE 124
[2018-08-30 10:47] VITALS: BMI 31.8
--- NOTE | 2018-08-30 11:19 | ED PDOC ---
HPI: General Adult Time Seen by Provider: 08/30/18 10:43 Chief Complaint (Nursing): Palpitations Chief Complaint (Provider): rapid afib found on EKG History Per: Patient History/Exam Limitations: no limitations Onset/Duration Of Symptoms: Unknown Current Symptoms Are (Timing): Intermittent Episodes Severity: Moderate Recently: Hospitalized Additional Complaint(s): 72yo male arrives from TCU unit for rapid Afib found on routine EKG ordered by his keno dealer Dr Beck. Patient post op L knee replacement several days ago. He denies current or recent chest pain, SOB, dizziness or weakness. States had Afib post op >1 year ago after another orthopedic procedure was on anticoagulants but now off for awhile. Per Dr Beck had cardiac cath at [facility], negative, on last episode Afib. Past Medical History Reviewed: Historical Data, Nursing Documentation, Vital Signs Vital Signs: Last Vital Signs Temp 97.9 F 08/30/18 10:47 Pulse 88 08/30/18 10:47 Resp 19 08/30/18 10:47 BP 149/88 08/30/18 10:47 Pulse Ox 98 08/30/18 10:47 - Medical History PMH: Anemia, Arthritis (both knees), Atrial Fibrillation, CAD, Cardia Arrhythmia, Gall Bladder Disease (gallstones), HTN, Hypercholesterolemia, Kidney Stones (LEFT), Chronic Kidney Disease Denies: HIV, Rheumatoid Arthritis - Surgical History Surgical History: Endoscopy Other surgeries: several orthopedic procedures - Living Arrangements Living Arrangements: With Family - Social History Current smoker - smoking cessation education provided: No - Home Medications Home Medications: Ambulatory Orders Medication Instructions Recorded oxyCODONE [oxyCONTIN Extended 10 mg PO Q12 08/22/17 Release Tab] oxyCODONE/Acetaminophen [Percocet 1 tab PO Q4 PRN 08/22/17 5/325 mg Tab] Aspirin [Aspirin EC] 325 mg PO Q12 #60 tablet. 08/31/17 Atorvastatin [Lipitor] 20 mg PO HS #30 tab 08/31/17 Celecoxib [celeBREX] 100 mg PO Q12 #60 cap 08/31/17 Latanoprost 0.005% Opht [Xalatan 1 drop OU HS #1 bottle 08/31/17 Opht] Lidocaine 5% [Lidoderm] 1 ea TD DAILY #30 patch 08/31/17 Lisinopril [Zestril] 10 mg PO DAILY #30 tab 08/31/17 Tamsulosin [Flomax] 0.4 mg PO HS #30 cap 08/31/17 hydroCHLOROthiazide [Microzide] 12.5 mg PO DAILY #30 cap 08/31/17 Docusate [Colace] 100 mg PO TID cap 08/29/18 Pantoprazole [Protonix EC Tab] 40 mg PO DAILY ect 08/29/18 - Allergies Allergies/Adverse Reactions: Allergies Allergy/AdvReac Type Severity Reaction Status Date / Time No Known Allergies Allergy Verified 08/29/18 19:16 Review of Systems Constitutional: Negative for: Fever Cardiovascular: Negative for: Chest Pain, Palpitations Respiratory: Negative for: Cough, Shortness of Breath Gastrointestinal: Negative for: Abdominal Pain Genitourinary Male: Negative for: Dysuria Musculoskeletal: Positive for: Leg Pain. Negative for: Neck Pain, Arm Pain, Foot Pain Skin: Negative for: Rash, Lesions, Jaundice Neurological: Negative for: Weakness, Headache, Dizziness Psych: Negative for: Suicidal ideation Physical Exam - Reviewed Nursing Documentation Reviewed: Yes Vital Signs Reviewed: Yes - Physical Exam Appears: Positive for: Well, Non-toxic, No Acute Distress Head Exam: Positive for: ATRAUMATIC, NORMAL INSPECTION, NORMOCEPHALIC Skin: Positive for: Normal Color, Warm, DRY Eye Exam: Positive for: EOMI, Normal appearance, PERRL ENT: Positive for: Normal ENT Inspection Neck: Positive for: Normal, Painless ROM Cardiovascular/Chest: Positive for: Regular Rate, Rhythm Respiratory: Positive for: CNT, Normal Breath Sounds Gastrointestinal/Abdominal: Positive for: Normal Exam, Soft Back: Positive for: Normal Inspection Extremity: Positive for: Tenderness, Other (L knee in ALFREDO wrap) Neurologic/Psych: Positive for: Alert, Oriented - ECG ECG: Positive for: Interpreted By Me ECG Rhythm: Positive for: Sinus Rhythm, Nonspecific Changes Rate: 84 O2 Sat by Pulse Oximetry: 98 Pulse Ox Interpretation: Normal Medical Decision Making Medical Decision Making: EKG from TCU reviewed Afib with RVR Spontaneously converted to sinus in ED Dr Beck saw patient requested admit tele he will place further orders, concern for sick sinus syndrome. Admit dr Reno Disposition - Disposition
[2018-08-30 11:21] LABS: BASO % 0.5 % (0.0-2.0); EOS # 0.2 K/uL (0.0-0.7); EOS % 3.4 % (0.0-4.0); HEMOGLOBIN 10.2 g/dL (12.0-18.0); LYMPH # 1.1 K/uL (1.0-4.3); LYMPH % 21.8 % (20.0-40.0); MEAN PLATELET VOLUME 7.6 fl (7.2-11.7); MONO # 0.7 K/uL (0.0-0.8); NEUT # 3.2 K/uL (1.8-7.0); NEUT % 61.3 % (50.0-75.0); RBC 3.09 Mil/uL (4.40-5.90); RED CELL DISTRIBUTION WIDTH 13.3 % (11.5-14.5); WHITE BLOOD COUNT 5.2 K/uL (4.8-10.8)
[2018-08-30 11:28] LABS: ALBUMIN 3.4 g/dL (3.5-5.0); ALT/SGPT 28 U/L (21-72); AST/SGOT 29 U/L (17-59); BLOOD UREA NITROGEN 16 mg/dl (9-20); CALCIUM 8.6 mg/dL (8.4-10.2); GFR NON-AFRICAN AMERICAN > 60
--- NOTE | 2018-08-30 11:36 | CP.PCM.CON ---
History of Present Illness - History of Present Illness History of Present Illness: This 72-year-old man who underwent a total knee replacement on the left side 3 days back was found to be in atrial fibrillation this morning immediately following his physical therapy session which she had tolerated quite well. His a long- standing hypertensive with a history of dyslipidemia who was never suffered a myocardial infarction and has never had congestive cardiac failure. The patient had had a bout of atrial fibrillation approximately 3 years back following surgery for hip replacement. While in atrial fibrillation the patient was able to lie virtually flat and can carry on a conversation and had a heart rate of 130 bpm irregularly irregular and a blood pressure of 118/70 mmHg without any evidence of congestive cardiac failure. The patient has had a mild degree of sinus bradycardia for couple of years which has been documented on electro-cardiograms. This has not produced any symptoms. Physical examination in the emergency room shows a middle aged man who is lying virtually flat in bed and breathes at 14-16 breaths per minute and has a heart rate of 90 bpm and regular. Telemetry shows regular sinus rhythm with rare isolated premature atrial beats. His blood pressure was 118/70 mmHg. His jugular venous pressure was not elevated there was no pedal edema. Surgical wound was clean and was bandaged with clean Eugene bandage. The apex was not palpable the first and second heart sounds are normal there was no murmur or gallop. There were no rales. His electrocardiogram in the emergency room showed sinus rhythm with incomplete right bundle branch block. An electrocardiogram recorded early this morning on seventh floor showed atrial fibrillation at 134 bpm with an incomplete right bundle branch block. His recent labs show a preoperative hemoglobin of 13.6 g which yesterday was 9.5 g. The rest of his labs were noted. Impression: Transient atrial fibrillation in a patient with mild sinus bradycardia. History of atrial fibrillation in the past. Status post total knee replacement Lt side. Hypertension and dyslipidemia. The patient has spontaneously converted to sinus rhythm and is hemodynamically stable. Intermittent atrial fibrillation with periods of sinus bradycardia strongly suggest the possibility of evolving sick sinus syndrome. I have explained this to him and his . The patient needs to be chronically anticoagulated given the fact that the patient periodically develops atrial fibrillation. Past Patient History - Infectious Disease Hx of Infectious Diseases: None - Tetanus Immunizations Tetanus Immunization: Unknown - Past Medical History & Family History Past Medical History?: Yes - Past Social History Smoking Status: Never Smoked - CARDIAC Hx Atrial Fibrillation: Yes Hx Cardia Arrhythmia: Yes Hx Hypercholesterolemia: Yes Hx Hypertension: Yes - PULMONARY Hx Respiratory Disorders: No - NEUROLOGICAL Hx Neurological Disorder: No - HEENT Hx HEENT Problems: Yes Hx Cataracts: Yes (both) Hx Glaucoma: Yes (both) Other/Comment: detached retina - RENAL Hx Chronic Kidney Disease: Yes Hx Kidney Stones: Yes (LEFT) - ENDOCRINE/METABOLIC Hx Endocrine Disorders: No - HEMATOLOGICAL/ONCOLOGICAL Hx Anemia: Yes Hx Human Immunodeficiency Virus (HIV): No - INTEGUMENTARY Hx Dermatological Problems: Yes Hx Basil Cell: Yes - MUSCULOSKELETAL/RHEUMATOLOGICAL Hx Arthritis: Yes (both knees) Hx Rheumatoid Arthritis: No - GASTROINTESTINAL Hx Gall Bladder Disease: Yes (gallstones) - GENITOURINARY/GYNECOLOGICAL Hx Genitourinary Disorders: No Other/Comment: BPH - PSYCHIATRIC Hx Psychophysiologic Disorder: No Hx Emotional Abuse: No Hx Physical Abuse: No Hx Substance Use: No - SURGICAL HISTORY Hx Surgeries: Yes Hx Cataract Extraction: Yes (BILATERAL) Hx Cardiac Catheterization: Yes Hx Eye Surgery: Yes (left eye retina detachment) Hx Joint Replacement: Yes (BILATERAL HIP) Hx Musculoskeletal Surgery: Yes (LUMBAR DISECTOMY 2003) Hx Orthopedic Surgery: Yes (s/p right TKR) Other/Comment: EPIDURALS X3, BILATERAL THR, 2015 - ANESTHESIA Hx Anesthesia: Yes Hx Anesthesia Reactions: No Hx Malignant Hyperthermia: No Meds Allergies/Adverse Reactions: Allergies Allergy/AdvReac Type Severity Reaction Status Date / Time No Known Allergies Allergy Verified 08/29/18 19:16 Results - Vital Signs Recent Vital Signs: Last Vital Signs Temp 97.9 F 08/30/18 10:47 Pulse 84 08/30/18 11:21 Resp 19 08/30/18 10:47 BP 149/88 08/30/18 10:47 Pulse Ox 98 08/30/18 11:21 - Labs Result Diagrams: 08/30/18 11:00 08/30/18 11:00 Labs: Laboratory Results - last 24 hr 08/30/18 08/30/18 11:00 11:00 WBC 5.2 RBC 3.09 L Hgb 10.2 L Hct 30.0 L MCV 97.0 H MCH 33.0 H MCHC 34.0 RDW 13.3 Plt Count 153 MPV 7.6 Neut % (Auto) 61.3 Lymph % (Auto) 21.8 Henderson % (Auto) 13.0 H Eos % (Auto) 3.4 Baso % (Auto) 0.5 Neut # (Auto) 3.2 Lymph # (Auto) 1.1 Henderson # (Auto) 0.7 Eos # (Auto) 0.2 Baso # (Auto) 0.0 Sodium 138 Potassium 3.6 Chloride 99 Carbon Dioxide 34 H Anion Gap 9 L BUN 16 Creatinine 0.9 Est GFR ( Amer) > 60 Est GFR (Non-Af Amer) > 60 Random Glucose 129 H Calcium 8.6 Total Bilirubin 2.0 H AST 29 ALT 28 Alkaline Phosphatase 55 Total Protein 6.7 Albumin 3.4 L D Globulin 3.3 Albumin/Globulin Ratio 1.0
[2018-08-30 12:03] LABS: INR 1.1; PROTHROMBIN TIME 12.3 Seconds (9.8-13.1)
[2018-08-30 12:06] LABS: PARTIAL THROMBOPLASTIN TIME 27.8 Seconds (25.6-37.1)
--- NOTE | 2018-08-30 12:38 | RAD ---
Date of service: 08/30/2018 HISTORY: SOB COMPARISON: 08/01/2018. FINDINGS: LUNGS: No active pulmonary disease. PLEURA: No significant pleural effusion identified, no pneumothorax apparent. CARDIOVASCULAR: Atherosclerotic calcifications identified primarily aortic arch. No radiographic findings to suggest acute or significant cardiovascular disease. OSSEOUS STRUCTURES: No significant abnormalities. VISUALIZED UPPER ABDOMEN: Normal. OTHER FINDINGS: None. IMPRESSION: No active disease. No significant interval change compared to the prior examination(s).
--- NOTE | 2018-08-30 16:58 | CARD ---
APPROVED REPORT Date of service: 08/30/2018 EKG Measurement Heart [id number] <Conclusion> Sinus rhythm with 1st degree AV block Nonspecific intraventricular conduction delay Borderline ECG
[2018-08-30] MEDS: Oxycodone/Acetaminophen 5/325 mg Tab PO PRN (18:04)
[2018-08-30] MEDS: oxyCODONE 10 mg ER Tab (oxyCONTIN) PO SCH (21:37)
[2018-08-31] MEDS: Pantoprazole 40 mg EC Tab PO SCH (08:42)
[2018-08-31] MEDS: oxyCODONE 10 mg ER Tab (oxyCONTIN) PO SCH ×2 (08:44→21:22)
[2018-08-31] MEDS: Lidocaine 5% Patch TD SCH (12:14)
--- NOTE | 2018-08-31 12:32 | CP.PCM.PN ---
Subjective - Date & Time of Evaluation Date of Evaluation: 08/31/18 Time of Evaluation: 11:50 - Subjective Subjective: Has remained symptom free over last 24 hrs Telemetry shows intermittent A Fib at rates up to 120-130 BPM, spontaneouly reverting to sinus rhythm again BP 120/70 mm Hg No signs of CHF Has noticed mild blood tinged urine since starting Xarelto Has a H/O urinary calculous Has BPH with LUTS Will start on a small dose of beta litzy to control HR when in A Fib Getting Urine C/S Spoke with pt and at length re die reamer management of A Fib Objective - Vital Signs/Intake and Output Vital Signs (last 24 hours): Temp Pulse Resp BP Pulse Ox 97.9 F 87 18 122/70 97 08/31/18 12:16 08/31/18 12:16 08/31/18 12:16 08/31/18 12:16 08/31/18 12:16 - Medications Medications: Current Medications Atorvastatin Calcium (Lipitor) 20 mg PO HS [facility] Last Admin: 08/30/18 21:37 Dose: 20 mg Docusate Sodium (Colace) 100 mg PO TID [facility] Last Admin: 08/31/18 08:41 Dose: 100 mg Hydrochlorothiazide (Microzide) 12.5 mg PO DAILY [facility] Last Admin: 08/31/18 08:41 Dose: 12.5 mg Influenza Virus Vaccine (Afluria Quad (Pf) 1252-2706) 60 mcg IM .ONCE ONE Stop: 09/02/18 09:01 Lidocaine (Lidoderm) 1 ea TD DAILY [facility] Last Admin: 08/31/18 12:14 Dose: Not Given Lisinopril (Zestril) 10 mg PO DAILY [facility] Last Admin: 08/31/18 08:42 Dose: 10 mg Oxycodone HCl (Oxycontin Extended Release Tab) 10 mg PO Q12 [facility] Stop: 09/02/18 21:01 Last Admin: 08/31/18 08:44 Dose: 10 mg Oxycodone/Acetaminophen (Percocet 5/325 Mg Tab) 1 tab PO Q4 PRN PRN Reason: Pain, Moderate (4-10) Stop: 09/02/18 13:13 Last Admin: 08/30/18 18:04 Dose: 1 tab Pantoprazole Sodium (Protonix Ec Tab) 40 mg PO DAILY [facility] Last Admin: 08/31/18 08:42 Dose: 40 mg Rivaroxaban (Xarelto) 20 mg PO QD5 [facility]; Protocol Last Admin: 08/30/18 18:02 Dose: 20 mg Tamsulosin HCl (Flomax) 0.4 mg PO HS [facility] Last Admin: 08/30/18 21:37 Dose: 0.4 mg - Labs Labs: 08/30/18 11:00 08/30/18 11:00 PT 12.3 Seconds (9.8-13.1) 08/30/18 11:00 INR 1.1 08/30/18 11:00 APTT 27.8 Seconds (25.6-37.1) 08/30/18 11:00
[2018-08-31 15:01] LABS: SQUAMOUS EPITHIAL 1 /hpf (0-5); URINE BILIRUBIN NEGATIVE (NEGATIVE); URINE BLOOD LARGE (NEGATIVE); URINE CLARITY SLIGHTY-CLOUDY (Clear); URINE COLOR YELLOW (YELLOW); URINE GLUCOSE (UA) NEG (Normal); URINE LEUKOCYTE ESTERASE NEG Leu/uL (Negative); URINE PROTEIN NEGATIVE (NEGATIVE)
--- NOTE | 2018-09-01 07:47 | CP.PCM.HP ---
<Evan Lentz - Last Filed: 09/01/18 07:50> History of Present Illness - History of Present Illness History of Present Illness: 72 yo male patient with pmhx of osteoarthritis, Afib, BPH, HLD, and HTN admitted POD 3 s/p left total knee replacement was found to be in atrial fibrillation this morning immediately following his physical therapy session. The patient reports a previous episode of atrial fibrillation 3 years back following surgery for hip replacement. Currently no on anticoagulation. He denies current or recent chest pain, SOB, dizziness or weakness. The patient has spontaneously converted to sinus rhythm and is hemodynamically stable. Will admit to Tele. Dr Beck on board. PMHx: Afib, HLD, HTN, BPH PSHx: Hip replacement x2, cataract, glaucoma and back surgery FH: Father due to pancreas and liver ca. Meds: see jacek SH: never smoker, denies drinking and illicit drug use All: NKDA Present on Admission - Present on Admission Any Indicators Present on Admission: No Review of Systems - Review of Systems All systems: reviewed and no additional remarkable complaints except (HPI) Past Patient History - Infectious Disease Hx of Infectious Diseases: None - Tetanus Immunizations Tetanus Immunization: Unknown - Past Medical History & Family History Past Medical History?: Yes - Past Social History Smoking Status: Former Smoker - CARDIAC Hx Cardiac Disorders: Yes - PULMONARY Hx Respiratory Disorders: No - NEUROLOGICAL Hx Neurological Disorder: No - HEENT Hx HEENT Problems: Yes - RENAL Hx Chronic Kidney Disease: Yes Hx Kidney Stones: Yes - ENDOCRINE/METABOLIC Hx Endocrine Disorders: No - HEMATOLOGICAL/ONCOLOGICAL Hx AIDS: No Hx Anemia: Yes Hx Human Immunodeficiency Virus (HIV): No - INTEGUMENTARY Hx Dermatological Problems: Yes - MUSCULOSKELETAL/RHEUMATOLOGICAL Hx Arthritis: Yes (both knees) Hx Falls: Yes Hx Rheumatoid Arthritis: No - GASTROINTESTINAL Hx Gall Bladder Disease: Yes (gallstones) - GENITOURINARY/GYNECOLOGICAL Hx Genitourinary Disorders: No - PSYCHIATRIC Hx Psychophysiologic Disorder: No Hx Substance Use: No - SURGICAL HISTORY Hx Surgeries: Yes Hx Cataract Extraction: Yes (BILATERAL) Hx Cardiac Catheterization: Yes Hx Eye Surgery: Yes (left eye retina detachment) Hx Joint Replacement: Yes (BILATERAL HIP) Hx Musculoskeletal Surgery: Yes (LUMBAR DISECTOMY 2003) Hx Orthopedic Surgery: Yes (s/p right TKR) Other/Comment: EPIDURALS X3, BILATERAL THR, 2015 - ANESTHESIA Hx Anesthesia: Yes Hx Anesthesia Reactions: No Hx Malignant Hyperthermia: No Meds Allergies/Adverse Reactions: Allergies Allergy/AdvReac Type Severity Reaction Status Date / Time No Known Allergies Allergy Verified 08/29/18 19:16 Physical Exam - Constitutional Appears: No Acute Distress - Head Exam Head Exam: NORMAL INSPECTION - Eye Exam Eye Exam: EOMI, PERRL - Respiratory Exam Respiratory Exam: Clear to Auscultation Bilateral. absent: Rhonchi, Wheezes - Cardiovascular Exam Cardiovascular Exam: Tachycardia, Irregular Rhythm - GI/Abdominal Exam GI & Abdominal Exam: Normal Bowel Sounds, Soft. absent: Distended, Tenderness - Extremities Exam Extremities exam: Negative for: calf tenderness, pedal edema Additional comments: Dressing in place, clean and dry - Neurological Exam Neurological exam: Alert, CN II-XII Intact, Oriented x3 - Skin Skin Exam: Dry, Warm Results - Vital Signs Recent Vital Signs: Last Vital Signs Temp 98.2 F 09/01/18 05:00 Pulse 68 09/01/18 05:00 Resp 20 09/01/18 05:00 BP 131/87 09/01/18 05:00 Pulse Ox 97 09/01/18 05:00 - Labs Result Diagrams: 08/30/18 11:00 08/30/18 11:00 Labs: Laboratory Results - last 24 hr 08/31/18 13:50 Urine Color Yellow Urine Clarity Slighty-cloudy Urine pH 5.0 Ur Specific [place] 1.016 Urine Protein Negative Urine Glucose (UA) Neg Urine Ketones Negative Urine Blood Large Urine Nitrate Negative Urine Bilirubin Negative Urine Urobilinogen 4.0 Ur Leukocyte Esterase Neg Urine RBC (Auto) 94 H Urine Microscopic WBC 3 Ur Squamous Epith Cells 1 Assessment & Plan - Assessment and Plan (Free Text) Assessment: 72 yo male patient with pmhx of osteoarthritis, Afib, BPH, HLD, and HTN POD 3 s/p left total knee replacement with Afib with RVR Plan: - denies CP or SOB - spontaneous conversion to normal rhythm, VSS - Cardiology Dr Beck on board, input appreciated - started on xarelto - surgical management per Ortho - pain management - continue with home meds - f/u labs in am - DVT prophylaxis with ASA 325mg BID - PT/OT consult, f/u recommendations - rest of plan as ordered Case seen and examined with Dr Reno <Nanda Reno - Last Filed: 09/02/18 07:28> Results - Vital Signs Recent Vital Signs: Last Vital Signs Temp 98 F 09/02/18 04:39 Pulse 79 09/02/18 04:39 Resp 20 09/02/18 04:39 BP 116/71 09/02/18 04:39 Pulse Ox 96 09/02/18 04:39 - Labs Result Diagrams: 08/30/18 11:00 08/30/18 11:00 Assessment & Plan - Assessment and Plan (Free Text) Plan: I was present during evaluation and discussed with Dr oconnor re plans of care and tx. nanda Reno M.D.
[2018-09-01] MEDS: Oxycodone/Acetaminophen 5/325 mg Tab PO PRN (08:05)
[2018-09-01] MEDS: Pantoprazole 40 mg EC Tab PO SCH (08:51)
[2018-09-01] MEDS: oxyCODONE 10 mg ER Tab (oxyCONTIN) PO SCH ×2 (08:51→21:28)
[2018-09-01] MEDS: Lidocaine 5% Patch TD SCH (08:52)
--- NOTE | 2018-09-01 09:23 | CP.PCM.PN ---
Subjective - Date & Time of Evaluation Date of Evaluation: 09/01/18 Time of Evaluation: 09:15 - Subjective Subjective: Has been fairly symptom free over last 24 hrs Has excercised his leg in bed and walked to the BR as well as with PT yesterday Denies any palpitations or dizzy spells (spent most of the day in the chair) Telemetry shows slowes HR 45 BPM during sleep at 2:30 AM No signs of CHF A Urology consult has been called re: hematuria on Xarelto Has't had any further hematuria Objective - Vital Signs/Intake and Output Vital Signs (last 24 hours): Temp Pulse Resp BP Pulse Ox 98.2 F 104 H 18 125/82 98 09/01/18 08:12 09/01/18 08:50 09/01/18 08:12 09/01/18 08:50 09/01/18 08:12 - Medications Medications: Current Medications Atorvastatin Calcium (Lipitor) 20 mg PO HS [facility] Last Admin: 08/31/18 21:19 Dose: 20 mg Docusate Sodium (Colace) 100 mg PO TID [facility] Last Admin: 09/01/18 08:50 Dose: 100 mg Influenza Virus Vaccine (Afluria Quad (Pf) [id number]) 60 mcg IM .ONCE ONE Stop: 09/02/18 09:01 Lidocaine (Lidoderm) 1 ea TD DAILY [facility] Last Admin: 09/01/18 08:52 Dose: Not Given Lisinopril (Zestril) 10 mg PO DAILY [facility] Last Admin: 09/01/18 08:50 Dose: 10 mg Metoprolol Tartrate (Lopressor) 12.5 mg PO Q12 [facility] Last Admin: 09/01/18 08:50 Dose: 12.5 mg Oxycodone HCl (Oxycontin Extended Release Tab) 10 mg PO Q12 [facility] Stop: 09/02/18 21:01 Last Admin: 09/01/18 08:51 Dose: Not Given Pantoprazole Sodium (Protonix Ec Tab) 40 mg PO DAILY [facility] Last Admin: 09/01/18 08:51 Dose: 40 mg Rivaroxaban (Xarelto) 20 mg PO QD5 [facility]; Protocol Last Admin: 08/31/18 16:33 Dose: 20 mg Tamsulosin HCl (Flomax) 0.4 mg PO [facility] Last Admin: 08/31/18 21:19 Dose: 0.4 mg Tramadol HCl (Ultram) 50 mg PO Q8 PRN PRN Reason: Pain, severe (8-10) - Labs Labs: 08/30/18 11:00 08/30/18 11:00 PT 12.3 Seconds (9.8-13.1) 08/30/18 11:00 INR 1.1 08/30/18 11:00 APTT 27.8 Seconds (25.6-37.1) 08/30/18 11:00
--- NOTE | 2018-09-01 14:09 | CP.PCM.PN ---
Subjective - Date & Time of Evaluation Date of Evaluation: 08/31/18 Time of Evaluation: 17:30 - Subjective Subjective: Patient is doing well Still with some pain Has no chest pain or SOB. Objective - Vital Signs/Intake and Output Vital Signs (last 24 hours): Temp Pulse Resp BP Pulse Ox 97.8 F 78 18 111/72 97 09/01/18 11:57 09/01/18 11:57 09/01/18 11:57 09/01/18 11:57 09/01/18 11:57 - Medications Medications: Current Medications Atorvastatin Calcium (Lipitor) 20 mg PO HS [facility] Last Admin: 08/31/18 21:19 Dose: 20 mg Docusate Sodium (Colace) 100 mg PO TID [facility] Last Admin: 09/01/18 08:50 Dose: 100 mg Influenza Virus Vaccine (Afluria Quad (Pf) [id number]) 60 mcg IM .ONCE ONE Stop: 09/02/18 09:01 Lidocaine (Lidoderm) 1 ea TD DAILY [facility] Last Admin: 09/01/18 08:52 Dose: Not Given Lisinopril (Zestril) 10 mg PO DAILY [facility] Last Admin: 09/01/18 08:50 Dose: 10 mg Metoprolol Tartrate (Lopressor) 12.5 mg PO Q12 [facility] Last Admin: 09/01/18 08:50 Dose: 12.5 mg Oxycodone HCl (Oxycontin Extended Release Tab) 10 mg PO Q12 [facility] Stop: 09/02/18 21:01 Last Admin: 09/01/18 08:51 Dose: Not Given Pantoprazole Sodium (Protonix Ec Tab) 40 mg PO DAILY [facility] Last Admin: 09/01/18 08:51 Dose: 40 mg Rivaroxaban (Xarelto) 20 mg PO QD5 [facility]; Protocol Last Admin: 08/31/18 16:33 Dose: 20 mg Tamsulosin HCl (Flomax) 0.4 mg PO HS [facility] Last Admin: 08/31/18 21:19 Dose: 0.4 mg Tramadol HCl (Ultram) 50 mg PO Q8 PRN PRN Reason: Pain, severe (8-10) Last Admin: 09/01/18 09:53 Dose: 50 mg - Labs Labs: 08/30/18 11:00 08/30/18 11:00 PT 12.3 Seconds (9.8-13.1) 08/30/18 11:00 INR 1.1 08/30/18 11:00 APTT 27.8 Seconds (25.6-37.1) 08/30/18 11:00 - Head Exam Head Exam: NORMAL INSPECTION - Eye Exam Eye Exam: Normal appearance - ENT Exam ENT Exam: Mucous Membranes Moist - Respiratory Exam Respiratory Exam: Clear to Ausculation Bilateral - Cardiovascular Exam Cardiovascular Exam: Irregular Rhythm - GI/Abdominal Exam GI & Abdominal Exam: Normal Bowel Sounds - Neurological Exam Neurological Exam: CN II-XII Intact Assessment and Plan (1) Atrial fibrillation Status: Acute (2) Osteoarthritis of left knee Status: Acute (3) Hypertension Status: Chronic (4) Status post total left knee replacement Status: Acute - Assessment and Plan (Free Text) Plan: cont meds cont tx cont Pt repeat ekg
--- NOTE | 2018-09-01 14:10 | CP.PCM.PN ---
Subjective - Date & Time of Evaluation Date of Evaluation: 09/01/18 Time of Evaluation: 14:09 - Subjective Subjective: Patient is doing well. Has no chest pain or SOB. Has minimal pain was started on xarelto and had slight hematuria yesterday. Objective - Vital Signs/Intake and Output Vital Signs (last 24 hours): Temp Pulse Resp BP Pulse Ox 97.8 F 78 18 111/72 97 09/01/18 11:57 09/01/18 11:57 09/01/18 11:57 09/01/18 11:57 09/01/18 11:57 - Medications Medications: Current Medications Atorvastatin Calcium (Lipitor) 20 mg PO HS [facility] Last Admin: 08/31/18 21:19 Dose: 20 mg Docusate Sodium (Colace) 100 mg PO TID [facility] Last Admin: 09/01/18 08:50 Dose: 100 mg Influenza Virus Vaccine (Afluria Quad (Pf) [id number]) 60 mcg IM .ONCE ONE Stop: 09/02/18 09:01 Lidocaine (Lidoderm) 1 ea TD DAILY [facility] Last Admin: 09/01/18 08:52 Dose: Not Given Lisinopril (Zestril) 10 mg PO DAILY [facility] Last Admin: 09/01/18 08:50 Dose: 10 mg Metoprolol Tartrate (Lopressor) 12.5 mg PO Q12 [facility] Last Admin: 09/01/18 08:50 Dose: 12.5 mg Oxycodone HCl (Oxycontin Extended Release Tab) 10 mg PO Q12 [facility] Stop: 09/02/18 21:01 Last Admin: 09/01/18 08:51 Dose: Not Given Pantoprazole Sodium (Protonix Ec Tab) 40 mg PO DAILY [facility] Last Admin: 09/01/18 08:51 Dose: 40 mg Rivaroxaban (Xarelto) 20 mg PO QD5 [facility]; Protocol Last Admin: 08/31/18 16:33 Dose: 20 mg Tamsulosin HCl (Flomax) 0.4 mg PO HS [facility] Last Admin: 08/31/18 21:19 Dose: 0.4 mg Tramadol HCl (Ultram) 50 mg PO Q8 PRN PRN Reason: Pain, severe (8-10) Last Admin: 09/01/18 09:53 Dose: 50 mg - Labs Labs: 08/30/18 11:00 08/30/18 11:00 PT 12.3 Seconds (9.8-13.1) 08/30/18 11:00 INR 1.1 08/30/18 11:00 APTT 27.8 Seconds (25.6-37.1) 08/30/18 11:00 - Eye Exam Eye Exam: Normal appearance - Respiratory Exam Respiratory Exam: Clear to Ausculation Bilateral - GI/Abdominal Exam GI & Abdominal Exam: Soft - Neurological Exam Neurological Exam: Awake, Oriented x3 Assessment and Plan (1) Status post total left knee replacement Status: Acute (2) Anemia Status: Acute (3) Atrial fibrillation Status: Acute (4) Osteoarthritis of left knee Status: Acute (5) Hypertension Status: Chronic - Assessment and Plan (Free Text) Plan: Cont meds Cont tx Cont PT pain meds
[2018-09-02 08:12] VITALS: RESP 18
--- NOTE | 2018-09-02 08:24 | CP.PCM.PN ---
Subjective - Date & Time of Evaluation Date of Evaluation: 09/02/18 Time of Evaluation: 08:10 - Subjective Subjective: The patient has no particular symptoms over last 24 hours. He has exercised his knee while in bed and walked to the bathroom with a walker. He denies any palpitations or sense of lightheadedness. Telemetry shows essentially sinus rhythm with occasional premature atrial beats. His heart rate ranges between 60 bpm and 110 bpm. He has been on 12.5 mg of metoprolol twice a day. His blood pressure is 118/74 mmHg. His jugular venous pressure was not elevated and there was no edema over his lower extremities. Surgical wound continues to heal without any evidence of discharge or induration. Patient denies any chills or fever. His electrocardiogram today shows sinus rhythm with incomplete right bundle branch block, a pattern seen on preop EKGs as well. His labs are still awaited. I have requested an echocardiogram to assess his left ventricular systolic function. The patient should return to transitional care unit and physical therapy should resume where it was interrupted by detection of atrial fibrillation 3 days back. The patient is hemodynamically stable at this juncture and tolerates 12.5 mg of metoprolol twice a day without any significant bradycardia. Objective - Vital Signs/Intake and Output Vital Signs (last 24 hours): Temp Pulse Resp BP Pulse Ox 98.4 F 81 18 118/73 96 09/02/18 08:00 09/02/18 08:00 09/02/18 08:00 09/02/18 08:00 09/02/18 08:00 - Medications Medications: Current Medications Atorvastatin Calcium (Lipitor) 20 mg PO HS [facility] Last Admin: 09/01/18 21:28 Dose: 20 mg Docusate Sodium (Colace) 100 mg PO TID [facility] Last Admin: 09/01/18 17:55 Dose: 100 mg Influenza Virus Vaccine (Afluria Quad (Pf) [id number]) 60 mcg IM .ONCE ONE Stop: 09/02/18 09:01 Lidocaine (Lidoderm) 1 ea TD DAILY [facility] Last Admin: 09/01/18 08:52 Dose: Not Given Lisinopril (Zestril) 10 mg PO DAILY [facility] Last Admin: 09/01/18 08:50 Dose: 10 mg Metoprolol Tartrate (Lopressor) 12.5 mg PO Q12 [facility] Last Admin: 09/01/18 21:27 Dose: 12.5 mg Nystatin (Mycostatin Cream) 1 applic TOP TID [facility] Last Admin: 09/01/18 18:00 Dose: 1 applic Oxycodone HCl (Oxycontin Extended Release Tab) 10 mg PO Q12 [facility] Stop: 09/02/18 21:01 Last Admin: 09/01/18 21:28 Dose: 10 mg Pantoprazole Sodium (Protonix Ec Tab) 40 mg PO DAILY [facility] Last Admin: 09/01/18 08:51 Dose: 40 mg Rivaroxaban (Xarelto) 20 mg PO QD5 [facility]; Protocol Last Admin: 09/01/18 17:55 Dose: 20 mg Tamsulosin HCl (Flomax) 0.4 mg PO HS [facility] Last Admin: 09/01/18 21:28 Dose: 0.4 mg Tramadol HCl (Ultram) 50 mg PO Q8 PRN PRN Reason: Pain, severe (8-10) Last Admin: 09/01/18 09:53 Dose: 50 mg - Labs Labs: 08/30/18 11:00 08/30/18 11:00 PT 12.3 Seconds (9.8-13.1) 08/30/18 11:00 INR 1.1 08/30/18 11:00 APTT 27.8 Seconds (25.6-37.1) 08/30/18 11:00
[2018-09-02 08:46] LABS: HEMOGLOBIN 9.6 g/dL (12.0-18.0); MEAN CELL VOLUME 95.8 fl (80.0-94.0); MEAN CORPUSCULAR HEMOGLOBIN 33.2 pg (27.0-31.0); MEAN CORPUSCULAR HGB CONC 34.7 g/dL (33.0-37.0); RBC 2.9 Mil/uL (4.40-5.90); RED CELL DISTRIBUTION WIDTH 13.4 % (11.5-14.5); WHITE BLOOD COUNT 4.9 K/uL (4.8-10.8)
[2018-09-02] MEDS ORDERED: Influenza Vaccine (5 YR UP)/PF 60 MCG/0.5 ML SYR IM ONE (09:00)
[2018-09-02 09:11] LABS: ALT/SGPT 33 U/L (21-72); AST/SGOT 36 U/L (17-59); BLOOD UREA NITROGEN 18 mg/dl (9-20); CALCIUM 8.3 mg/dL (8.4-10.2); GFR NON-AFRICAN AMERICAN > 60
[2018-09-02] MEDS: oxyCODONE 10 mg ER Tab (oxyCONTIN) PO SCH (09:32)
[2018-09-02] MEDS: Pantoprazole 40 mg EC Tab PO SCH (09:32)
[2018-09-02] MEDS: Lidocaine 5% Patch TD SCH (09:33)
[2018-09-02] MEDS ORDERED: Perflutren Lipid Microsphere 1.5 ML SUS IV ONE (10:30)
[2018-09-02 12:52] VITALS: BP 113/74; PULSE 70; TEMP 98.7; O2SAT 97
--- NOTE | 2018-09-02 14:54 | CARD ---
APPROVED REPORT Date of service: 09/02/2018 EKG Measurement Heart [id number] <Conclusion> Sinus rhythm with 1st degree AV block Otherwise normal ECG
--- NOTE | 2018-09-03 08:34 | CARD ---
APPROVED REPORT Date of service: 09/02/2018 EXAM: Two-dimensional and M-mode echocardiogram with Doppler and color Doppler. Other Information Quality : GoodRhythm : Atrial Fibrillation INDICATION Atrial Fibrillation M-Mode DIMENSIONS Aortic Root4.13 (2.2-3.7cm) Aortic Valve AoV Peak Znzmnccv675.7cm/sAoV VTI23.3cmAO Peak GR.7mmHg LVOT Peak Dufzkboa015.9cm/sLVOT VTI21.19cmAO Mean GR.4mmHg Mitral Valve MV E Yckcdzrv78.4cm/sMV DECEL [id number] A Zgujqguj93.8cm/s MV TXS73scJ/A ratio1.0MVA (PHT)3.59cm2 TDI Lateral E' Peak V14.47cm/sE/Lateral E'5.8E/Medial E'0.0 Tricuspid Valve TR Peak Bvqkyxow339ji/sRAP FUOJKJBV16hiNvIL Peak Gr.28mmHg [id number] LEFT VENTRICLE The left ventricle is normal size. There is normal left ventricular wall thickness. The left ventricular function is normal. LVEF is 65-70%. There is normal LV segmental wall motion. Pt in A Flutter, RIGHT VENTRICLE The right ventricle is normal size. There is normal right ventricular wall thickness. The right ventricular systolic function is normal. ATRIA The left atrium size is normal. The right atrium size is normal. AORTIC VALVE The aortic valve is normal in structure. No aortic regurgitation is present. There is no aortic valvular stenosis. MITRAL VALVE The mitral valve is normal in structure. There is no evidence of mitral valve prolapse. There is no mitral valve stenosis. There is no mitral valve regurgitation noted. TRICUSPID VALVE The tricuspid valve is normal in structure. There is mild tricuspid regurgitation. Right ventricular systolic pressure is estimated at 40 mmHg. There is mild pulmonary hypertension. PULMONIC VALVE The pulmonary valve is normal in structure. There is no pulmonic valvular regurgitation. GREAT VESSELS The aortic root is normal in size. The IVC is normal in size and collapses >50% with inspiration. PERICARDIAL EFFUSION The pericardium appears normal. <Conclusion> The echo window was poor in quality and echo enhancement was used to deleneate endocardial surface and evaluate LV wall motion. The left ventricle is normal size. There is normal left ventricular wall thickness. There is normal LV segmental wall motion. The left ventricular function is normal. LVEF is 65-70%.
--- NOTE | 2018-09-05 13:48 | CP.PCM.DIS ---
Provider - Provider Date of Admission: 08/30/18 10:52 Attending physician: Dudley Reno MD Time Spent in preparation of Discharge (in minutes): 30 Diagnosis - Discharge Diagnosis (1) Status post total left knee replacement Status: Acute (2) Anemia Status: Acute Priority: Medium (3) Atrial fibrillation Status: Acute (4) Osteoarthritis of left knee Status: Acute (5) Hypertension Status: Chronic Hospital Course - Lab Results Lab Results: Micro Results 08/31/18 13:50 Urine,Clean Catch Urine Culture - Final No Growth (<1,000 CFU/ML) Most Recent Lab Values WBC 4.9 K/uL (4.8-10.8) 09/02/18 08:38 RBC 2.90 Mil/uL (4.40-5.90) L 09/02/18 08:38 Hgb 9.6 g/dL (12.0-18.0) L 09/02/18 08:38 Hct 27.8 % (35.0-51.0) L 09/02/18 08:38 MCV 95.8 fl (80.0-94.0) H 09/02/18 08:38 MCH 33.2 pg (27.0-31.0) H 09/02/18 08:38 MCHC 34.7 g/dL (33.0-37.0) 09/02/18 08:38 RDW 13.4 % (11.5-14.5) 09/02/18 08:38 Plt Count 275 K/uL (130-400) D 09/02/18 08:38 MPV 7.6 fl (7.2-11.7) 08/30/18 11:00 Neut % (Auto) 61.3 % (50.0-75.0) 08/30/18 11:00 Lymph % (Auto) 21.8 % (20.0-40.0) 08/30/18 11:00 [place] % (Auto) 13.0 % (0.0-10.0) H 08/30/18 11:00 Eos % (Auto) 3.4 % (0.0-4.0) 08/30/18 11:00 Baso % (Auto) 0.5 % (0.0-2.0) 08/30/18 11:00 Neut # (Auto) 3.2 K/uL (1.8-7.0) 08/30/18 11:00 Lymph # (Auto) 1.1 K/uL (1.0-4.3) 08/30/18 11:00 [place] # (Auto) 0.7 K/uL (0.0-0.8) 08/30/18 11:00 Eos # (Auto) 0.2 K/uL (0.0-0.7) 08/30/18 11:00 Baso # (Auto) 0.0 K/uL (0.0-0.2) 08/30/18 11:00 PT 12.3 Seconds (9.8-13.1) 08/30/18 11:00 INR 1.1 08/30/18 11:00 APTT 27.8 Seconds (25.6-37.1) 08/30/18 11:00 Sodium 140 mmol/l (132-148) 09/02/18 08:38 Potassium 4.0 MMOL/L (3.6-5.0) 09/02/18 08:38 Chloride 102 mmol/L (98-107) 09/02/18 08:38 Carbon Dioxide 34 mmol/L (22-30) H 09/02/18 08:38 Anion Gap 8 (10-20) L 09/02/18 08:38 BUN 18 mg/dl (9-20) 09/02/18 08:38 Creatinine 0.8 mg/dl (0.8-1.5) 09/02/18 08:38 Est GFR ( Amer) > 60 09/02/18 08:38 Est GFR (Non-Af Amer) > 60 09/02/18 08:38 Random Glucose 127 mg/dL (75-110) H 09/02/18 08:38 Calcium 8.3 mg/dL (8.4-10.2) L 09/02/18 08:38 Total Bilirubin 2.1 mg/dl (0.2-1.3) H 09/02/18 08:38 AST 36 U/L (17-59) 09/02/18 08:38 ALT 33 U/L (21-72) 09/02/18 08:38 Alkaline Phosphatase 73 U/L (38-126) 09/02/18 08:38 Troponin I < 0.0120 ng/mL (0.00-0.120) 08/30/18 11:00 Total Protein 6.2 G/DL (6.3-8.2) L 09/02/18 08:38 Albumin 3.0 g/dL (3.5-5.0) L 09/02/18 08:38 Globulin 3.1 gm/dL (2.2-3.9) 09/02/18 08:38 Albumin/Globulin Ratio 1.0 (1.0-2.1) 09/02/18 08:38 Urine Color Yellow (YELLOW) 08/31/18 13:50 Urine Clarity Slighty-cloudy (Clear) 08/31/18 13:50 Urine pH 5.0 (5.0-8.0) 08/31/18 13:50 Ur Specific [place] 1.016 (1.003-1.030) 08/31/18 13:50 Urine Protein Negative mg/dL (NEGATIVE) 08/31/18 13:50 Urine Glucose (UA) Neg mg/dL (Normal) 08/31/18 13:50 Urine Ketones Negative mg/dL (NEGATIVE) 08/31/18 13:50 Urine Blood Large (NEGATIVE) 08/31/18 13:50 Urine Nitrate Negative (NEGATIVE) 08/31/18 13:50 Urine Bilirubin Negative (NEGATIVE) 08/31/18 13:50 Urine Urobilinogen 4.0 mg/dL (0.2-1.0) 08/31/18 13:50 Ur Leukocyte Esterase Neg Venita/uL (Negative) 08/31/18 13:50 Urine RBC (Auto) 94 /hpf (0-3) H 08/31/18 13:50 Urine Microscopic WBC 3 /hpf (0-5) 08/31/18 13:50 Ur Squamous Epith Cells 1 /hpf (0-5) 08/31/18 13:50 - Hospital Course Hospital Course: This is a 72 y/o male admitted to telemetry few days postop after developing rapid atrial fibrillation while doing PT at the subacute rehab. He had the same episode of atrial fib after his knee surgery 3 years ago. currently not on any anticoagulation. He had no SOB or chest pain. He was monitored at telemetry. DR Yadira Beck was called for Cardiology consult. He was kept on xarelto and and metoprolol. He remained stable for the rest of his stay and was discharged back to TCU for further PT and rehab. Discharge Exam - Head Exam Head Exam: NORMAL INSPECTION - Eye Exam Eye Exam: Normal appearance - Respiratory Exam Respiratory Exam: NORMAL BREATHING PATTERN - Cardiovascular Exam Cardiovascular Exam: Irregular Rhythm - GI/Abdominal Exam GI & Abdominal Exam: Normal Bowel Sounds - Neurological Exam Neurological exam: Altered Discharge Plan - Follow Up Plan Condition: FAIR Disposition: TRANSF TO SNF Additional Instructions: Dicharge to TCU on same meds metoprool and xarelto.
--- NOTE | 2018-09-09 16:57 | PQF ---
PROVIDER RESPONSE TEXT: Anemia due to postop blood loss REVIEWER QUERY TEXT: Anemia Type Anemia is documented in the Medical Record. Please specify the cause (includes suspected or probable cause) Such as: -- Due to acute blood loss -- Due to chronic blood loss -- Due to iron deficiency -- Due to postoperative blood loss -- Due to chronic disease -- Other, please specify The patient's Clinical Indicators include: Transferred from TCU to the ER for atrial fibrillation. Patient is s/p L knee replacement on 08/27/18 . Xarelto started on 08/30 andthen noticed mild hematuria. Query created by: Mariann Samuel on 09/02/2018 10:14 AM Electronically signed by: Dudley Reno MD 09/09/2018 4:54 PM
== END 2018-09-02 14:11 | DRG 309 ==
LOC: H.ER 10:34 → H.ERHOLD 10:52 → H.TEL 12:48
PROVIDERS: ADMIT Family Medicine; ATTEND Family Medicine
DX: I48.0 Paroxysmal atrial fibrillation (principal); D62 Acute posthemorrhagic anemia; I12.9 Hypertensive chronic kidney disease with stage 1 through stage 4 chronic kidney disease, or unspecified chronic kidney disease; I25.10 Atherosclerotic heart disease of native coronary artery without angina pectoris; R31.0 Gross hematuria; Z96.653 Presence of artificial knee joint, bilateral; M17.12 Unilateral primary osteoarthritis, left knee; I45.10 Unspecified right bundle-branch block; I49.1 Atrial premature depolarization; N18.9 Chronic kidney disease, unspecified; Z98.890 Other specified postprocedural states; E78.5 Hyperlipidemia, unspecified; E78.00 Pure hypercholesterolemia, unspecified; N40.1 Benign prostatic hyperplasia with lower urinary tract symptoms; Z96.643 Presence of artificial hip joint, bilateral; Z87.442 Personal history of urinary calculi; Z87.891 Personal history of nicotine dependence

== ENCOUNTER 2018-09-02 14:14 | Inpatient (IN) | payer OTHER ==
[2018-09-02 15:31] VITALS: RESP 20
[2018-09-02 17:32] LABS: ALBUMIN 3.6 g/dL (3.5-5.0); ALT/SGPT 29 U/L (21-72); AST/SGOT 43 U/L (17-59); BILIRUBIN,DIRECT 0.3 mg/ml (0.0-0.4); BLOOD UREA NITROGEN 18 mg/dl (9-20); GFR NON-AFRICAN AMERICAN > 60
[2018-09-02] MEDS: oxyCODONE 10 mg ER Tab (oxyCONTIN) PO SCH (21:44)
[2018-09-02] MEDS: Latanoprost 0.005% Opht SOUTION OU SCH (22:34)
[2018-09-03] MEDS: Pantoprazole 40 mg EC Tab PO SCH (08:17)
[2018-09-03] MEDS: Lidocaine 5% Patch TD SCH (08:17)
[2018-09-03] MEDS: oxyCODONE 10 mg ER Tab (oxyCONTIN) PO SCH ×2 (08:23→21:22)
--- NOTE | 2018-09-03 09:18 | CP.PCM.CON ---
History of Present Illness - History of Present Illness History of Present Illness: This 72-year-old man with a history of hypertension and dyslipidemia who has had atrial fibrillation in the past recently underwent a total knee replacement of left side and in the postopera tive period developed atrial fibrillation that required a brief period of treating him on telemetry floor. The patient never rule out any symptoms pertaining to atrial fibrillation and remained hemodynamically stable. The patient on telemetry demonstrated reached periods of atrial fibrillation that with interrupted by regular sinus rhythm. Patient consistently remained symptom free and hemodynamically stable through these 3 days of telemetry monitoring. The patient is back on transitional care unit for physical therapy. The patient has been started on a small dose of beta litzy to control his heart rate during atrial fibrillation and is taking oral anticoagulation. The patient briefly had mild hematuria which subsequently has resolved. Physical examination shows a middle aged man who is quite alert awake coherent afebrile with a pulse rate of 74 bpm and regular. His blood pressure was 140/82 mmHg. His jugular venous pressure was not elevated and there was no edema over his lower extremities. There was no sacral edema. Surgical wound was healing well. The apex was not palpable the first and second heart sounds are normal there was no murmur or gallop. There were no rales. His abdomen was soft liver and spleen were not palpable. His extremities were warm and his nailbeds were pink. There was no central or peripheral cyanosis. Impression: Transient atrial fibrillation in a patient with a long history of hypertension and dyslipidemia. Status post total knee replacement left side. I have reviewed patient's echocardiogram. It reveals well-preserved left ventricular systolic function with no significant valvular abnormality. I will follow the patient with you thank you Past Patient History - Infectious Disease Hx of Infectious Diseases: None - Tetanus Immunizations Tetanus Immunization: Unknown - Past Medical History & Family History Past Medical History?: Yes - Past Social History Smoking Status: Never Smoked - CARDIAC Hx Cardiac Disorders: Yes - PULMONARY Hx Respiratory Disorders: No - NEUROLOGICAL Hx Neurological Disorder: No - HEENT Hx HEENT Problems: Yes - RENAL Hx Chronic Kidney Disease: Yes Hx Kidney Stones: Yes - ENDOCRINE/METABOLIC Hx Endocrine Disorders: No - HEMATOLOGICAL/ONCOLOGICAL Hx AIDS: No Hx Anemia: Yes Hx Human Immunodeficiency Virus (HIV): No - INTEGUMENTARY Hx Dermatological Problems: Yes Hx Basil Cell: Yes - MUSCULOSKELETAL/RHEUMATOLOGICAL Hx Arthritis: Yes (both knees) Hx Falls: No Hx Rheumatoid Arthritis: No - GASTROINTESTINAL Hx Gall Bladder Disease: Yes (gallstones) - GENITOURINARY/GYNECOLOGICAL Hx Genitourinary Disorders: No - PSYCHIATRIC Hx Psychophysiologic Disorder: No Hx Substance Use: No - SURGICAL HISTORY Hx Surgeries: Yes Hx Cataract Extraction: Yes (BILATERAL) Hx Cardiac Catheterization: Yes Hx Eye Surgery: Yes (left eye retina detachment) Hx Joint Replacement: Yes (BILATERAL HIP) Hx Musculoskeletal Surgery: Yes (LUMBAR DISECTOMY 2003) Hx Orthopedic Surgery: Yes (s/p right TKR) Other/Comment: EPIDURALS X3, BILATERAL THR, 2015. left knee TKR on 08/27/18 - ANESTHESIA Hx Anesthesia: Yes Hx Anesthesia Reactions: No Hx Malignant Hyperthermia: No Meds Allergies/Adverse Reactions: Allergies Allergy/AdvReac Type Severity Reaction Status Date / Time No Known Allergies Allergy Unverified 09/02/18 14:19 - Medications Medications: Current Medications Atorvastatin Calcium (Lipitor) 20 mg PO HS [facility] Last Admin: 09/02/18 21:44 Dose: 20 mg Docusate Sodium (Colace) 100 mg PO TID [facility] Last Admin: 09/03/18 08:16 Dose: 100 mg Hydrocortisone (Cortizone 0.5% Cream) 1 applic TOP BID [facility] Last Admin: 09/03/18 08:16 Dose: 1 applic Latanoprost (Xalatan Opht) 1 drop OU HS [facility] Last Admin: 09/02/18 22:34 Dose: 1 drop Lidocaine (Lidoderm) 1 ea TD DAILY [facility] Last Admin: 09/03/18 08:17 Dose: 1 ea Lisinopril (Zestril) 10 mg PO DAILY [facility] Last Admin: 09/03/18 08:18 Dose: 10 mg Metoprolol Tartrate (Lopressor) 12.5 mg PO Q12 [facility] Last Admin: 09/03/18 08:17 Dose: 12.5 mg Nystatin (Mycostatin Cream) 1 applic TOP TID [facility] Last Admin: 09/03/18 08:17 Dose: 1 applic Oxycodone HCl (Oxycontin Extended Release Tab) 10 mg PO Q12 [facility] Last Admin: 09/03/18 08:23 Dose: 10 mg Pantoprazole Sodium (Protonix Ec Tab) 40 mg PO DAILY [facility] Last Admin: 09/03/18 08:17 Dose: 40 mg Rivaroxaban (Xarelto) 20 mg PO QD5 [facility]; Protocol Last Admin: 09/02/18 16:12 Dose: 20 mg Tamsulosin HCl (Flomax) 0.4 mg PO HS [facility] Last Admin: 09/02/18 21:44 Dose: 0.4 mg Tramadol HCl (Ultram) 50 mg PO Q8 PRN PRN Reason: Pain, severe (8-10) Last Admin: 09/03/18 06:59 Dose: 50 mg Results - Vital Signs Recent Vital Signs: Last Vital Signs Temp 99.0 F 09/02/18 20:32 Pulse 75 09/02/18 21:47 Resp 20 09/02/18 20:32 BP 111/72 09/02/18 21:47 Pulse Ox 95 09/02/18 20:32 - Labs Result Diagrams: 09/02/18 17:05 Labs: Laboratory Results - last 24 hr 09/02/18 17:05 Sodium 140 Potassium 4.9 Chloride 102 Carbon Dioxide 37 H Anion Gap 6 L BUN 18 Creatinine 0.9 Est GFR ( Amer) > 60 Est GFR (Non-Af Amer) > 60 Random Glucose 126 H Calcium 9.0 Total Bilirubin 2.7 H Direct Bilirubin 0.3 AST 43 ALT 29 Alkaline Phosphatase 94 Total Protein 7.2 Albumin 3.6 Globulin 3.6 Albumin/Globulin Ratio 1.0
--- NOTE | 2018-09-03 09:32 | CP.PCM.PN ---
Subjective - Date & Time of Evaluation Date of Evaluation: 09/03/18 Time of Evaluation: 09:00 - Subjective Subjective: Patient seen and examined at bedside comfortable. Pain is well controlled. Patient was transferred from [facility] due to episode of Afib following therapy. 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 He has developed rash to LLE at posterior aspect over past 3 days. Denies CP/SOB/N/V/fever/dizziness. Objective - Vital Signs/Intake and Output Vital Signs (last 24 hours): Temp Pulse Resp BP Pulse Ox 99.0 F 75 20 111/72 95 09/02/18 20:32 09/02/18 21:47 09/02/18 20:32 09/02/18 21:47 09/02/18 20:32 - Medications Medications: Current Medications Atorvastatin Calcium (Lipitor) 20 mg PO HS [facility] Last Admin: 09/02/18 21:44 Dose: 20 mg Docusate Sodium (Colace) 100 mg PO TID [facility] Last Admin: 09/03/18 08:16 Dose: 100 mg Hydrocortisone (Cortizone 0.5% Cream) 1 applic TOP BID [facility] Last Admin: 09/03/18 08:16 Dose: 1 applic Latanoprost (Xalatan Opht) 1 drop OU HS [facility] Last Admin: 09/02/18 22:34 Dose: 1 drop Lidocaine (Lidoderm) 1 ea TD DAILY [facility] Last Admin: 09/03/18 08:17 Dose: 1 ea Lisinopril (Zestril) 10 mg PO DAILY [facility] Last Admin: 09/03/18 08:18 Dose: 10 mg Metoprolol Tartrate (Lopressor) 12.5 mg PO Q12 [facility] Last Admin: 09/03/18 08:17 Dose: 12.5 mg Nystatin (Mycostatin Cream) 1 applic TOP TID [facility] Last Admin: 09/03/18 08:17 Dose: 1 applic Oxycodone HCl (Oxycontin Extended Release Tab) 10 mg PO Q12 [facility] Last Admin: 09/03/18 08:23 Dose: 10 mg Pantoprazole Sodium (Protonix Ec Tab) 40 mg PO DAILY [facility] Last Admin: 09/03/18 08:17 Dose: 40 mg Rivaroxaban (Xarelto) 20 mg PO QD5 [facility]; Protocol Last Admin: 09/02/18 16:12 Dose: 20 mg Tamsulosin HCl (Flomax) 0.4 mg PO HS [facility] Last Admin: 09/02/18 21:44 Dose: 0.4 mg Tramadol HCl (Ultram) 50 mg PO Q8 PRN PRN Reason: Pain, severe (8-10) Last Admin: 09/03/18 06:59 Dose: 50 mg - Labs Labs: 09/02/18 17:05 - Extremities Exam Additional comments: LLE: swelling to knee and thigh 2nd to surgery diffuse rash extending from thigh to calf posteriorly tenderness to anterior trejo anterior leg comp tight but compressible Dressings CDI sensation intact SP/DP/TN motor intact EHL/FHL/TA/G pedal pulses intact calves soft NT b/l Assessment and Plan (1) Status post total left knee replacement Assessment & Plan: POD#7 s/p L TKA -PT/OT WBAT -topical skin care to rash as per medicine, likely due to iron irritation from postop blood breakdown -DVT ppx -orthopedically stable -above d/w Dr. Adler in agreement Status: Acute
--- NOTE | 2018-09-03 11:22 | CP.PCM.CON ---
History of Present Illness - History of Present Illness History of Present Illness: GI Fellow PGY5 Consult Note This is a 72 yo male patient with pmhx of osteoarthritis, BPH, HLD, and HTN admitted s/p left total knee replacement was found to be in atrial fibrillation following his physical therapy session. The patient reports a previous episode of atrial fibrillation 3 years back following surgery for hip replacement. Currently no on anticoagulation. He denies current or recent chest pain, SOB, dizziness or weakness. The patient has spontaneously converted to sinus rhythm and is hemodynamically stable. GI was consulted for change in bowel color and elevated Tbili. Pt reports pale colored stool since Sunday and dark urine. Notes Tbili was trending up. Denies any unintentional weightloss, no abdominal pain, jaundice or etoh hx. Pt does report asymptomatic gallstones. Pt's brother from pancreatic cancer in his late 40s. Per pt's he had an EUS many years ago, unable to recall results, will bring in report for review. No prior issues with color of stool, no melena or hematochezia, no rectal bleeding, constipation or diarrhea. Hx of EGD and Colonoscopy that were wnl per pt. ROS: A 12pt ROS was negative except as above. PMHx: As stated in HPI PSHx: Hip replacement x2, cataract, glaucoma and back surgery FH: Brother from pancreatic cancer in his late 40s SH: denies tobacco or drugs, drinks etoh socially Past Patient History - Infectious Disease Hx of Infectious Diseases: None - Tetanus Immunizations Tetanus Immunization: Unknown - Past Medical History & Family History Past Medical History?: Yes - Past Social History Smoking Status: Never Smoked - CARDIAC Hx Cardiac Disorders: Yes - PULMONARY Hx Respiratory Disorders: No - NEUROLOGICAL Hx Neurological Disorder: No - HEENT Hx HEENT Problems: Yes - RENAL Hx Chronic Kidney Disease: Yes Hx Kidney Stones: Yes - ENDOCRINE/METABOLIC Hx Endocrine Disorders: No - HEMATOLOGICAL/ONCOLOGICAL Hx AIDS: No Hx Anemia: Yes Hx Human Immunodeficiency Virus (HIV): No - INTEGUMENTARY Hx Dermatological Problems: Yes Hx Basil Cell: Yes - MUSCULOSKELETAL/RHEUMATOLOGICAL Hx Arthritis: Yes (both knees) Hx Falls: No Hx Rheumatoid Arthritis: No - GASTROINTESTINAL Hx Gall Bladder Disease: Yes (gallstones) - GENITOURINARY/GYNECOLOGICAL Hx Genitourinary Disorders: No - PSYCHIATRIC Hx Psychophysiologic Disorder: No Hx Substance Use: No - SURGICAL HISTORY Hx Surgeries: Yes Hx Cataract Extraction: Yes (BILATERAL) Hx Cardiac Catheterization: Yes Hx Eye Surgery: Yes (left eye retina detachment) Hx Joint Replacement: Yes (BILATERAL HIP) Hx Musculoskeletal Surgery: Yes (LUMBAR DISECTOMY 2003) Hx Orthopedic Surgery: Yes (s/p right TKR) Other/Comment: EPIDURALS X3, BILATERAL THR, 2015. left knee TKR on 08/27/18 - ANESTHESIA Hx Anesthesia: Yes Hx Anesthesia Reactions: No Hx Malignant Hyperthermia: No Meds Allergies/Adverse Reactions: Allergies Allergy/AdvReac Type Severity Reaction Status Date / Time No Known Allergies Allergy Unverified 09/02/18 14:19 - Medications Medications: Current Medications Atorvastatin Calcium (Lipitor) 20 mg PO HS [facility] Last Admin: 09/02/18 21:44 Dose: 20 mg Docusate Sodium (Colace) 100 mg PO TID [facility] Last Admin: 09/03/18 08:16 Dose: 100 mg Hydrocortisone (Cortizone 0.5% Cream) 1 applic TOP BID [facility] Last Admin: 09/03/18 08:16 Dose: 1 applic Latanoprost (Xalatan Opht) 1 drop OU HS [facility] Last Admin: 09/02/18 22:34 Dose: 1 drop Lidocaine (Lidoderm) 1 ea TD DAILY [facility] Last Admin: 09/03/18 08:17 Dose: 1 ea Lisinopril (Zestril) 10 mg PO DAILY [facility] Last Admin: 09/03/18 08:18 Dose: 10 mg Metoprolol Tartrate (Lopressor) 12.5 mg PO Q12 [facility] Last Admin: 09/03/18 08:17 Dose: 12.5 mg Nystatin (Mycostatin Cream) 1 applic TOP TID [facility] Last Admin: 09/03/18 08:17 Dose: 1 applic Oxycodone HCl (Oxycontin Extended Release Tab) 10 mg PO Q12 [facility] Last Admin: 09/03/18 08:23 Dose: 10 mg Pantoprazole Sodium (Protonix Ec Tab) 40 mg PO DAILY [facility] Last Admin: 09/03/18 08:17 Dose: 40 mg Rivaroxaban (Xarelto) 20 mg PO QD5 [facility]; Protocol Last Admin: 09/02/18 16:12 Dose: 20 mg Tamsulosin HCl (Flomax) 0.4 mg PO HS [facility] Last Admin: 09/02/18 21:44 Dose: 0.4 mg Tramadol HCl (Ultram) 50 mg PO Q8 PRN PRN Reason: Pain, severe (8-10) Last Admin: 09/03/18 06:59 Dose: 50 mg Physical Exam - Constitutional Appears: Non-toxic, No Acute Distress - Head Exam Head Exam: ATRAUMATIC, NORMAL INSPECTION, NORMOCEPHALIC - Eye Exam Eye Exam: EOMI, Normal appearance, PERRL Pupil Exam: PERRL - ENT Exam ENT Exam: Mucous Membranes Moist - Neck Exam Neck exam: Positive for: Full Rom, Normal Inspection - Respiratory Exam Respiratory Exam: Clear to Auscultation Bilateral, NORMAL BREATHING PATTERN - Cardiovascular Exam Cardiovascular Exam: REGULAR RHYTHM, RRR, +S1, +S2 - GI/Abdominal Exam GI & Abdominal Exam: Normal Bowel Sounds, Soft. absent: Distended, Firm, Guarding, Organomegaly, Rebound, Tenderness - Extremities Exam Additional comments: left knee s/p TKR - Neurological Exam Neurological exam: Alert, Oriented x3 - Psychiatric Exam Psychiatric exam: Normal Affect, Normal Mood - Skin Skin Exam: Dry, Intact, Normal Color, Warm Results - Vital Signs Recent Vital Signs: Last Vital Signs Temp 99.0 F 09/02/18 20:32 Pulse 79 09/03/18 09:48 Resp 20 09/03/18 09:48 BP 142/84 09/03/18 09:48 Pulse Ox 97 09/03/18 09:48 - Labs Result Diagrams: 09/02/18 17:05 Labs: Laboratory Results - last 24 hr 09/02/18 17:05 Sodium 140 Potassium 4.9 Chloride 102 Carbon Dioxide 37 H Anion Gap 6 L BUN 18 Creatinine 0.9 Est GFR ( Amer) > 60 Est GFR (Non-Af Amer) > 60 Random Glucose 126 H Calcium 9.0 Total Bilirubin 2.7 H Direct Bilirubin 0.3 AST 43 ALT 29 Alkaline Phosphatase 94 Total Protein 7.2 Albumin 3.6 Globulin 3.6 Albumin/Globulin Ratio 1.0 Assessment & Plan - Assessment and Plan (Free Text) Assessment: 1. Elevated Bilirubin 2. Paroxsysmal Afib 3. s/p left TKR Plan: -Continue supportive care with pain control -PTOT -Tbili slightly elevated, LFTs wnl -Mostly indirect bilirubin, likely from hemolysis/hematoma from recent surgery -With family hx of pancreatic cancer and elevated bili will order Pancreatic CT to r/o any underlying malignancy -Monitor labs -Diet as tolerated -Will continue to follow closely
[2018-09-03] MEDS ORDERED: Acetaminophen-Codeine 300/30 mg Tab PO PRN ×2 (12:39→13:52)
[2018-09-03] MEDS ORDERED: oxyCODONE 5 mg Immediate Release Tab PO PRN (13:49)
--- NOTE | 2018-09-03 13:54 | CP.PCM.CON ---
History of Present Illness - History of Present Illness History of Present Illness: Patient is well known to me for many years now s/p left TKR. Has had right TKR and bilateral THR in the past. He is aware of what goes into a rehab stay Review of Systems - Constitutional Constitutional: absent: Anorexia, Chills - EENT Eyes: absent: Change in Vision Ears: absent: Ear Discharge, Ear Pain Nose/Mouth/Throat: absent: Nasal Congestion - Cardiovascular Cardiovascular: absent: Chest Pain - Respiratory Respiratory: absent: Dyspnea, Hemoptysis - Gastrointestinal Gastrointestinal: absent: Belching, Constipation - Musculoskeletal Musculoskeletal: Limited Range of Motion (as expected after a TKR) - Integumentary Integumentary: absent: Bleeding Lesions - Neurological Neurological: Abnormal Gait. absent: Abnormal Movements Past Patient History - Infectious Disease Hx of Infectious Diseases: None - Tetanus Immunizations Tetanus Immunization: Unknown - Past Medical History & Family History Past Medical History?: Yes - Past Social History Smoking Status: Never Smoked Alcohol: Occasional Drugs: Denies Home Situation {Lives}: With Family - CARDIAC Hx Cardiac Disorders: Yes - PULMONARY Hx Respiratory Disorders: No - NEUROLOGICAL Hx Neurological Disorder: No - HEENT Hx HEENT Problems: Yes - RENAL Hx Chronic Kidney Disease: Yes Hx Kidney Stones: Yes - ENDOCRINE/METABOLIC Hx Endocrine Disorders: No - HEMATOLOGICAL/ONCOLOGICAL Hx AIDS: No Hx Anemia: Yes Hx Human Immunodeficiency Virus (HIV): No - INTEGUMENTARY Hx Dermatological Problems: Yes Hx Basil Cell: Yes - MUSCULOSKELETAL/RHEUMATOLOGICAL Hx Arthritis: Yes (both knees) Hx Falls: No Hx Rheumatoid Arthritis: No - GASTROINTESTINAL Hx Gall Bladder Disease: Yes (gallstones) - GENITOURINARY/GYNECOLOGICAL Hx Genitourinary Disorders: No - PSYCHIATRIC Hx Psychophysiologic Disorder: No Hx Substance Use: No - SURGICAL HISTORY Hx Surgeries: Yes Hx Cataract Extraction: Yes (BILATERAL) Hx Cardiac Catheterization: Yes Hx Eye Surgery: Yes (left eye retina detachment) Hx Joint Replacement: Yes (BILATERAL HIP) Hx Musculoskeletal Surgery: Yes (LUMBAR DISECTOMY 2003) Hx Orthopedic Surgery: Yes (s/p right TKR) Other/Comment: EPIDURALS X3, BILATERAL THR, 2015. left knee TKR on 08/27/18 - ANESTHESIA Hx Anesthesia: Yes Hx Anesthesia Reactions: No Hx Malignant Hyperthermia: No Meds Allergies/Adverse Reactions: Allergies Allergy/AdvReac Type Severity Reaction Status Date / Time No Known Allergies Allergy Unverified 09/02/18 14:19 - Medications Medications: Current Medications Atorvastatin Calcium (Lipitor) 20 mg PO HS [facility] Last Admin: 09/02/18 21:44 Dose: 20 mg Docusate Sodium (Colace) 100 mg PO TID [facility] Last Admin: 09/03/18 13:30 Dose: 100 mg Latanoprost (Xalatan Opht) 1 drop OU HS [facility] Last Admin: 09/02/18 22:34 Dose: 1 drop Lidocaine (Lidoderm) 1 ea TD DAILY [facility] Last Admin: 09/03/18 08:17 Dose: 1 ea Lisinopril (Zestril) 10 mg PO DAILY [facility] Last Admin: 09/03/18 08:18 Dose: 10 mg Metoprolol Tartrate (Lopressor) 12.5 mg PO Q12 [facility] Last Admin: 09/03/18 08:17 Dose: 12.5 mg Nystatin (Mycostatin Cream) 1 applic TOP TID [facility] Last Admin: 09/03/18 13:31 Dose: 1 applic Oxycodone HCl (Oxycontin Extended Release Tab) 10 mg PO Q12 [facility] Last Admin: 09/03/18 08:23 Dose: 10 mg Oxycodone HCl (Oxycodone Immediate Release Tab) 5 mg PO Q6 PRN PRN Reason: pain 8-10/10 Pantoprazole Sodium (Protonix Ec Tab) 40 mg PO DAILY [facility] Last Admin: 09/03/18 08:17 Dose: 40 mg Rivaroxaban (Xarelto) 20 mg PO QD5 [facility]; Protocol Last Admin: 09/02/18 16:12 Dose: 20 mg Tamsulosin HCl (Flomax) 0.4 mg PO [facility] Last Admin: 09/02/18 21:44 Dose: 0.4 mg Tramadol HCl (Ultram) 50 mg PO Q8 PRN PRN Reason: Pain, Severe 4-7/10 Physical Exam - Constitutional Appears: Non-toxic, In Acute Distress - Eye Exam Eye Exam: EOMI - ENT Exam ENT Exam: Mucous Membranes Moist - Respiratory Exam Respiratory Exam: NORMAL BREATHING PATTERN. absent: Chest Wall Tenderness - Cardiovascular Exam Cardiovascular Exam: REGULAR RHYTHM - GI/Abdominal Exam GI & Abdominal Exam: absent: Firm - Extremities Exam Extremities exam: Negative for: calf tenderness, full ROM (knee is doing ok thou ght at about 90 degrees while seated) - Neurological Exam Neurological exam: Alert, CN II-XII Intact, Oriented x3 - Psychiatric Exam Psychiatric exam: Normal Affect Results - Vital Signs Recent Vital Signs: Last Vital Signs Temp 99.0 F 09/02/18 20:32 Pulse 79 09/03/18 09:48 Resp 20 09/03/18 09:48 BP 142/84 09/03/18 09:48 Pulse Ox 97 09/03/18 09:48 - Labs Result Diagrams: 09/02/18 17:05 Labs: Laboratory Results - last 24 hr 09/02/18 17:05 Sodium 140 Potassium 4.9 Chloride 102 Carbon Dioxide 37 H Anion Gap 6 L BUN 18 Creatinine 0.9 Est GFR ( Amer) > 60 Est GFR (Non-Af Amer) > 60 Random Glucose 126 H Calcium 9.0 Total Bilirubin 2.7 H Direct Bilirubin 0.3 AST 43 ALT 29 Alkaline Phosphatase 94 Total Protein 7.2 Albumin 3.6 Globulin 3.6 Albumin/Globulin Ratio 1.0 Assessment & Plan - Assessment and Plan (Free Text) Assessment: Patient is s/p left TKR history of right TKR and bilateral THR increased pain medications a little was in a lot of discomfort continue current care
--- NOTE | 2018-09-03 21:05 | CARD ---
APPROVED REPORT Date of service: 09/03/2018 EKG Measurement Heart [id number] <Conclusion> Sinus rhythm with 1st degree AV block Low voltage QRS Junctional ST depression, probably normal Borderline ECG
[2018-09-03] MEDS: Latanoprost 0.005% Opht SOUTION OU SCH (21:23)
[2018-09-04] MEDS ORDERED: Iohexol 240 (50 ml) PO ONE (06:00)
[2018-09-04 07:13] LABS: ALBUMIN 3.4 g/dL (3.5-5.0); BILIRUBIN,DIRECT 0.4 mg/ml (0.0-0.4)
[2018-09-04] MEDS: Lidocaine 5% Patch TD SCH (08:21)
[2018-09-04] MEDS: Pantoprazole 40 mg EC Tab PO SCH (08:24)
[2018-09-04] MEDS: oxyCODONE 10 mg ER Tab (oxyCONTIN) PO SCH ×2 (08:24→21:44)
--- NOTE | 2018-09-04 08:47 | CP.PCM.PN ---
Subjective - Date & Time of Evaluation Date of Evaluation: 09/04/18 Time of Evaluation: 08:35 - Subjective Subjective: Sitting up in a wheel chair, ready for AM PT Will have an abd CT to R/O pancreatic mass Slept well, denies any palpitations HR 70 BPM, reg BP 118/82 mm Hg No signs of CHF Will get a Holter today, to R/O unrecognised A Fib or bradycardia on beta blockade Objective - Vital Signs/Intake and Output Vital Signs (last 24 hours): Temp Pulse Resp BP Pulse Ox 97.9 F 83 20 144/90 99 09/04/18 08:26 09/04/18 08:26 09/04/18 08:26 09/04/18 08:26 09/04/18 08:26 - Medications Medications: Current Medications Acetaminophen/Codeine Phosphate (Tylenol/Codeine 300 Mg/30 Mg) 1 tab PO TID PRN PRN Reason: Pain less than 4/10 Atorvastatin Calcium (Lipitor) 20 mg PO HS [facility] Last Admin: 09/03/18 21:20 Dose: 20 mg Docusate Sodium (Colace) 100 mg PO TID [facility] Last Admin: 09/04/18 08:21 Dose: 100 mg Latanoprost (Xalatan Opht) 1 drop OU HS [facility] Last Admin: 09/03/18 21:23 Dose: 1 drop Lidocaine (Lidoderm) 1 ea TD DAILY [facility] Last Admin: 09/04/18 08:21 Dose: 1 ea Lisinopril (Zestril) 10 mg PO DAILY [facility] Last Admin: 09/04/18 08:21 Dose: 10 mg Metoprolol Tartrate (Lopressor) 12.5 mg PO Q12 [facility] Last Admin: 09/04/18 08:21 Dose: 12.5 mg Nystatin (Mycostatin Cream) 1 applic TOP TID [facility] Last Admin: 09/04/18 08:22 Dose: 1 applic Oxycodone HCl (Oxycontin Extended Release Tab) 10 mg PO Q12 [facility] Last Admin: 09/04/18 08:24 Dose: 10 mg Oxycodone HCl (Oxycodone Immediate Release Tab) 5 mg PO Q6 PRN PRN Reason: pain 8-10/10 Pantoprazole Sodium (Protonix Ec Tab) 40 mg PO DAILY [facility] Last Admin: 09/04/18 08:24 Dose: 40 mg Rivaroxaban (Xarelto) 20 mg PO QD5 [facility]; Protocol Last Admin: 09/03/18 17:20 Dose: 20 mg Tamsulosin HCl (Flomax) 0.4 mg PO HS [facility] Last Admin: 09/03/18 21:20 Dose: 0.4 mg Tramadol HCl (Ultram) 50 mg PO Q8 PRN PRN Reason: Pain, Severe 4-05/21 Last Admin: 09/03/18 17:23 Dose: 50 mg - Labs Labs: 09/02/18 17:05
--- NOTE | 2018-09-04 13:15 | CP.PCM.PN ---
Subjective - Date & Time of Evaluation Date of Evaluation: 09/04/18 Time of Evaluation: 13:00 - Subjective Subjective: GI Fellow PGY5 Progress Note Pt seen and evaluated at bedside, he is doing well with no complaints of abdominal pain. Reports stool and urine color back to normal. ROS: A 12pt ROS was negative except as above. Objective - Vital Signs/Intake and Output Vital Signs (last 24 hours): Temp Pulse Resp BP Pulse Ox 97.9 F 83 20 144/90 99 09/04/18 08:26 09/04/18 08:26 09/04/18 08:26 09/04/18 08:26 09/04/18 08:26 - Medications Medications: Current Medications Acetaminophen/Codeine Phosphate (Tylenol/Codeine 300 Mg/30 Mg) 1 tab PO TID PRN PRN Reason: Pain less than 4/10 Atorvastatin Calcium (Lipitor) 20 mg PO HS [facility] Last Admin: 09/03/18 21:20 Dose: 20 mg Docusate Sodium (Colace) 100 mg PO TID [facility] Last Admin: 09/04/18 12:35 Dose: 100 mg Latanoprost (Xalatan Opht) 1 drop OU HS [facility] Last Admin: 09/03/18 21:23 Dose: 1 drop Lidocaine (Lidoderm) 1 ea TD DAILY [facility] Last Admin: 09/04/18 08:21 Dose: 1 ea Lisinopril (Zestril) 10 mg PO DAILY [facility] Last Admin: 09/04/18 08:21 Dose: 10 mg Metoprolol Tartrate (Lopressor) 12.5 mg PO Q12 [facility] Last Admin: 09/04/18 08:21 Dose: 12.5 mg Nystatin (Mycostatin Cream) 1 applic TOP TID [facility] Last Admin: 09/04/18 12:35 Dose: 1 applic Oxycodone HCl (Oxycontin Extended Release Tab) 10 mg PO Q12 [facility] Last Admin: 09/04/18 08:24 Dose: 10 mg Oxycodone HCl (Oxycodone Immediate Release Tab) 5 mg PO Q6 PRN PRN Reason: pain 8-10/10 Pantoprazole Sodium (Protonix Ec Tab) 40 mg PO DAILY [facility] Last Admin: 09/04/18 08:24 Dose: 40 mg Rivaroxaban (Xarelto) 20 mg PO QD5 [facility]; Protocol Last Admin: 09/03/18 17:20 Dose: 20 mg Tamsulosin HCl (Flomax) 0.4 mg PO HS [facility] Last Admin: 09/03/18 21:20 Dose: 0.4 mg Tramadol HCl (Ultram) 50 mg PO Q8 PRN PRN Reason: Pain, Severe 4-05/21 Last Admin: 09/04/18 09:55 Dose: 50 mg - Labs Labs: 09/02/18 17:05 - Constitutional Appears: Non-toxic, No Acute Distress - Head Exam Head Exam: ATRAUMATIC, NORMAL INSPECTION, NORMOCEPHALIC - Eye Exam Eye Exam: EOMI, Normal appearance, PERRL Pupil Exam: PERRL - ENT Exam ENT Exam: Mucous Membranes Moist - Neck Exam Neck Exam: Full ROM, Normal Inspection - Respiratory Exam Respiratory Exam: Clear to Ausculation Bilateral, NORMAL BREATHING PATTERN - Cardiovascular Exam Cardiovascular Exam: RRR, +S1, +S2 - GI/Abdominal Exam GI & Abdominal Exam: Soft, Normal Bowel Sounds. absent: Distended, Firm, Guarding, Tenderness - Rectal Exam Rectal Exam: Deferred - Neurological Exam Neurological Exam: Alert, Awake, Oriented x3 - Psychiatric Exam Psychiatric exam: Normal Affect, Normal Mood - Skin Skin Exam: Dry, Intact, Normal Color, Warm Assessment and Plan - Assessment and Plan (Free Text) Assessment: 1. Elevated Bilirubin 2. Paroxsysmal Afib 3. s/p left TKR 4. Cholelithiasis 5. Pancreatic atrophy Plan: -Continue supportive care with pain control -PTOT -Tbili slightly elevated, LFTs wnl -Tibili trending down -Mostly indirect bilirubin, likely from hemolysis/hematoma from recent surgery -With family hx of pancreatic cancer and elevated bili, Pancreatic CT ordered: negative for malignancy, lesion, duct dilation -Monitor labs as an outpt -Diet as tolerated -Asymptomatic gallstones -Please call with any questions or concerns
[2018-09-04 21:35] LABS: HEPATITIS B SURFACE AG Negative (NEGATIVE)
[2018-09-04 21:41] LABS: HEPATITIS A IGM NEGATIVE (NEGATIVE); HEPATITIS B CORE AB NEGATIVE (NEGATIVE)
[2018-09-04] MEDS: Latanoprost 0.005% Opht SOUTION OU SCH (21:49)
[2018-09-04 21:52] LABS: HEPATITIS C ANTIBODY NEGATIVE (NEGATIVE)
[2018-09-05 06:31] LABS: MEAN CELL VOLUME 95.9 fl (80.0-94.0); MEAN CORPUSCULAR HEMOGLOBIN 33.7 pg (27.0-31.0); MEAN CORPUSCULAR HGB CONC 35.1 g/dL (33.0-37.0); RBC 2.68 Mil/uL (4.40-5.90); RED CELL DISTRIBUTION WIDTH 13.5 % (11.5-14.5); WHITE BLOOD COUNT 4.4 K/uL (4.8-10.8)
[2018-09-05 06:53] LABS: BLOOD UREA NITROGEN 20 mg/dl (9-20); CALCIUM 8.4 mg/dL (8.4-10.2); GFR NON-AFRICAN AMERICAN > 60
[2018-09-05] MEDS: Lidocaine 5% Patch TD SCH (08:27)
[2018-09-05] MEDS: Nystatin Ointment TOP SCH ×3 (08:28→17:18)
[2018-09-05] MEDS: Pantoprazole 40 mg EC Tab PO SCH (08:29)
[2018-09-05] MEDS: oxyCODONE 10 mg ER Tab (oxyCONTIN) PO SCH ×2 (08:29→21:55)
--- NOTE | 2018-09-05 10:10 | CP.PCM.PN ---
Subjective - Date & Time of Evaluation Date of Evaluation: 09/05/18 Time of Evaluation: 09:25 - Subjective Subjective: the patient was examined today. He was sitting comfortably in a wheelchair getting ready to start his physical therapy. He denied any palpitations or chest pains in the preceding 24 hours. His Holter monitor had just been removed. His heart rate was 70 bpm regular and his blood pressure was 120/74 mmHg. His jugular venous pressure was not elevated and there was no edema over his lower extremities. His chest was clear and his heart sounds were lower. There was no murmur or gallop. There were no rales. The Holter according would be analyzed today. the patient plans to go home tomorrow. Objective - Vital Signs/Intake and Output Vital Signs (last 24 hours): Temp Pulse Resp BP Pulse Ox 98.2 F 80 20 136/83 98 09/05/18 07:53 09/05/18 08:29 09/05/18 07:53 09/05/18 08:29 09/05/18 07:53 - Medications Medications: Current Medications Acetaminophen/Codeine Phosphate (Tylenol/Codeine 300 Mg/30 Mg) 1 tab PO TID PRN PRN Reason: Pain less than 4/10 Atorvastatin Calcium (Lipitor) 20 mg PO HS [facility] Last Admin: 09/04/18 21:49 Dose: 20 mg Docusate Sodium (Colace) 100 mg PO TID [facility] Last Admin: 09/05/18 08:27 Dose: 100 mg Latanoprost (Xalatan Opht) 1 drop OU HS [facility] Last Admin: 09/04/18 21:49 Dose: 1 drop Lidocaine (Lidoderm) 1 ea TD DAILY [facility] Last Admin: 09/05/18 08:27 Dose: 1 ea Lisinopril (Zestril) 10 mg PO DAILY [facility] Last Admin: 09/05/18 08:29 Dose: 10 mg Metoprolol Tartrate (Lopressor) 12.5 mg PO Q12 [facility] Last Admin: 09/05/18 08:27 Dose: 12.5 mg Nystatin (Mycostatin Oint) 1 applic TOP TID [facility] Last Admin: 09/05/18 08:28 Dose: 1 applic Oxycodone HCl (Oxycontin Extended Release Tab) 10 mg PO Q12 [facility] Last Admin: 09/05/18 08:29 Dose: 10 mg Oxycodone HCl (Oxycodone Immediate Release Tab) 5 mg PO Q6 PRN PRN Reason: pain 8-08/21 Pantoprazole Sodium (Protonix Ec Tab) 40 mg PO DAILY [facility] Last Admin: 09/05/18 08:29 Dose: 40 mg Rivaroxaban (Xarelto) 20 mg PO QD5 [facility]; Protocol Last Admin: 09/04/18 16:48 Dose: 20 mg Tamsulosin HCl (Flomax) 0.4 mg PO HS [facility] Last Admin: 09/04/18 23:04 Dose: 0.4 mg Tramadol HCl (Ultram) 50 mg PO Q8 PRN PRN Reason: Pain, Severe 4-05/21 Last Admin: 09/05/18 08:35 Dose: 50 mg - Labs Labs: 09/05/18 06:18 09/05/18 06:18
--- NOTE | 2018-09-05 10:23 | CP.PCM.PN ---
Subjective - Date & Time of Evaluation Date of Evaluation: 09/05/18 Time of Evaluation: 09:00 - Subjective Subjective: GI Fellow PGY5 Progress Note Pt seen and evaluated at bedside, doing well with no complaints. Tolerating diet and no diarrhea. Last BM was yesterday. ROS: A 12pt ROS was negative except as above. Objective - Vital Signs/Intake and Output Vital Signs (last 24 hours): Temp Pulse Resp BP Pulse Ox 98.2 F 80 20 136/83 98 09/05/18 07:53 09/05/18 08:29 09/05/18 07:53 09/05/18 08:29 09/05/18 07:53 - Medications Medications: Current Medications Acetaminophen/Codeine Phosphate (Tylenol/Codeine 300 Mg/30 Mg) 1 tab PO TID PRN PRN Reason: Pain less than 4/10 Atorvastatin Calcium (Lipitor) 20 mg PO HS [facility] Last Admin: 09/04/18 21:49 Dose: 20 mg Docusate Sodium (Colace) 100 mg PO TID [facility] Last Admin: 09/05/18 08:27 Dose: 100 mg Latanoprost (Xalatan Opht) 1 drop OU HS [facility] Last Admin: 09/04/18 21:49 Dose: 1 drop Lidocaine (Lidoderm) 1 ea TD DAILY [facility] Last Admin: 09/05/18 08:27 Dose: 1 ea Lisinopril (Zestril) 10 mg PO DAILY [facility] Last Admin: 09/05/18 08:29 Dose: 10 mg Metoprolol Tartrate (Lopressor) 12.5 mg PO Q12 [facility] Last Admin: 09/05/18 08:27 Dose: 12.5 mg Nystatin (Mycostatin Oint) 1 applic TOP TID [facility] Last Admin: 09/05/18 08:28 Dose: 1 applic Oxycodone HCl (Oxycontin Extended Release Tab) 10 mg PO Q12 [facility] Last Admin: 09/05/18 08:29 Dose: 10 mg Oxycodone HCl (Oxycodone Immediate Release Tab) 5 mg PO Q6 PRN PRN Reason: pain 8-10/10 Pantoprazole Sodium (Protonix Ec Tab) 40 mg PO DAILY [facility] Last Admin: 09/05/18 08:29 Dose: 40 mg Rivaroxaban (Xarelto) 20 mg PO QD5 [facility]; Protocol Last Admin: 09/04/18 16:48 Dose: 20 mg Tamsulosin HCl (Flomax) 0.4 mg PO HS [facility] Last Admin: 09/04/18 23:04 Dose: 0.4 mg Tramadol HCl (Ultram) 50 mg PO Q8 PRN PRN Reason: Pain, Severe 4-05/21 Last Admin: 09/05/18 08:35 Dose: 50 mg - Labs Labs: 09/05/18 06:18 09/05/18 06:18 - Constitutional Appears: Non-toxic, No Acute Distress - Head Exam Head Exam: ATRAUMATIC, NORMAL INSPECTION, NORMOCEPHALIC - Eye Exam Eye Exam: EOMI, Normal appearance, PERRL - ENT Exam ENT Exam: Mucous Membranes Dry, Mucous Membranes Moist - Neck Exam Neck Exam: Full ROM, Normal Inspection - Respiratory Exam Respiratory Exam: Clear to Ausculation Bilateral, NORMAL BREATHING PATTERN - Cardiovascular Exam Cardiovascular Exam: REGULAR RHYTHM, RRR, +S1, +S2 - GI/Abdominal Exam GI & Abdominal Exam: Soft, Normal Bowel Sounds. absent: Distended, Guarding, Tenderness - Rectal Exam Rectal Exam: Deferred - Extremities Exam Extremities Exam: Full ROM, Normal Inspection - Back Exam Back Exam: NORMAL INSPECTION - Neurological Exam Neurological Exam: Alert, Awake, Oriented x3 - Psychiatric Exam Psychiatric exam: Normal Affect, Normal Mood - Skin Skin Exam: Dry, Intact, Normal Color, Warm Assessment and Plan - Assessment and Plan (Free Text) Assessment: 1. Elevated Bilirubin 2. Paroxsysmal Afib 3. s/p left TKR 4. Cholelithiasis 5. Pancreatic atrophy Plan: -Continue supportive care with pain control -PTOT -Tbili slightly elevated, LFTs wnl -Tibili trending down -Monitor LFTs -Mostly indirect bilirubin, likely from hemolysis/hematoma from recent surgery -With family hx of pancreatic cancer and elevated bili, Pancreatic CT ordered: negative for malignancy, lesion, duct dilation -CT with atrophy of pancreas, recommended monitor Tbili as an outpt, if still elevated will need to follow up with GI for possible EUS -Diet as tolerated -Asymptomatic gallstones -Please call with any questions or concerns
--- NOTE | 2018-09-05 13:52 | CP.PCM.HP ---
History of Present Illness - History of Present Illness History of Present Illness: This nguyen 72 y/o male with hx of OA and had a recent TKR of the left. He had an unremarkable immediate post op period and was discharged to TCU for rehab but developed rapid atrial fibrillation hence was transferred to telemetry. He was treated with metoprolol and xarelto. He converted and was stabilized and re admitted to TCU. Medical Hx OA previous right TKR HTN HYperlipidemia BPH Present on Admission - Present on Admission Any Indicators Present on Admission: No History of DVT/PE: No History of Uncontrolled Diabetes: No Urinary Catheter: No Decubitus Ulcer Present: No Review of Systems - Cardiovascular Cardiovascular: Irregular Heart Rhythm - Genitourinary Genitourinary: Difficulty Urinating - Musculoskeletal Musculoskeletal: Arthralgias Past Patient History - Infectious Disease Hx of Infectious Diseases: None - Tetanus Immunizations Tetanus Immunization: Unknown - Past Medical History & Family History Past Medical History?: Yes - Past Social History Smoking Status: Never Smoked Alcohol: Occasional Drugs: Denies Home Situation {Lives}: With Family - CARDIAC Hx Cardiac Disorders: Yes - PULMONARY Hx Respiratory Disorders: No - NEUROLOGICAL Hx Neurological Disorder: No - HEENT Hx HEENT Problems: Yes - RENAL Hx Chronic Kidney Disease: Yes Hx Kidney Stones: Yes - ENDOCRINE/METABOLIC Hx Endocrine Disorders: No - HEMATOLOGICAL/ONCOLOGICAL Hx AIDS: No Hx Human Immunodeficiency Virus (HIV): No - INTEGUMENTARY Hx Dermatological Problems: Yes Hx Basil Cell: Yes - MUSCULOSKELETAL/RHEUMATOLOGICAL Hx Arthritis: Yes (both knees) Hx Falls: No Hx Rheumatoid Arthritis: No - GASTROINTESTINAL Hx Gall Bladder Disease: Yes (gallstones) - GENITOURINARY/GYNECOLOGICAL Hx Genitourinary Disorders: No - PSYCHIATRIC Hx Psychophysiologic Disorder: No Hx Substance Use: No - SURGICAL HISTORY Hx Surgeries: Yes Hx Cataract Extraction: Yes (BILATERAL) Hx Cardiac Catheterization: Yes Hx Eye Surgery: Yes (left eye retina detachment) Hx Joint Replacement: Yes (BILATERAL HIP) Hx Musculoskeletal Surgery: Yes (LUMBAR DISECTOMY 2003) Hx Orthopedic Surgery: Yes (s/p right TKR) Other/Comment: EPIDURALS X3, BILATERAL THR, 2015. left knee TKR on 08/27/18 - ANESTHESIA Hx Anesthesia: Yes Hx Anesthesia Reactions: No Hx Malignant Hyperthermia: No Meds Allergies/Adverse Reactions: Allergies Allergy/AdvReac Type Severity Reaction Status Date / Time No Known Allergies Allergy Unverified 09/02/18 14:19 Physical Exam - Head Exam Head Exam: NORMAL INSPECTION - Eye Exam Eye Exam: Normal appearance - ENT Exam ENT Exam: Mucous Membranes Moist - Respiratory Exam Respiratory Exam: Clear to Auscultation Bilateral - Cardiovascular Exam Cardiovascular Exam: REGULAR RHYTHM - GI/Abdominal Exam GI & Abdominal Exam: Normal Bowel Sounds - Extremities Exam Additional comments: resolving ecchymoses on juliet posterior aspect of the lower thigh and upper leg left - Neurological Exam Neurological exam: Alert, Oriented x3 Results - Vital Signs Recent Vital Signs: Last Vital Signs Temp 98.2 F 09/05/18 07:53 Pulse 80 09/05/18 08:29 Resp 20 09/05/18 07:53 BP 136/83 09/05/18 08:29 Pulse Ox 98 09/05/18 07:53 - Labs Result Diagrams: 09/05/18 06:18 09/05/18 06:18 Labs: Laboratory Results - last 24 hr 09/04/18 09/05/18 09/05/18 15:46 06:18 06:18 WBC 4.4 L RBC 2.68 L Hgb 9.0 L Hct 25.7 L MCV 95.9 H MCH 33.7 H MCHC 35.1 RDW 13.5 Plt Count 390 D Sodium 140 Potassium 4.7 Chloride 105 Carbon Dioxide 32 H Anion Gap 8 L BUN 20 Creatinine 0.9 Est GFR ( Amer) > 60 Est GFR (Non-Af Amer) > 60 Random Glucose 119 H Calcium 8.4 Hepatitis A IgM Ab Negative Hep Bs Antigen Negative Hep B Core IgM Ab Negative Hepatitis C Antibody Negative Assessment & Plan (1) Status post total left knee replacement Status: Acute (2) Anemia Status: Acute Priority: Medium (3) Atrial fibrillation Status: Acute (4) Osteoarthritis of left knee Status: Acute (5) HLD (hyperlipidemia) Status: Chronic Priority: Low (6) Hypertension Status: Chronic - Assessment and Plan (Free Text) Plan: start Phys therapy Pain meds monitor ekg labs pain meds GI eval for discolored stools
--- NOTE | 2018-09-05 14:04 | CP.PCM.PN ---
Subjective - Date & Time of Evaluation Date of Evaluation: 09/04/18 Time of Evaluation: 11:00 - Subjective Subjective: Patient is doing a lot better Has no chest pain or SOB afberile Tolerates pain better Doing well with phsy therapy Objective - Vital Signs/Intake and Output Vital Signs (last 24 hours): Temp Pulse Resp BP Pulse Ox 98.2 F 80 20 136/83 98 09/05/18 07:53 09/05/18 08:29 09/05/18 07:53 09/05/18 08:29 09/05/18 07:53 - Medications Medications: Current Medications Acetaminophen/Codeine Phosphate (Tylenol/Codeine 300 Mg/30 Mg) 1 tab PO TID PRN PRN Reason: Pain less than 4/10 Atorvastatin Calcium (Lipitor) 20 mg PO HS [facility] Last Admin: 09/04/18 21:49 Dose: 20 mg Docusate Sodium (Colace) 100 mg PO TID [facility] Last Admin: 09/05/18 13:15 Dose: 100 mg Latanoprost (Xalatan Opht) 1 drop OU HS [facility] Last Admin: 09/04/18 21:49 Dose: 1 drop Lidocaine (Lidoderm) 1 ea TD DAILY [facility] Last Admin: 09/05/18 08:27 Dose: 1 ea Lisinopril (Zestril) 10 mg PO DAILY [facility] Last Admin: 09/05/18 08:29 Dose: 10 mg Metoprolol Tartrate (Lopressor) 12.5 mg PO Q12 [facility] Last Admin: 09/05/18 08:27 Dose: 12.5 mg Nystatin (Mycostatin Oint) 1 applic TOP TID [facility] Last Admin: 09/05/18 13:14 Dose: 1 applic Oxycodone HCl (Oxycontin Extended Release Tab) 10 mg PO Q12 [facility] Last Admin: 09/05/18 08:29 Dose: 10 mg Oxycodone HCl (Oxycodone Immediate Release Tab) 5 mg PO Q6 PRN PRN Reason: pain 8-1010 Last Admin: 09/05/18 13:13 Dose: 5 mg Pantoprazole Sodium (Protonix Ec Tab) 40 mg PO DAILY [facility] Last Admin: 09/05/18 08:29 Dose: 40 mg Rivaroxaban (Xarelto) 20 mg PO QD5 [facility]; Protocol Last Admin: 09/04/18 16:48 Dose: 20 mg Tamsulosin HCl (Flomax) 0.4 mg PO HS [facility] Last Admin: 09/04/18 23:04 Dose: 0.4 mg Tramadol HCl (Ultram) 50 mg PO Q8 PRN PRN Reason: Pain, Severe 4-05/21 Last Admin: 09/05/18 08:35 Dose: 50 mg - Labs Labs: 09/05/18 06:18 09/05/18 06:18 - Head Exam Head Exam: NORMAL INSPECTION - Eye Exam Eye Exam: Normal appearance - Respiratory Exam Respiratory Exam: Clear to Ausculation Bilateral - Cardiovascular Exam Cardiovascular Exam: REGULAR RHYTHM - GI/Abdominal Exam GI & Abdominal Exam: Normal Bowel Sounds - Neurological Exam Neurological Exam: Awake, Oriented x3 Assessment and Plan (1) Status post total left knee replacement Status: Acute (2) Anemia Status: Acute (3) Atrial fibrillation Status: Acute (4) Osteoarthritis of left knee Status: Acute (5) HLD (hyperlipidemia) Status: Chronic (6) Hypertension Status: Chronic - Assessment and Plan (Free Text) Plan: Cont meds Cont tx Cont phys therapy Cont tx
--- NOTE | 2018-09-05 14:09 | CP.PCM.PN ---
Subjective - Date & Time of Evaluation Date of Evaluation: 09/05/18 Time of Evaluation: 11:00 - Subjective Subjective: patient is getting better Has less pain Noted resolving ecchymoses on the left lower ext Has no fever. Objective - Vital Signs/Intake and Output Vital Signs (last 24 hours): Temp Pulse Resp BP Pulse Ox 98.2 F 80 20 136/83 98 09/05/18 07:53 09/05/18 08:29 09/05/18 07:53 09/05/18 08:29 09/05/18 07:53 - Medications Medications: Current Medications Acetaminophen/Codeine Phosphate (Tylenol/Codeine 300 Mg/30 Mg) 1 tab PO TID PRN PRN Reason: Pain less than 4/10 Atorvastatin Calcium (Lipitor) 20 mg PO HS [facility] Last Admin: 09/04/18 21:49 Dose: 20 mg Docusate Sodium (Colace) 100 mg PO TID [facility] Last Admin: 09/05/18 13:15 Dose: 100 mg Latanoprost (Xalatan Opht) 1 drop OU HS [facility] Last Admin: 09/04/18 21:49 Dose: 1 drop Lidocaine (Lidoderm) 1 ea TD DAILY [facility] Last Admin: 09/05/18 08:27 Dose: 1 ea Lisinopril (Zestril) 10 mg PO DAILY [facility] Last Admin: 09/05/18 08:29 Dose: 10 mg Metoprolol Tartrate (Lopressor) 12.5 mg PO Q12 [facility] Last Admin: 09/05/18 08:27 Dose: 12.5 mg Nystatin (Mycostatin Oint) 1 applic TOP TID [facility] Last Admin: 09/05/18 13:14 Dose: 1 applic Oxycodone HCl (Oxycontin Extended Release Tab) 10 mg PO Q12 [facility] Last Admin: 09/05/18 08:29 Dose: 10 mg Oxycodone HCl (Oxycodone Immediate Release Tab) 5 mg PO Q6 PRN PRN Reason: pain 8-10/10 Last Admin: 09/05/18 13:13 Dose: 5 mg Pantoprazole Sodium (Protonix Ec Tab) 40 mg PO DAILY [facility] Last Admin: 09/05/18 08:29 Dose: 40 mg Rivaroxaban (Xarelto) 20 mg PO QD5 [facility]; Protocol Last Admin: 10/24/18 16:48 Dose: 20 mg Tamsulosin HCl (Flomax) 0.4 mg PO HS [facility] Last Admin: 09/04/18 23:04 Dose: 0.4 mg Tramadol HCl (Ultram) 50 mg PO Q8 PRN PRN Reason: Pain, Severe 4-05/21 Last Admin: 09/05/18 08:35 Dose: 50 mg - Labs Labs: 09/05/18 06:18 09/05/18 06:18 - Head Exam Head Exam: NORMAL INSPECTION - Eye Exam Eye Exam: Normal appearance - Respiratory Exam Respiratory Exam: Clear to Ausculation Bilateral - Cardiovascular Exam Cardiovascular Exam: REGULAR RHYTHM - GI/Abdominal Exam GI & Abdominal Exam: Normal Bowel Sounds Assessment and Plan (1) Status post total left knee replacement Status: Acute (2) Anemia Status: Acute (3) Atrial fibrillation Status: Acute (4) Osteoarthritis of left knee Status: Acute (5) HLD (hyperlipidemia) Status: Chronic (6) Hypertension Status: Chronic - Assessment and Plan (Free Text) Plan: Cont meds Cont tx Cont PT pain meds
[2018-09-05 19:26] VITALS: TEMP 98.8
[2018-09-05] MEDS: Latanoprost 0.005% Opht SOUTION OU SCH (21:57)
[2018-09-06 06:55] LABS: ALB/GLOB RATIO 0.9 (1.0-2.1); ALBUMIN 2.9 g/dL (3.5-5.0); BILIRUBIN,DIRECT 0.2 mg/ml (0.0-0.4)
--- NOTE | 2018-09-06 07:41 | CP.PCM.PN ---
Subjective - Date & Time of Evaluation Date of Evaluation: 09/06/18 Time of Evaluation: 06:00 - Subjective Subjective: GI Fellow PGY5 Progress Note Pt seen and evaluated, doing better with no complaints, no abdominal pain. Eating food.+BM. No fevers or chills. ROS: A 12pt ROS was negative except as above. Objective - Vital Signs/Intake and Output Vital Signs (last 24 hours): Temp Pulse Resp BP Pulse Ox 98.8 F 94 H 20 102/65 97 09/05/18 19:25 09/05/18 19:25 09/05/18 19:25 09/05/18 19:25 09/05/18 19:25 - Medications Medications: Current Medications Acetaminophen/Codeine Phosphate (Tylenol/Codeine 300 Mg/30 Mg) 1 tab PO TID PRN PRN Reason: Pain less than 4/10 Atorvastatin Calcium (Lipitor) 20 mg PO HS [facility] Last Admin: 09/05/18 21:54 Dose: 20 mg Docusate Sodium (Colace) 100 mg PO TID [facility] Last Admin: 09/05/18 17:17 Dose: 100 mg Latanoprost (Xalatan Opht) 1 drop OU HS [facility] Last Admin: 09/05/18 21:57 Dose: 1 drop Lidocaine (Lidoderm) 1 ea TD DAILY [facility] Last Admin: 09/05/18 08:27 Dose: 1 ea Lisinopril (Zestril) 10 mg PO DAILY [facility] Last Admin: 09/05/18 08:29 Dose: 10 mg Metoprolol Tartrate (Lopressor) 12.5 mg PO Q12 [facility] Last Admin: 09/05/18 21:56 Dose: 12.5 mg Nystatin (Mycostatin Oint) 1 applic TOP TID [facility] Last Admin: 09/05/18 17:18 Dose: 1 applic Oxycodone HCl (Oxycontin Extended Release Tab) 10 mg PO Q12 [facility] Last Admin: 09/05/18 21:55 Dose: 10 mg Oxycodone HCl (Oxycodone Immediate Release Tab) 5 mg PO Q6 PRN PRN Reason: pain 8-10/10 Last Admin: 09/05/18 13:13 Dose: 5 mg Pantoprazole Sodium (Protonix Ec Tab) 40 mg PO DAILY [facility] Last Admin: 09/05/18 08:29 Dose: 40 mg Rivaroxaban (Xarelto) 20 mg PO QD5 [facility]; Protocol Last Admin: 09/05/18 17:18 Dose: 20 mg Tamsulosin HCl (Flomax) 0.4 mg PO HS [facility] Last Admin: 09/05/18 21:55 Dose: 0.4 mg Tramadol HCl (Ultram) 50 mg PO Q8 PRN PRN Reason: Pain, Severe 4-710 Last Admin: 09/05/18 08:35 Dose: 50 mg - Labs Labs: 09/05/18 06:18 09/05/18 06:18 - Constitutional Appears: Non-toxic, No Acute Distress - Head Exam Head Exam: ATRAUMATIC, NORMAL INSPECTION, NORMOCEPHALIC - Eye Exam Eye Exam: EOMI, Normal appearance Pupil Exam: PERRL - ENT Exam ENT Exam: Mucous Membranes Moist - Neck Exam Neck Exam: Normal Inspection - Respiratory Exam Respiratory Exam: Clear to Ausculation Bilateral, NORMAL BREATHING PATTERN - Cardiovascular Exam Cardiovascular Exam: RRR, +S1, +S2 - GI/Abdominal Exam GI & Abdominal Exam: Soft, Normal Bowel Sounds - Extremities Exam Extremities Exam: Full ROM - Back Exam Back Exam: NORMAL INSPECTION - Neurological Exam Neurological Exam: Alert, Awake, Oriented x3 - Psychiatric Exam Psychiatric exam: Normal Affect, Normal Mood - Skin Skin Exam: Dry, Intact, Normal Color, Warm Assessment and Plan - Assessment and Plan (Free Text) Assessment: 1. Elevated Bilirubin 2. Paroxsysmal Afib 3. s/p left TKR 4. Cholelithiasis 5. Pancreatic atrophy Plan: -Continue supportive care with pain control -PTOT -Tbili slightly elevated, LFTs wnl -Tibili trending down to 2.0 -Mostly indirect bilirubin, likely from hemolysis/hematoma from recent surgery -With family hx of pancreatic cancer and elevated bili, Pancreatic CT ordered: negative for malignancy, lesion, duct dilation -CT with atrophy of pancreas, recommended monitor Tbili as an outpt, if still elevated will need to follow up with GI for possible EUS -Diet as tolerated -Asymptomatic gallstones -Bowel regimen while on pain medication -Please call with any questions or concerns
[2018-09-06] MEDS: oxyCODONE 10 mg ER Tab (oxyCONTIN) PO SCH (08:39)
[2018-09-06] MEDS: Nystatin Ointment TOP SCH ×2 (08:39→12:58)
[2018-09-06] MEDS: Pantoprazole 40 mg EC Tab PO SCH (08:39)
[2018-09-06] MEDS: Lidocaine 5% Patch TD SCH (08:39)
[2018-09-06 08:45] VITALS: BP 121/51; PULSE 64; O2SAT 93
--- NOTE | 2018-09-06 09:52 | CP.PCM.PN ---
Subjective - Date & Time of Evaluation Date of Evaluation: 09/06/18 Time of Evaluation: 09:00 - Subjective Subjective: The patient was found sitting up in his wheelchair without any symptoms. The surgical wound on his knee continues to heal. The patient denies any episode of palpitations or lightheadedness. His heart rate was 64 bpm regular and his blood pressure was 122/74 mmHg. His cardiac auscultation was unremarkable. There was no evidence of congestive cardiac failure. His Holter recording was reviewed and noted. The patient may go home on present medications. I have spoken with his at length. Objective - Vital Signs/Intake and Output Vital Signs (last 24 hours): Temp Pulse Resp BP Pulse Ox 98.8 F 64 20 121/51 L 93 L 09/05/18 19:25 09/06/18 08:45 09/06/18 08:45 09/06/18 08:45 09/06/18 08:45 - Medications Medications: Current Medications Acetaminophen/Codeine Phosphate (Tylenol/Codeine 300 Mg/30 Mg) 1 tab PO TID PRN PRN Reason: Pain less than 4/10 Atorvastatin Calcium (Lipitor) 20 mg PO HS [facility] Last Admin: 09/05/18 21:54 Dose: 20 mg Docusate Sodium (Colace) 100 mg PO TID [facility] Last Admin: 09/06/18 08:38 Dose: 100 mg Latanoprost (Xalatan Opht) 1 drop OU HS [facility] Last Admin: 09/05/18 21:57 Dose: 1 drop Lidocaine (Lidoderm) 1 ea TD DAILY [facility] Last Admin: 09/06/18 08:39 Dose: 1 ea Lisinopril (Zestril) 10 mg PO DAILY [facility] Last Admin: 09/06/18 08:39 Dose: 10 mg Metoprolol Tartrate (Lopressor) 12.5 mg PO Q12 [facility] Last Admin: 09/06/18 08:39 Dose: 12.5 mg Nystatin (Mycostatin Oint) 1 applic TOP TID [facility] Last Admin: 09/06/18 08:39 Dose: 1 applic Oxycodone HCl (Oxycontin Extended Release Tab) 10 mg PO Q12 [facility] Last Admin: 09/06/18 08:39 Dose: 10 mg Oxycodone HCl (Oxycodone Immediate Release Tab) 5 mg PO Q6 PRN PRN Reason: pain 8-10/10 Last Admin: 09/05/18 13:13 Dose: 5 mg Pantoprazole Sodium (Protonix Ec Tab) 40 mg PO DAILY [facility] Last Admin: 09/06/18 08:39 Dose: 40 mg Rivaroxaban (Xarelto) 20 mg PO QD5 [facility]; Protocol Last Admin: 09/05/18 17:18 Dose: 20 mg Tamsulosin HCl (Flomax) 0.4 mg PO HS [facility] Last Admin: 09/05/18 21:55 Dose: 0.4 mg Tramadol HCl (Ultram) 50 mg PO Q8 PRN PRN Reason: Pain, Severe -05/21 Last Admin: 09/06/18 09:28 Dose: 50 mg - Labs Labs: 09/05/18 06:18 09/05/18 06:18
--- NOTE | 2018-09-06 11:25 | CP.PCM.PN ---
Subjective - Date & Time of Evaluation Date of Evaluation: 09/06/18 Time of Evaluation: 11:21 - Subjective Subjective: Patient states he is feeling better, rash is itchy but improving. Pain in knee in controlled. Denies CP/SOB/dizziness. Objective - Vital Signs/Intake and Output Vital Signs (last 24 hours): Temp Pulse Resp BP Pulse Ox 98.8 F 64 20 121/51 L 93 L 09/05/18 19:25 09/06/18 08:45 09/06/18 08:45 09/06/18 08:45 09/06/18 08:45 - Medications Medications: Current Medications Acetaminophen/Codeine Phosphate (Tylenol/Codeine 300 Mg/30 Mg) 1 tab PO TID PRN PRN Reason: Pain less than 4/10 Atorvastatin Calcium (Lipitor) 20 mg PO HS [facility] Last Admin: 09/05/18 21:54 Dose: 20 mg Docusate Sodium (Colace) 100 mg PO TID [facility] Last Admin: 09/06/18 08:38 Dose: 100 mg Latanoprost (Xalatan Opht) 1 drop OU HS [facility] Last Admin: 09/05/18 21:57 Dose: 1 drop Lidocaine (Lidoderm) 1 ea TD DAILY [facility] Last Admin: 09/06/18 08:39 Dose: 1 ea Lisinopril (Zestril) 10 mg PO DAILY [facility] Last Admin: 09/06/18 08:39 Dose: 10 mg Metoprolol Tartrate (Lopressor) 12.5 mg PO Q12 [facility] Last Admin: 09/06/18 08:39 Dose: 12.5 mg Nystatin (Mycostatin Oint) 1 applic TOP TID [facility] Last Admin: 09/06/18 08:39 Dose: 1 applic Oxycodone HCl (Oxycontin Extended Release Tab) 10 mg PO Q12 [facility] Last Admin: 09/06/18 08:39 Dose: 10 mg Oxycodone HCl (Oxycodone Immediate Release Tab) 5 mg PO Q6 PRN PRN Reason: pain 8-1010 Last Admin: 09/05/18 13:13 Dose: 5 mg Pantoprazole Sodium (Protonix Ec Tab) 40 mg PO DAILY [facility] Last Admin: 09/06/18 08:39 Dose: 40 mg Rivaroxaban (Xarelto) 20 mg PO QD5 [facility]; Protocol Last Admin: 09/05/18 17:18 Dose: 20 mg Tamsulosin HCl (Flomax) 0.4 mg PO HS [facility] Last Admin: 09/05/18 21:55 Dose: 0.4 mg Tramadol HCl (Ultram) 50 mg PO Q8 PRN PRN Reason: Pain, Severe 4-05/21 Last Admin: 09/06/18 09:28 Dose: 50 mg - Labs Labs: 09/05/18 06:18 09/05/18 06:18 - Extremities Exam Additional comments: Left knee dressing changed. Incision intact, no erythema, calves soft NT neg homans. Rash improving. sensation intact Assessment and Plan (1) Osteoarthritis of left knee Assessment & Plan: S/p TKR for d/c home today continue aspirin for VTE proph f/u [address] Adler call for appt d/w Dr. Adler, agrees with above Status: Acute
[2018-09-06] MEDS ORDERED: Influenza Vaccine 60 MCG/0.5 ML SYR (3 yr & up) IM ONE (12:29)
== END 2018-09-06 15:44 | disposition home or self-care (01) | DRG 561 ==
LOC: H.TCU 14:49
PROVIDERS: ADMIT Family Medicine; ATTEND Family Medicine
PROC: F07Z9FZ Gait Training/Functional Ambulation Treatment using Assistive, Adaptive, Supportive or Protective Equipment (ICD-10-PCS; principal; 2018-09-02)
PROC: F07L6FZ Therapeutic Exercise Treatment of Musculoskeletal System - Lower Back / Lower Extremity using Assistive, Adaptive, Supportive or Protective Equipment (ICD-10-PCS; 2018-09-02)
PROC: F08Z4FZ Home Management Treatment using Assistive, Adaptive, Supportive or Protective Equipment (ICD-10-PCS; 2018-09-03)
PROC: 3E02340 Introduction of Influenza Vaccine into Muscle, Percutaneous Approach (ICD-10-PCS; 2018-09-06)
DX: Z47.1 Aftercare following joint replacement surgery (principal); Z96.652 Presence of left artificial knee joint; I48.0 Paroxysmal atrial fibrillation; M17.12 Unilateral primary osteoarthritis, left knee; I12.9 Hypertensive chronic kidney disease with stage 1 through stage 4 chronic kidney disease, or unspecified chronic kidney disease; N18.9 Chronic kidney disease, unspecified; D64.9 Anemia, unspecified; E78.5 Hyperlipidemia, unspecified; K86.89 Other specified diseases of pancreas; N40.0 Benign prostatic hyperplasia without lower urinary tract symptoms; K80.20 Calculus of gallbladder without cholecystitis without obstruction; Z96.643 Presence of artificial hip joint, bilateral; Z23 Encounter for immunization; Z87.442 Personal history of urinary calculi